=== PATIENT | female | born 1960 | race Caucasian/White ===

== ENCOUNTER 2016-08-23 08:49 | Inpatient (IN) | payer OTHER ==
[~2016-08-23 08:49] MED LIST: DEXAMETHASONE 4 MG/ML VIAL ONE; HYDROmorphONE/DILAUDID 2 MG/ML INJ ONE; LIDOCAINE 2% 100 MG/5 ML SYR IVP ONE; ONDANSETRON 4 MG/2 ML VIAL ONE; PROPOFOL 200 MG/20 ML VIAL ONE; ROCURONIUM 50 MG/5 ML VIAL ONE; SUGAMMADEX SODIUM 200 MG/2 ML VIAL IVP ONE; cefOXitin SODIUM 1 GM in D5W 50 ML IV ONE; fentaNYL 100 MCG/2 ML INJ ONE
[2016-08-23] MEDS ORDERED: LR 1,000 ML IV ONE (09:29)
[2016-08-23] MEDS ORDERED: LIDOCAINE 1% 5 ML SDV ID PRN (09:29)
[2016-08-23] MEDS ORDERED: BUPIVACAINE 0.5% 30 ML SDV ONE (09:54)
[2016-08-23] MEDS ORDERED: MIDAZOLAM 2 MG/2 ML VIAL ONE (10:07)
--- NOTE | 2016-08-23 12:14 | POSTOPPROG ---
Post Op Note Date of Operation: 08/23/16 Surgeon: Victoriano Verdin Social Services Analyst: Alexis Anesthesiologist: Alejandra Anesthesia: GET(General Endotracheal) Pre-op Diagnosis: cecal polyp Post-op Diagnosis: same Procedure: Lap assisted right colectomy Inf/Abcess present in the surg proc area at time of surgery?: No EBL: 50-100
[2016-08-23] MEDS ORDERED: fentaNYL 100 MCG/2 ML INJ ONE (12:34)
[2016-08-23] MEDS ORDERED: ONDANSETRON 4 MG/2 ML VIAL ONE (12:35)
[2016-08-23] MEDS ORDERED: HYDROmorphONE/DILAUDID 1 MG/ML SYR ONE (13:11)
[2016-08-23] MEDS: HYDROmorphONE/DILAUDID 1 MG/ML SYR IVP PRN ×2 (13:57→16:00)
[2016-08-23] MEDS: LR 1,000 ML IV SCH (14:00)
[2016-08-23] MEDS: ONDANSETRON 4 MG/2 ML VIAL IVP PRN ×2 (14:06→21:43)
[2016-08-23] MEDS ORDERED: NALOXONE HCL 0.4 MG/ML INJ IVP PRN (16:46)
[2016-08-23] MEDS ORDERED: HYDROmorphONE/DILAUDID 6 MG/30 ML PCA IV PRN (16:46)
[2016-08-23] MEDS: PROMETHAZINE HCL 25 MG/ML INJ IVP PRN (18:13)
--- NOTE | 2016-08-23 18:19 | GOP ---
DATE OF OPERATION: 08/23/2016 SURGEON: German Verdin MD SUPERVISOR FILTER ASSEMBLY: Stephanie Espinoza, whose presence was requested by me and medically necessary for the safe and timely completion of the case. ANESTHESIA: General endotracheal. ANESTHESIOLOGIST: Dr. Roberts PREOPERATIVE DIAGNOSIS: Cecal polyp. POSTOPERATIVE DIAGNOSIS: Cecal polyp. PROCEDURE PERFORMED: Laparoscopic-assisted right colectomy. FINDINGS: The patient's polyp was not present on initial cecectomy specimen. A right partial colec que was performed in a laparoscopic-assisted fashion. ESTIMATED BLOOD LOSS: 50 cc. INDICATIONS: A 56-year-old female with a history of a cecal polyp on colonoscopy. Risks and benefi ts of the procedure were discussed with the patient and her family, and their questions were answere d and they wished to proceed. DESCRIPTION OF PROCEDURE: Patient was in the supine position. After the induction of adequate gene ral endotracheal anesthesia, the patient was prepped and draped in a standard surgical fashion. 0.5 % Marcaine was injected throughout the infraumbilical area for local anesthesia. A 5 mm incision was made. The abdominal wall was elevated. A Veress needle inserted and after noti ng proper pressures, the abdomen was insufflated with carbon dioxide. A 5 mm trocar was passed and the camera followed. There was no apparent damage from trocar placement. Two more ports were place d, one 5 mm port in the suprapubic midline and one 12 mm port in the left lower quadrant. These wer e both placed under direct vision after injecting 0.5% Marcaine for local anesthesia. The abdomen was inspected. The liver and small bowel appeared normal. The right colon was grasped by the appendix and retracted medially. The white line of Toldt was then divided using sharp dissec tion and cautery. The colon was fully mobilized in this fashion, taking care to avoid the ureter. The seal of Treves were then mobilized in a similar fashion allowing inspection of the ileocecal johanna ction. After this was cleared off and the mesoappendix was divided using cautery, an Endo-SINGH stapl er with a blue load was fired across the base of the cecum, just below the insertion of the terminal ilium. This was carried across with another firing of the Endo-SINGH stapler. The specimen was then withdrawn with an EndoCatch bag and examined on the back table. On examination, the polyp was not identified. It was sent for pathologic inspection and they were u nable to identify the polyp. Therefore, a decision was made to proceed with right colectomy. The mobilization of right colon was completed by mobilizing the hepatic flexure using sharp dissecti on and cautery. Duodenum was carefully avoided as the colon was medialized. At this point, a mini laparotomy incision was made. After injecting 0.5% Marcaine, the infraumbilical incision was extend ed using a #10 blade. This was carried down to subcutaneous tissue with Bovie cautery and blunt dis section. The fascia was divided in the midline and the abdomen was entered. An Hugh wound protec tor was placed. The appendix and cecum were delivered into the incision. The area was palpated and the polyp was no pam near the ileocecal junction. Therefore, windows were opened in the mesentery using blunt dissec tion. The mesentery was serially clamped, divided, and ligated with 2-0 Vicryl ties. Sites for tra nsection were chosen. The bowel clamps were applied gently and the ilium was transected sharply. A pursestring suture of 3-0 PDS was placed. Once this was done, the anvil for an EEA 25 stapler was placed and the pursestring suture was tightened. The area was cleared off using blunt dissection an d cautery. The cecum itself was prepared. After bowel clamps were placed gently, an enterotomy was opened usin g cautery in the proximal cecum. The EEA stapler was placed through this and the spike extended. T his was mated to the anvil after ensuring there was no twisting or tension. The stapler was fired a nd the area inspected. A widely patent anastomosis was noted. The remaining colon was then transec pam with the Endo-SINGH stapler with a blue load x2. Once again, the area was inspected for patency o f the anastomosis, and twisting or tension. The bowel was then returned to its anatomical position and covered with the omentum. The area was inspected and good hemostasis was noted. The fascia at the 12 mm port site was closed using 0 Vicryl in an interrupted fashion. The fascia a t the mini laparotomy site was closed with 0 PDS in a running fashion. The wounds were thoroughly i rrigated and the skin at all sites was closed with 4-0 Monocryl in a subcuticular stitch. The wound s were sterilely dressed, the patient was extubated and taken to the PACU in stable condition. COMPLICATIONS: None. DRAINS: None. /[id number]/MODL
[2016-08-24] MEDS: ONDANSETRON 4 MG/2 ML VIAL IVP PRN ×3 (00:28→09:17)
[2016-08-24] MEDS: PROMETHAZINE HCL 25 MG/ML INJ IVP PRN (00:57)
[2016-08-24] MEDS: NALTREXONE 4.5 MG PO SCH (09:17)
--- NOTE | 2016-08-24 10:04 | SOAPPROG ---
SOAP Progress Note Assessment/Plan: Assessment: Plan: 08/24/16 10:02 Start toradol/tylenol. Clears slowly. Ambulate, IS. Subjective: Patient feels better, pain improved. Minimal nausea. Some ambulation. Objective: Vital Signs Temp Pulse Resp BP Pulse Ox 36.9 C 53 L 14 123/60 H 99 08/24/16 07:53 08/24/16 07:53 08/24/16 07:53 08/24/16 07:53 08/24/16 07:53 08/23/16 08/24/16 08/25/16 05:59 05:59 05:59 Intake Total 3492 Output Total 100 300 Balance 3392 -300 Alert, NAD RRR Abd soft, inc TTP Inc C/D/I ICD10 Worksheet Patient Problems: Problems Problem Status Onset Colon adenoma Acute
[2016-08-24] MEDS: KETOROLAC 15 MG/1 ML SDV IVP SCH ×2 (10:15→18:13)
[2016-08-24] MEDS: ACETAMINOPHEN 500 MG TAB PO PRN ×2 (16:08→21:59)
[2016-08-25] MEDS: KETOROLAC 15 MG/1 ML SDV IVP SCH ×3 (02:36→18:38)
[2016-08-25] MEDS: LR 1,000 ML IV SCH (05:17)
[2016-08-25] MEDS: ACETAMINOPHEN 500 MG TAB PO PRN ×2 (05:18→12:09)
--- NOTE | 2016-08-25 09:30 | SOAPPROG ---
SOAP Progress Note Assessment/Plan: Assessment: Plan: 08/24/16 10:02 Improving. Advance diet, cont ambulation. 08/25/16 09:29 Subjective: Patient feels markedly better, minimal pain. No N/V. Oliverio clears without difficulty. Ambulating, voiding. Objective: Vital Signs Temp Pulse Resp BP Pulse Ox 36.9 C 61 16 119/64 94 08/25/16 08:19 08/25/16 08:19 08/25/16 08:19 08/25/16 08:19 08/25/16 08:19 08/24/16 08/25/16 08/26/16 05:59 05:59 05:59 Intake Total 3492 1750 2326 Output Total 100 300 Balance 3392 1450 2326 Alert, NAD RRR Abd soft, inc TTP Inc C/D/I ICD10 Worksheet Patient Problems: Problems Problem Status Onset Colon adenoma Acute
[2016-08-25] MEDS: NALTREXONE 4.5 MG PO SCH (09:41)
[2016-08-25] MEDS ORDERED: LR 1,000 ML IV SCH (13:30)
[2016-08-25] MEDS: PROMETHAZINE HCL 25 MG/ML INJ IVP PRN (16:44)
--- NOTE | 2016-08-25 16:45 | CPEKG ---
Heart Rate: 82 RR Interval: 732 P-R Interval: 160 QRSD Interval: 76 QT Interval: 352 QTC Interval: 411 P [place]: 58 QRS [place]: 64 T Wave [place]: 34 EKG Severity - BORDERLINE ECG - EKG Impression: SINUS RHYTHM Electronically Signed By: Gallo Rouse 26-Aug-2016 14:36:04
[2016-08-25 16:58] LABS: % IMMATURE GRANULYOCYTES 0.2 % (0.0-1.1); ABSOLUTE IMMATURE GRANULOCYTES 0.01 10^3/uL (0.00-0.10); ADD DIFF? NO; ADD MORPH? NO; ADD SCAN? NO; ATYPICAL LYMPHOCYTE FLAG 0 (0-99); FRAGMENT RBC FLAG 0 (0-99); HEMOGLOBIN 11.2 g/dL (12.6-16.3); LEFT SHIFT FLG 70 (0-99); LIPEMIA HEMOLYSIS FLAG 80 (0-99); MEAN CELL HEMOGLOBIN 24.9 pg (27.9-34.1); MEAN CELL HEMOGLOBIN CONCENTR. 32.9 g/dL (32.4-36.7); MEAN CELL VOLUME 75.7 fL (81.5-99.8); MEAN PLATELET VOLUME 10.3 fL (8.7-11.7); PLATELET CLUMPS FLAG 10 (0-99); PLATELET COUNT 217 10^3/uL (150-400); RED BLOOD CELL COUNT 4.49 10^6/uL (4.18-5.33); RED CELL DISTRIBUTION WIDTH 14.6 % (11.5-15.2)
[2016-08-25 17:19] LABS: ANION GAP 9 mEq/L (8-16); CALCIUM 8.4 mg/dL (8.5-10.4); CARBON DIOXIDE 29 mEq/l (22-31); CHLORIDE 96 mEq/L (97-110); CREATININE 0.5 mg/dL (0.6-1.0); GLOMERULAR FILTRATION RATE > 60; GLUCOSE 120 mg/dL (70-100); POTASSIUM 3.4 mEq/L (3.5-5.2); SODIUM 134 mEq/L (134-144)
[2016-08-25] MEDS: NS W/ 20 KCl/L 1,000 ML IV SCH (18:37)
[2016-08-25] MEDS ORDERED: IOPAMIDOL (ISOVUE-300) 100 ML BTL IV ONE (18:42)
[2016-08-25] MEDS: PIPERACILLIN/TAZO 3.375 GM/DEX 50 ML IV SCH (23:22)
[2016-08-26] MEDS: KETOROLAC 15 MG/1 ML SDV IVP SCH ×3 (02:11→20:23)
[2016-08-26] MEDS: PIPERACILLIN/TAZO 3.375 GM/DEX 50 ML IV SCH ×4 (05:29→23:46)
[2016-08-26 05:39] LABS: % IMMATURE GRANULYOCYTES 0.2 % (0.0-1.1); ABSOLUTE IMMATURE GRANULOCYTES 0.01 10^3/uL (0.00-0.10); ADD DIFF? NO; ADD MORPH? NO; ADD SCAN? YES; ATYPICAL LYMPHOCYTE FLAG 0 (0-99); FRAGMENT RBC FLAG 0 (0-99); HEMATOCRIT 31.5 % (38.0-47.0); HEMOGLOBIN 10.2 g/dL (12.6-16.3); LIPEMIA HEMOLYSIS FLAG 80 (0-99); MEAN CELL HEMOGLOBIN 24.3 pg (27.9-34.1); MEAN CELL HEMOGLOBIN CONCENTR. 32.4 g/dL (32.4-36.7); MEAN CELL VOLUME 75.2 fL (81.5-99.8); MEAN PLATELET VOLUME 10.9 fL (8.7-11.7); PLATELET CLUMPS FLAG 10 (0-99); PLATELET COUNT 226 10^3/uL (150-400); RED BLOOD CELL COUNT 4.19 10^6/uL (4.18-5.33); RED CELL DISTRIBUTION WIDTH 14.9 % (11.5-15.2)
[2016-08-26 05:58] LABS: ALANINE AMINOTRANSFERASE 28 IU/L (9-52); ALBUMIN 2.4 g/dL (3.5-5.0); ALKALINE PHOSPHATASE 59 IU/L (38-126); ANION GAP 7 mEq/L (8-16); ASPARTATE AMINOTRANSFERASE 16 IU/L (14-46); BILIRUBIN,TOTAL 0.7 mg/dL (0.1-1.4); CALCIUM 8.2 mg/dL (8.5-10.4); CARBON DIOXIDE 29 mEq/l (22-31); CHLORIDE 99 mEq/L (97-110); CREATININE 0.6 mg/dL (0.6-1.0); GLOMERULAR FILTRATION RATE > 60; GLUCOSE 78 mg/dL (70-100); MAGNESIUM 1.8 mg/dL (1.6-2.3); POTASSIUM 3.7 mEq/L (3.5-5.2); SODIUM 135 mEq/L (134-144); TOTAL PROTEIN 4.9 g/dL (6.3-8.2)
[2016-08-26 06:09] LABS: LEFT SHIFT FLG 230 (0-99)
[2016-08-26 07:08] LABS: SCAN POSITIVE
[2016-08-26 07:13] LABS: MICROCYTES 1+; PLATELET ESTIMATE ADEQUATE (ADEQ)
[2016-08-26] MEDS: PROMETHAZINE HCL 25 MG/ML INJ IVP PRN (08:20)
--- NOTE | 2016-08-26 08:35 | SOAPPROG ---
QUIRINO Progress Note Assessment/Plan: Assessment: Plan: 08/24/16 10:02 Exam stable. Will continue conservative measures, but if no improvement plan exploration. D/w patient, questions answered. 08/25/16 09:29 08/26/16 08:33 Subjective: No changes, some discomfort when standing, none at rest. Denies N/V. No BM. Objective: Vital Signs Temp Pulse Resp BP Pulse Ox 36.9 C 68 16 92/54 L 100 08/26/16 08:00 08/26/16 08:00 08/26/16 08:00 08/26/16 08:00 08/26/16 08:00 Laboratory Results 08/26/16 04:59 08/26/16 04:59 08/25/16 08/26/16 08/27/16 05:59 05:59 05:59 Intake Total 1750 4498 Output Total 300 600 Balance 1450 3898 Alert, NAD RRR Abd inc TTP, +/- guarding. ICD10 Worksheet Patient Problems: Problems Problem Status Onset Colon adenoma Acute
[2016-08-26] MEDS ORDERED: BUPIVACAINE 0.5% 30 ML SDV ONE (13:18)
[2016-08-26] MEDS ORDERED: SCOPOLAMINE HYDROBROMIDE 1.5 MG PATCH TD ONE ×2 (16:55→17:00)
[2016-08-26] MEDS ORDERED: fentaNYL 100 MCG/2 ML INJ ONE (16:57)
[2016-08-26] MEDS ORDERED: LIDOCAINE 2% 5 ML SDV ONE (16:58)
[2016-08-26] MEDS ORDERED: DEXAMETHASONE 4 MG/ML VIAL ONE (16:58)
[2016-08-26] MEDS ORDERED: PROPOFOL/EMULSION 500 MG/50 ML BOTTLE IV ONE (16:58)
[2016-08-26] MEDS ORDERED: ROCURONIUM 50 MG/5 ML VIAL ONE ×2 (16:58→18:19)
[2016-08-26] MEDS ORDERED: DEXMEDETOMIDINE HCL 400 MCG in NS 100 ML IV SCH (17:00)
[2016-08-26] MEDS ORDERED: ONDANSETRON 4 MG/2 ML VIAL ONE (18:27)
--- NOTE | 2016-08-26 19:01 | POSTOPPROG ---
Post Op Note Date of Operation: 08/26/16 Surgeon: Victoriano Verdin Anesthesiologist: Andres Pre-op Diagnosis: peritonitis Post-op Diagnosis: bowel perforation Procedure: Diagnostic laparoscopy, repair of perforation Inf/Abcess present in the surg proc area at time of surgery?: Yes Depth: Organ Space EBL: Minimal Drains: Hosea Leija
--- NOTE | 2016-08-26 22:09 | GOP ---
DATE OF OPERATION: 08/26/2016 SURGEON: German Verdin MD PREOPERATIVE DIAGNOSIS: Peritonitis. POSTOPERATIVE DIAGNOSIS: Bowel perforation. PROCEDURE PERFORMED: 1. Diagnostic laparoscopy. 2. Enterorrhaphy. FINDINGS: The patient had a small hole in the anterior aspect of the ileocolic anastomosis. Modera te contamination was identified. No other lesions were identified. INDICATIONS: This is a 56-year-old female, status post laparoscopic-assisted right colectomy. The patient had peritoneal signs on exam. Risks and benefits of procedure were discussed with patient a nd family, their questions were answered. They wished to proceed. DESCRIPTION OF PROCEDURE: Patient was in supine position. After induction of adequate general endo tracheal anesthesia, the patient was prepped and draped in standard surgical fashion. 0.5% Marcaine was injected throughout the right lower quadrant incision. This was then opened with a #15 blade. The suture holding the fascia together was identified; this was transected with a blade. The table was rotated away and retractor was inserted into the fascial defect. The abdomen was entered easil y and the 12 mm trocar was passed. A camera followed, and there was no apparent damage from trocar placement. There was a moderate amount of seropurulent fluid concentrated in the right lower quadra nt and right upper quadrant. Two more ports were placed, both 5 mm ports, in the prior incision sit es in the suprapubic and infraumbilical midline; this was done after injecting 0.5% Marcaine for loc al anesthesia. The abdomen was then thoroughly irrigated and aspirated. The anastomosis was inspected. There was an approximately 1-2 mm hole in the anterior aspect of the anastomosis. The intestine was inspected and it was quite viable. There was no evidence of twisting or significant swelling. The remainder of the bowel was then examined and no other lesions were noted. Due to the apparent health of the bowel and lack of tension in the anastomosis, decision was made to repair this small perforation. Sutures of 3-0 Vicryl were laparoscopically placed to close the perforation. This was then reinforc ed with 3-0 Vicryl Lembert sutures in a horizontal mattress fashion; this resulted in excellent cove rage without noted compromise of the lumen. The staple lines were again inspected closely and no le sions were noted. Once again, the abdomen was thoroughly irrigated and aspirated and inspected. Du e to the contamination and likely paralysis of the bowel, an NG tube was placed by Dr. Pretty. Thi s was observed with laparoscope to adequate placement. A JENNY drain was then placed through the infer ior stab incision and placed in the right gutter behind the colon; this was secured with a 2-0 nylon in interrupted fashion. Once again, the abdomen was inspected. No other lesions were identified. The trocars were withdrawn under direct vision. The pneumoperitoneum was allowed to escape. The fa scia at both remaining port sites was closed with 0 Vicryl in interrupted fashion. Wounds were thor oughly irrigated and the skin was closed with 4-0 Monocryl in subcuticular stitch. The wounds were sterilely dressed, and the patient was extubated and taken to PACU in stable condition. /[id number]/MODL
[2016-08-26] MEDS: NS W/ 20 KCl/L 1,000 ML IV SCH (23:48)
[2016-08-27] MEDS: KETOROLAC 15 MG/1 ML SDV IVP SCH ×3 (02:29→17:55)
[2016-08-27 05:43] LABS: % IMMATURE GRANULYOCYTES 0.4 % (0.0-1.1); ABSOLUTE IMMATURE GRANULOCYTES 0.02 10^3/uL (0.00-0.10); ADD DIFF? NO; ADD MORPH? NO; ADD SCAN? YES; ATYPICAL LYMPHOCYTE FLAG 0 (0-99); FRAGMENT RBC FLAG 0 (0-99); HEMATOCRIT 30.7 % (38.0-47.0); HEMOGLOBIN 9.7 g/dL (12.6-16.3); LIPEMIA HEMOLYSIS FLAG 80 (0-99); MEAN CELL HEMOGLOBIN CONCENTR. 31.6 g/dL (32.4-36.7); MEAN PLATELET VOLUME 10.7 fL (8.7-11.7); PLATELET CLUMPS FLAG 0 (0-99); PLATELET COUNT 240 10^3/uL (150-400); RED BLOOD CELL COUNT 4.04 10^6/uL (4.18-5.33); RED CELL DISTRIBUTION WIDTH 15.2 % (11.5-15.2)
[2016-08-27 05:48] LABS: LEFT SHIFT FLG 300 (0-99)
[2016-08-27] MEDS: PIPERACILLIN/TAZO 3.375 GM/DEX 50 ML IV SCH ×4 (06:00→23:59)
[2016-08-27 06:06] LABS: ALANINE AMINOTRANSFERASE 27 IU/L (9-52); ALBUMIN 2.2 g/dL (3.5-5.0); ALKALINE PHOSPHATASE 63 IU/L (38-126); ANION GAP 13 mEq/L (8-16); ASPARTATE AMINOTRANSFERASE 18 IU/L (14-46); BILIRUBIN,TOTAL 0.7 mg/dL (0.1-1.4); CALCIUM 8.6 mg/dL (8.5-10.4); CARBON DIOXIDE 22 mEq/l (22-31); CHLORIDE 106 mEq/L (97-110); CREATININE 0.7 mg/dL (0.6-1.0); GLOMERULAR FILTRATION RATE > 60; GLUCOSE 81 mg/dL (70-100); POTASSIUM 4.2 mEq/L (3.5-5.2); SODIUM 141 mEq/L (134-144); TOTAL PROTEIN 4.6 g/dL (6.3-8.2)
[2016-08-27 07:11] LABS: SCAN POSITIVE
[2016-08-27 07:20] LABS: PLATELET ESTIMATE ADEQUATE (ADEQ); POLYCHROMASIA 1+
[2016-08-27] MEDS ORDERED: D10W 1,000 ML IV PRN (09:32)
--- NOTE | 2016-08-27 09:34 | SOAPPROG ---
SOAP Progress Note Assessment/Plan: Assessment: Plan: 08/24/16 10:02 Improved. Will start TPN, cont NGT/NPO. Cont abx, await cx results. Ambulate. 08/25/16 09:29 08/26/16 08:33 08/27/16 09:33 Subjective: Patient feels better, minimal pain, no N/V. +flatus. Objective: Vital Signs Temp Pulse Resp BP Pulse Ox 37.1 C 78 18 91/53 L 92 08/27/16 08:50 08/27/16 08:50 08/27/16 08:50 08/27/16 08:50 08/27/16 08:50 Microbiology 08/26/16 17:33 Gram Stain - Final Peritoneal Fluid - Eswab Laboratory Results 08/27/16 04:55 08/27/16 04:55 08/26/16 08/27/16 08/28/16 05:59 05:59 05:59 Intake Total 4498 3828 Output Total 600 310 Balance 3898 3518 Alert, NAD RRR Abd soft, inc TTP Inc C/D/I JENNY serosang ICD10 Worksheet Patient Problems: Problems Problem Status Onset Colon adenoma Acute
[2016-08-27] MEDS ORDERED: ALTEPLASE 2 MG VIAL IVP PRN (09:46)
[2016-08-27 10:46] LABS: ADD MORPH? NO; ATYPICAL LYMPHOCYTE FLAG 0 (0-99); FRAGMENT RBC FLAG 0 (0-99); HEMATOCRIT 30.6 % (38.0-47.0); HEMOGLOBIN 10.1 g/dL (12.6-16.3); LIPEMIA HEMOLYSIS FLAG 80 (0-99); MEAN CELL HEMOGLOBIN 24.7 pg (27.9-34.1); MEAN CELL VOLUME 74.8 fL (81.5-99.8); MEAN PLATELET VOLUME 10.6 fL (8.7-11.7); PLATELET CLUMPS FLAG 30 (0-99); PLATELET COUNT 273 10^3/uL (150-400); RED BLOOD CELL COUNT 4.09 10^6/uL (4.18-5.33); RED CELL DISTRIBUTION WIDTH 15.3 % (11.5-15.2)
[2016-08-27 10:50] LABS: ADD DIFF? YES; ADD SCAN? NO; LEFT SHIFT FLG 300 (0-99)
[2016-08-27 10:54] LABS: ALANINE AMINOTRANSFERASE 31 IU/L (9-52); ALBUMIN 2.3 g/dL (3.5-5.0); ALKALINE PHOSPHATASE 62 IU/L (38-126); ANION GAP 11 mEq/L (8-16); ASPARTATE AMINOTRANSFERASE 17 IU/L (14-46); BILIRUBIN,TOTAL 0.7 mg/dL (0.1-1.4); CALCIUM 8.6 mg/dL (8.5-10.4); CARBON DIOXIDE 21 mEq/l (22-31); CHLORIDE 109 mEq/L (97-110); CREATININE 0.7 mg/dL (0.6-1.0); GLOMERULAR FILTRATION RATE > 60; GLUCOSE 87 mg/dL (70-100); POTASSIUM 4.7 mEq/L (3.5-5.2); SODIUM 141 mEq/L (134-144); TOTAL PROTEIN 4.8 g/dL (6.3-8.2); TRIGLYCERIDE 84 mg/dL (35-135)
[2016-08-27 11:15] LABS: INR 1.46 (0.83-1.16); PROTIME(PATIENT) 17.7 SEC (12.0-15.0)
[2016-08-27 11:16] LABS: APTT 32.5 SEC (23.0-38.0)
[2016-08-27 11:38] LABS: PLATELET ESTIMATE ADEQUATE (ADEQ); POLYCHROMASIA 1+
[2016-08-27] MEDS: TPN W/ FAMOTIDINE 1 EA BAG IV SCH (22:31)
[2016-08-27] MEDS: NS W/ 20 KCl/L 1,000 ML IV SCH (22:31)
[2016-08-28] MEDS: KETOROLAC 15 MG/1 ML SDV IVP SCH ×3 (01:33→18:27)
[2016-08-28] MEDS: ONDANSETRON 4 MG/2 ML VIAL IVP PRN ×2 (01:44→10:01)
[2016-08-28] MEDS: PIPERACILLIN/TAZO 3.375 GM/DEX 50 ML IV SCH ×3 (05:29→18:27)
[2016-08-28 06:03] LABS: ADD MORPH? NO; ADD SCAN? YES; ATYPICAL LYMPHOCYTE FLAG 0 (0-99); FRAGMENT RBC FLAG 0 (0-99); HEMATOCRIT 27.7 % (38.0-47.0); HEMOGLOBIN 8.9 g/dL (12.6-16.3); LIPEMIA HEMOLYSIS FLAG 80 (0-99); MEAN CELL HEMOGLOBIN 23.9 pg (27.9-34.1); MEAN CELL HEMOGLOBIN CONCENTR. 32.1 g/dL (32.4-36.7); MEAN CELL VOLUME 74.3 fL (81.5-99.8); MEAN PLATELET VOLUME 10.3 fL (8.7-11.7); PLATELET CLUMPS FLAG 0 (0-99); PLATELET COUNT 265 10^3/uL (150-400); RED BLOOD CELL COUNT 3.73 10^6/uL (4.18-5.33); RED CELL DISTRIBUTION WIDTH 15.5 % (11.5-15.2)
[2016-08-28 06:07] LABS: INR 1.13 (0.83-1.16); PROTIME(PATIENT) 14.4 SEC (12.0-15.0)
[2016-08-28 06:08] LABS: APTT 30.4 SEC (23.0-38.0)
[2016-08-28 06:15] LABS: ALANINE AMINOTRANSFERASE 24 IU/L (9-52); ALBUMIN 2.1 g/dL (3.5-5.0); ALKALINE PHOSPHATASE 57 IU/L (38-126); ANION GAP 6 mEq/L (8-16); ASPARTATE AMINOTRANSFERASE 15 IU/L (14-46); BILIRUBIN,TOTAL 0.4 mg/dL (0.1-1.4); CALCIUM 8.5 mg/dL (8.5-10.4); CARBON DIOXIDE 26 mEq/l (22-31); CHLORIDE 109 mEq/L (97-110); CREATININE 0.7 mg/dL (0.6-1.0); GLOMERULAR FILTRATION RATE > 60; GLUCOSE 147 mg/dL (70-100); POTASSIUM 3.9 mEq/L (3.5-5.2); SODIUM 141 mEq/L (134-144); TOTAL PROTEIN 4.3 g/dL (6.3-8.2)
[2016-08-28 06:23] LABS: LEFT SHIFT FLG 140 (0-99)
[2016-08-28 07:25] LABS: ADD DIFF? YES; SCAN POSITIVE
[2016-08-28 07:34] LABS: PLATELET ESTIMATE ADEQUATE (ADEQ)
[2016-08-28 07:37] LABS: LARGE PLATELETS PRESENT
[2016-08-28] MEDS ORDERED: BENZOCAINE UNIT DOSE SPRAY HURRICAINE MM PRN (11:39)
--- NOTE | 2016-08-28 11:39 | SOAPPROG ---
SOAP Progress Note Assessment/Plan: Assessment: Plan: 08/24/16 10:02 Stable post-op. Still with minimal evidence of bowel function, plan cont NGT/ IVF/IV abx. Cont JENNY. 08/26/16 08:33 08/27/16 09:33 08/28/16 11:36 Subjective: Patient c/o ST due to NGT. No further flatus, no BM. Ambulating. Objective: Vital Signs Temp Pulse Resp BP Pulse Ox 36.7 C 59 L 12 98/60 L 98 08/28/16 09:04 08/28/16 09:04 08/28/16 09:04 08/28/16 09:04 08/28/16 09:04 Microbiology 08/26/16 17:33 Mycobacterial Smear (MICHAEL) - Final Peritoneal Fluid - Eswab 08/26/16 17:33 Gram Stain - Final Peritoneal Fluid - Eswab Laboratory Results 08/28/16 05:15 08/28/16 05:15 08/27/16 08/28/16 08/29/16 05:59 05:59 05:59 Intake Total 3828 2303 265 Output Total 310 710 Balance 3518 1593 265 PT 14.4 SEC (12.0-15.0) 08/28/16 05:15 INR 1.13 (0.83-1.16) 08/28/16 05:15 Alert, NAD RRR Abd soft, inc TTP Inc C/D/I JENNY serous/serosang ICD10 Worksheet Patient Problems: Problems Problem Status Onset Colon adenoma Acute
[2016-08-28] MEDS ORDERED: INSULIN REGULAR, HUMAN 100 UNIT/1 ML VIAL LOW SC PRN (12:37)
[2016-08-28] MEDS ORDERED: D50W 25 GM/50 ML SYR IVP PRN (12:37)
[2016-08-28] MEDS ORDERED: PARAMETERS MISC PRN (12:37)
[2016-08-28] MEDS ORDERED: D50W 25 GM/50 ML VIAL IVP PRN (12:37)
[2016-08-28] MEDS: INSULIN REGULAR, HUMAN 100 UNIT/1 ML VIAL LOW SC SCH (18:26)
[2016-08-28] MEDS: TPN W/ FAMOTIDINE 1 EA BAG IV SCH (22:24)
[2016-08-29] MEDS: PIPERACILLIN/TAZO 3.375 GM/DEX 50 ML IV SCH ×4 (01:07→17:52)
[2016-08-29] MEDS: INSULIN REGULAR, HUMAN 100 UNIT/1 ML VIAL LOW SC SCH ×4 (01:14→18:24)
[2016-08-29] MEDS: KETOROLAC 15 MG/1 ML SDV IVP SCH (04:55)
[2016-08-29 05:10] LABS: % IMMATURE GRANULYOCYTES 0.8 % (0.0-1.1); ABSOLUTE IMMATURE GRANULOCYTES 0.06 10^3/uL (0.00-0.10); ADD DIFF? NO; ADD MORPH? NO; ADD SCAN? NO; ATYPICAL LYMPHOCYTE FLAG 30 (0-99); FRAGMENT RBC FLAG 0 (0-99); HEMATOCRIT 27.9 % (38.0-47.0); LEFT SHIFT FLG 30 (0-99); LIPEMIA HEMOLYSIS FLAG 80 (0-99); MEAN CELL HEMOGLOBIN 24.4 pg (27.9-34.1); MEAN CELL HEMOGLOBIN CONCENTR. 32.3 g/dL (32.4-36.7); MEAN CELL VOLUME 75.6 fL (81.5-99.8); MEAN PLATELET VOLUME 10.8 fL (8.7-11.7); PLATELET CLUMPS FLAG 0 (0-99); PLATELET COUNT 258 10^3/uL (150-400); RED BLOOD CELL COUNT 3.69 10^6/uL (4.18-5.33); RED CELL DISTRIBUTION WIDTH 15.7 % (11.5-15.2)
[2016-08-29 05:32] LABS: INR 1.1 (0.83-1.16); PROTIME(PATIENT) 14.1 SEC (12.0-15.0)
[2016-08-29 05:35] LABS: ALANINE AMINOTRANSFERASE 24 IU/L (9-52); ALBUMIN 2.2 g/dL (3.5-5.0); ALKALINE PHOSPHATASE 65 IU/L (38-126); ANION GAP 7 mEq/L (8-16); ASPARTATE AMINOTRANSFERASE 17 IU/L (14-46); BILIRUBIN,TOTAL 0.5 mg/dL (0.1-1.4); CALCIUM 7.9 mg/dL (8.5-10.4); CARBON DIOXIDE 27 mEq/l (22-31); CHLORIDE 110 mEq/L (97-110); CREATININE 0.5 mg/dL (0.6-1.0); GLOMERULAR FILTRATION RATE > 60; GLUCOSE 131 mg/dL (70-100); MAGNESIUM 1.9 mg/dL (1.6-2.3); POTASSIUM 3.4 mEq/L (3.5-5.2); SODIUM 144 mEq/L (134-144); TOTAL PROTEIN 4.8 g/dL (6.3-8.2); TRIGLYCERIDE 117 mg/dL (35-135)
[2016-08-29 05:38] LABS: APTT 28.3 SEC (23.0-38.0)
[2016-08-29] MEDS: NS W/ 20 KCl/L 1,000 ML IV SCH (10:34)
--- NOTE | 2016-08-29 11:15 | SOAPPROG ---
SOAP Progress Note Assessment/Plan: Assessment: Plan: 08/24/16 10:02 Improving. NGT d/c'd, will cont NPO for now. Cont JENNY, abx, TPN. 08/26/16 08:33 08/27/16 09:33 08/28/16 11:36 08/29/16 11:14 Subjective: Patient feels better, minimal pain, no N/V. +BM x 3. Objective: Vital Signs Temp Pulse Resp BP Pulse Ox 36.5 C 68 18 109/58 L 94 08/29/16 09:05 08/29/16 09:05 08/29/16 09:05 08/29/16 09:05 08/29/16 09:05 Microbiology 08/26/16 17:33 Gram Stain - Final Peritoneal Fluid - Eswab Laboratory Results 08/29/16 04:46 08/29/16 04:46 08/28/16 08/29/16 08/30/16 05:59 05:59 05:59 Intake Total 2303 1800 Output Total 710 280 35 Balance 1593 1520 -35 PT 14.1 SEC (12.0-15.0) 08/29/16 04:46 INR 1.10 (0.83-1.16) 08/29/16 04:46 Alert, NAD RRR Abd soft, NTTP Inc C/D/I JENNY serous. ICD10 Worksheet Patient Problems: Problems Problem Status Onset Colon adenoma Acute
[2016-08-29] MEDS ORDERED: K PHOS 10 MMOL in D5W 250 ML IV ONE (11:30)
[2016-08-29] MEDS: ACETAMINOPHEN 500 MG TAB PO PRN ×2 (11:42→20:13)
[2016-08-29] MEDS: POTASSIUM Cl (KCl) 100 ML IV SCH ×3 (14:09→16:54)
[2016-08-29] MEDS: TPN W/ FAMOTIDINE 1 EA BAG IV SCH (20:16)
[2016-08-30] MEDS: INSULIN REGULAR, HUMAN 100 UNIT/1 ML VIAL LOW SC SCH ×2 (00:14→06:44)
[2016-08-30] MEDS: PIPERACILLIN/TAZO 3.375 GM/DEX 50 ML IV SCH ×4 (00:21→17:43)
[2016-08-30 05:24] LABS: % IMMATURE GRANULYOCYTES 2.2 % (0.0-1.1); ABSOLUTE IMMATURE GRANULOCYTES 0.16 10^3/uL (0.00-0.10); ABSOLUTE NRBC COUNT 0.02 10^3/uL (0-0.01); ADD DIFF? NO; ADD MORPH? NO; ADD SCAN? YES; ATYPICAL LYMPHOCYTE FLAG 70 (0-99); FRAGMENT RBC FLAG 20 (0-99); HEMATOCRIT 28.9 % (38.0-47.0); HEMOGLOBIN 9.3 g/dL (12.6-16.3); LIPEMIA HEMOLYSIS FLAG 80 (0-99); MEAN CELL HEMOGLOBIN 24.1 pg (27.9-34.1); MEAN CELL HEMOGLOBIN CONCENTR. 32.2 g/dL (32.4-36.7); MEAN CELL VOLUME 74.9 fL (81.5-99.8); MEAN PLATELET VOLUME 10.6 fL (8.7-11.7); NRBC-AUTO% 0.3 % (0.0-0.2); PLATELET CLUMPS FLAG 0 (0-99); PLATELET COUNT 257 10^3/uL (150-400); RED BLOOD CELL COUNT 3.86 10^6/uL (4.18-5.33); RED CELL DISTRIBUTION WIDTH 15.7 % (11.5-15.2)
[2016-08-30 05:26] LABS: LEFT SHIFT FLG 140 (0-99)
[2016-08-30 05:28] LABS: ALANINE AMINOTRANSFERASE 22 IU/L (9-52); ALKALINE PHOSPHATASE 72 IU/L (38-126); ANION GAP 7 mEq/L (8-16); ASPARTATE AMINOTRANSFERASE 18 IU/L (14-46); BILIRUBIN,TOTAL 0.6 mg/dL (0.1-1.4); CARBON DIOXIDE 27 mEq/l (22-31); CHLORIDE 105 mEq/L (97-110); CREATININE 0.4 mg/dL (0.6-1.0); GLOMERULAR FILTRATION RATE > 60; GLUCOSE 99 mg/dL (70-100); MAGNESIUM 1.6 mg/dL (1.6-2.3); POTASSIUM 3.7 mEq/L (3.5-5.2); SODIUM 139 mEq/L (134-144); TOTAL PROTEIN 4.4 g/dL (6.3-8.2)
[2016-08-30 06:57] LABS: SCAN POSITIVE
[2016-08-30 07:14] LABS: MICROCYTES 1+
[2016-08-30 07:15] LABS: PLATELET ESTIMATE ADEQUATE (ADEQ); POLYCHROMASIA 1+
[2016-08-30 07:16] LABS: TOXIC GRANULATION PRESENT
[2016-08-30] MEDS: ACETAMINOPHEN 500 MG TAB PO PRN (07:42)
--- NOTE | 2016-08-30 09:19 | SOAPPROG ---
SOAP Progress Note Assessment/Plan: Assessment: Plan: 08/24/16 10:02 Some fever and tachycardia overnight, improved now. Check U/S for DVT, cont IS/ ambulation. Start clears again and monitor JENNY. D/w patient and family at length. 08/26/16 08:33 08/27/16 09:33 08/28/16 11:36 08/29/16 11:14 08/30/16 09:17 Subjective: Patient with some SOB overnight, improved now. Minimal pain. Denies N/V. Objective: Vital Signs Temp Pulse Resp BP Pulse Ox 37.9 C 85 14 112/54 L 93 08/30/16 08:46 08/30/16 08:46 08/30/16 08:46 08/30/16 08:46 08/30/16 08:46 Microbiology 08/26/16 17:33 Gram Stain - Final Peritoneal Fluid - Eswab Laboratory Results 08/30/16 04:10 08/30/16 04:10 08/29/16 08/30/16 08/31/16 05:59 05:59 05:59 Intake Total 1800 2550 Output Total 680 835 Balance 1120 1715 PT 14.1 SEC (12.0-15.0) 08/29/16 04:46 INR 1.10 (0.83-1.16) 08/29/16 04:46 Alert, NAD RRR Abd slightly distended, min TTP Inc C/D/I JENNY serous. ICD10 Worksheet Patient Problems: Problems Problem Status Onset Colon adenoma Acute
[2016-08-30] MEDS ORDERED: KETOROLAC 15 MG/1 ML SDV IVP SCH (09:30)
[2016-08-30] MEDS: KETOROLAC 15 MG/1 ML SDV IVP SCH ×2 (09:47→17:44)
[2016-08-30 15:48] LABS: INR 1.21 (0.83-1.16); PROTIME(PATIENT) 15.3 SEC (12.0-15.0)
[2016-08-30] MEDS ORDERED: ZOLPIDEM TARTRATE 5 MG TAB PO PRN (18:43)
[2016-08-30] MEDS: TPN W/ FAMOTIDINE 1 EA BAG IV SCH (20:11)
[2016-08-31] MEDS: KETOROLAC 15 MG/1 ML SDV IVP SCH ×3 (00:48→17:16)
[2016-08-31] MEDS: PIPERACILLIN/TAZO 3.375 GM/DEX 50 ML IV SCH ×4 (00:48→21:54)
[2016-08-31 05:31] LABS: ANION GAP 8 mEq/L (8-16); CALCIUM 7.8 mg/dL (8.5-10.4); CARBON DIOXIDE 25 mEq/l (22-31); CHLORIDE 101 mEq/L (97-110); CREATININE 0.4 mg/dL (0.6-1.0); GLOMERULAR FILTRATION RATE > 60; GLUCOSE 110 mg/dL (70-100); MAGNESIUM 1.4 mg/dL (1.6-2.3); POTASSIUM 3.8 mEq/L (3.5-5.2); SODIUM 134 mEq/L (134-144)
[2016-08-31] MEDS: ENOXAPARIN 40 MG/0.4 ML SYR SC SCH (07:54)
--- NOTE | 2016-08-31 10:40 | SOAPPROG ---
SOAP Progress Note Assessment/Plan: Assessment: Plan: 08/24/16 10:02 Improved. Still with tachycardia of uncertain etiology; if it persists consider CT. Cont clears and TPN for now. 08/26/16 08:33 08/27/16 09:33 08/28/16 11:36 08/29/16 11:14 08/30/16 09:17 08/31/16 10:39 Subjective: Patient feels better, pain improved. Oliverio po, +BM/flatus. Objective: Vital Signs Temp Pulse Resp BP Pulse Ox 37.2 C 91 18 123/73 H 95 08/31/16 07:31 08/31/16 07:31 08/31/16 07:31 08/31/16 07:31 08/31/16 07:31 Microbiology 08/26/16 17:33 Gram Stain - Final Peritoneal Fluid - Eswab 08/26/16 17:33 Mycobacterial Smear (MICHAEL) - Final Peritoneal Fluid - Eswab Laboratory Results 08/30/16 04:10 08/31/16 05:00 08/30/16 08/31/16 09/01/16 05:59 05:59 05:59 Intake Total 2550 2665 Output Total 835 685 Balance 1715 1980 PT 15.3 SEC (12.0-15.0) H 08/30/16 04:30 INR 1.21 (0.83-1.16) H 08/30/16 04:30 Alert, NAD RRR Abd sl distended, NTTP Inc C/D/I JENNY serous. ICD10 Worksheet Patient Problems: Problems Problem Status Onset Colon adenoma Acute
[2016-08-31] MEDS: ONDANSETRON 4 MG/2 ML VIAL IVP PRN (13:24)
[2016-08-31] MEDS ORDERED: MAGNESIUM SULF 2 GM/WATER 50 ML IV ONE (13:30)
[2016-08-31] MEDS ORDERED: IOPAMIDOL (ISOVUE-300) 100 ML BTL IV ONE (13:42)
[2016-08-31] MEDS ORDERED: BUPIVACAINE 0.5% 30 ML SDV ONE (15:30)
[2016-08-31] MEDS ORDERED: PROPOFOL/EMULSION 500 MG/50 ML BOTTLE IV ONE (16:35)
[2016-08-31] MEDS ORDERED: MIDAZOLAM 2 MG/2 ML VIAL ONE (16:40)
[2016-08-31] MEDS ORDERED: fentaNYL 250 MCG/5 ML INJ ONE (16:47)
[2016-08-31] MEDS ORDERED: ROCURONIUM 50 MG/5 ML VIAL ONE (16:47)
[2016-08-31] MEDS ORDERED: ALBUMIN 5% 250 ML BOTTLE IV ONE (16:51)
[2016-08-31] MEDS ORDERED: CALCIUM CHLORIDE 1 GM/10 ML INJ ONE (17:01)
[2016-08-31] MEDS ORDERED: LIDOCAINE 2% 5 ML SDV ONE (17:01)
[2016-08-31] MEDS ORDERED: SUGAMMADEX SODIUM 200 MG/2 ML VIAL IVP ONE (18:22)
[2016-08-31] MEDS ORDERED: ONDANSETRON 4 MG/2 ML VIAL ONE (18:22)
[2016-08-31] MEDS ORDERED: DEXAMETHASONE 4 MG/ML VIAL ONE (18:22)
[2016-08-31] MEDS ORDERED: METOCLOPRAMIDE 10 MG/2 ML VIAL ONE (18:22)
[2016-08-31] MEDS ORDERED: morphINE PCA 30 MG/30 ML PCA IV PRN (19:50)
[2016-08-31] MEDS ORDERED: NALOXONE HCL 0.4 MG/ML INJ IVP PRN (19:50)
--- NOTE | 2016-08-31 19:52 | POSTOPPROG ---
Post Op Note Date of Operation: 08/31/16 Surgeon: Victoriano Verdin Glass Technician/Installer: Dr. Vernon Anesthesiologist: Dr. Carrasco Anesthesia: GET(General Endotracheal) Pre-op Diagnosis: Intestinal perforation Post-op Diagnosis: same Procedure: Exploratory laparotomy, right colectomy Inf/Abcess present in the surg proc area at time of surgery?: Yes Depth: Organ Space EBL: 50-100
[2016-08-31] MEDS: TPN W/ FAMOTIDINE 1 EA BAG IV SCH (21:54)
[2016-09-01] MEDS: KETOROLAC 15 MG/1 ML SDV IVP SCH ×3 (00:43→17:45)
[2016-09-01] MEDS: PIPERACILLIN/TAZO 3.375 GM/DEX 50 ML IV SCH ×4 (00:43→17:45)
[2016-09-01] MEDS: NS W/ 20 KCl/L 1,000 ML IV SCH ×2 (00:47→21:02)
--- NOTE | 2016-09-01 01:26 | GOP ---
[f rep st] OPERATIVE REPORT DATE OF OPERATION: 08/31/2016 SURGEON: German Verdin MD CABLEWAY OPERATOR: Dr. Montenegro, whose presence was requested by me and medically necessary for the safe and t imely completion of this case. ANESTHESIA: General endotracheal anesthesia. ANESTHESIOLOGIST: Dr. Carrasco. PREOPERATIVE DIAGNOSIS: Intestinal perforation. POSTOPERATIVE DIAGNOSIS: Intestinal perforation. PROCEDURE PERFORMED: 1. Exploratory laparotomy. 2. Right colectomy. FINDINGS: The patient had significant feculent contamination. No loculated abscess is identified. ESTIMATED BLOOD LOSS: 50 cc. INDICATIONS: A 56-year-old female, status post right colectomy, and then subsequent laparoscopic re pair of perforation. The patient developed tachycardia, and CT scan demonstrated extravasation of c ontrast. Risks and benefits of the procedure were discussed with the patient and her family, their questions were answered, and they wished to proceed. DESCRIPTION OF PROCEDURE: The patient was placed in supine position. After induction of adequate g eneral endotracheal anesthesia, the patient was examined, and the JENNY drain was removed. Upon remova l of the JENNY drain, the contamination extravasated from the 5 mm port site. Decision was made at [facility] point to convert to laparotomy. The patient was sterilely prepped and draped. The midline area was injected with 0.5% Marcaine for local anesthesia. A midline incision was made with a #15 blade. The inferior aspect of this was op ened after cutting the suture with scissors. The fascia was then further divided in the midline wit h Bovie cautery. Significant contamination was identified, and this was thoroughly irrigated and as pirated. After several liters of saline irrigation, the anastomosis was delivered into the midline wound. It appeared to have perforations in both the anterior and posterior aspects. The bowel itse lf appeared swollen but viable. No hemorrhagic or gangrenous areas were identified. There was no t wisting or tension noted. Windows were opened in the mesentery proximal and distal to the anastomosis. A SINGH staple load was passed across each of these and fired. The remaining mesentery was taken using Harmonic scalpel. G ood blood supply was still noted. The specimen was sent for permanent section. The colon was then mobilized using blunt dissection and Harmonic scalpel. Care was taken to avoid the duodenum. Once the colon was significantly mobilized in the midline, the entire small bowel was run. Loculations w ere broken down bluntly and fibrinous exudate was peeled off gently. The small bowel was examined a nd found to be without lesion. The abdomen was then thoroughly irrigated again with several liters of warm saline. The small bowel was then returned to its anatomical position, and the large bowel w as similarly examined. The omentum was again peeled of its fibrinous exudate and replaced. Decision was made to perform a hand-sewn anastomosis. The staple lines were trimmed after applying gentle bowel clamps. A posterior row of 3-0 Vicryl interrupted sutures was placed prior to trimming the staple lines. Next, running 3-0 Vicryl sutures were used to create the anastomosis itself. On ce this was completed, an anterior row of Lembert sutures was placed using 3-0 Vicryl in interrupted fashion. Widely patent anastomosis was identified with excellent bowel viability. Mesentery was c losed using 3-0 Vicryl in a running fashion. The anastomosis was then replaced in its anatomical po sition, and the omentum was placed to cover it. The abdomen was once again irrigated with warm saline. No further contamination was identified. Al l quadrants of the abdomen were carefully irrigated and examined. Decision was made not to place a drain due to lack of specific area of contamination. The fascia was closed using 0 PDS in a running fashion. The wound was thoroughly irrigated. The skin at all sites was closed with neftali. The wound was sterilely dressed, and the patient was extubated and taken to the PACU in stable condition . DRAINS: None. /[id number]/MODL
[2016-09-01] MEDS: ENOXAPARIN 40 MG/0.4 ML SYR SC SCH (07:59)
--- NOTE | 2016-09-01 10:25 | SOAPPROG ---
SOAP Progress Note Assessment/Plan: Assessment: Plan: 08/24/16 10:02 Improved. TPN/ice chips/abx. Ambulate, IS. 08/26/16 08:33 08/27/16 09:33 08/28/16 11:36 08/29/16 11:14 08/30/16 09:17 08/31/16 10:39 09/01/16 10:24 Subjective: Patient feels better, minimal pain, no N/V. Ambulating. Objective: Vital Signs Temp Pulse Resp BP Pulse Ox 36.9 C 85 16 111/63 96 09/01/16 07:39 09/01/16 10:04 09/01/16 10:04 09/01/16 07:39 09/01/16 10:04 Microbiology 08/26/16 17:33 Gram Stain - Final Peritoneal Fluid - Eswab Laboratory Results 08/30/16 04:10 08/31/16 05:00 08/31/16 09/01/16 09/02/16 05:59 05:59 05:59 Intake Total 2665 3160 Output Total 685 520 Balance 1980 2640 PT 15.3 SEC (12.0-15.0) H 08/30/16 04:30 INR 1.21 (0.83-1.16) H 08/30/16 04:30 Alert, NAD RRR Abd soft, inc TTP Upper drsg C/D/I Lower with some serous drainage. ICD10 Worksheet Patient Problems: Problems Problem Status Onset Colon adenoma Acute
[2016-09-01] MEDS: TPN W/ FAMOTIDINE 1 EA BAG IV SCH (21:02)
[2016-09-02] MEDS: PIPERACILLIN/TAZO 3.375 GM/DEX 50 ML IV SCH ×2 (00:25→05:30)
[2016-09-02] MEDS: KETOROLAC 15 MG/1 ML SDV IVP SCH ×3 (00:25→17:14)
[2016-09-02 03:58] LABS: ANION GAP 8 mEq/L (8-16); CARBON DIOXIDE 27 mEq/l (22-31); CHLORIDE 104 mEq/L (97-110); CREATININE 0.5 mg/dL (0.6-1.0); GLOMERULAR FILTRATION RATE > 60; GLUCOSE 126 mg/dL (70-100); MAGNESIUM 2.4 mg/dL (1.6-2.3); POTASSIUM 4.3 mEq/L (3.5-5.2); SODIUM 139 mEq/L (134-144)
[2016-09-02] MEDS: ENOXAPARIN 40 MG/0.4 ML SYR SC SCH (10:04)
--- NOTE | 2016-09-02 10:32 | SOAPPROG ---
SOAP Progress Note Assessment/Plan: Assessment: Plan: 08/24/16 10:02 Improved. Wean TPN, consider advancing diet. 08/26/16 08:33 08/27/16 09:33 08/28/16 11:36 08/29/16 11:14 08/30/16 09:17 08/31/16 10:39 09/01/16 10:24 09/02/16 10:31 Subjective: Patient feels better, pain controlled, tolerating clears. + flatus. Objective: Vital Signs Temp Pulse Resp BP Pulse Ox 37.1 C 76 18 121/69 H 97 09/02/16 08:00 09/02/16 08:00 09/02/16 08:00 09/02/16 08:00 09/02/16 08:00 Microbiology 08/26/16 17:33 Gram Stain - Final Peritoneal Fluid - Eswab Laboratory Results 08/30/16 04:10 09/02/16 03:35 09/01/16 09/02/16 09/03/16 05:59 05:59 05:59 Intake Total 3160 4560 Output Total 520 Balance 2640 4560 PT 15.3 SEC (12.0-15.0) H 08/30/16 04:30 INR 1.21 (0.83-1.16) H 08/30/16 04:30 Alert, NAD RRR Abd soft, inc TTP Inc C/D/I ICD10 Worksheet Patient Problems: Problems Problem Status Onset Colon adenoma Acute
[2016-09-02] MEDS: PIPERACILLIN SODIUM/TAZOBACTAM 3.375 GM in D5W 50 ML IV SCH ×2 (11:55→17:14)
[2016-09-02] MEDS: NS W/ 20 KCl/L 1,000 ML IV SCH (17:21)
[2016-09-02] MEDS: TPN W/ FAMOTIDINE 1 EA BAG IV SCH (19:55)
[2016-09-03] MEDS: PIPERACILLIN SODIUM/TAZOBACTAM 3.375 GM in D5W 50 ML IV SCH ×2 (00:22→05:00)
[2016-09-03] MEDS: KETOROLAC 15 MG/1 ML SDV IVP SCH (00:22)
[2016-09-03] MEDS ORDERED: HYDROCODONE/APAP 5/325 TAB PO PRN (09:03)
--- NOTE | 2016-09-03 09:05 | SOAPPROG ---
SOAP Progress Note Assessment/Plan: Assessment: Plan: 08/24/16 10:02 Wound infection. Lower aspect opened, irrigated, packed. Transition to po abx and pain meds. Wound care. 08/26/16 08:33 08/27/16 09:33 08/28/16 11:36 08/29/16 11:14 08/30/16 09:17 08/31/16 10:39 09/01/16 10:24 09/02/16 10:31 09/03/16 09:04 Subjective: Patient with 2 BM's today. Oliverio po without difficulty. Ambulating. Objective: Vital Signs Temp Pulse Resp BP Pulse Ox 37.7 C 83 18 115/65 95 09/03/16 08:00 09/03/16 08:00 09/03/16 08:00 09/03/16 08:00 09/03/16 08:00 Microbiology 08/26/16 17:33 Gram Stain - Final Peritoneal Fluid - Eswab Anaerobic Culture - Final Laboratory Results 08/30/16 04:10 09/02/16 03:35 09/02/16 09/03/16 09/04/16 05:59 05:59 06:59 Intake Total 4560 2124 Output Total 1300 Balance 4560 824 PT 15.3 SEC (12.0-15.0) H 08/30/16 04:30 INR 1.21 (0.83-1.16) H 08/30/16 04:30 Alert, NAD RRR Abd sl distended. Some serous drainage from lower aspect of incision with mild erythema. ICD10 Worksheet Patient Problems: Problems Problem Status Onset Colon adenoma Acute
[2016-09-03] MEDS: ENOXAPARIN 40 MG/0.4 ML SYR SC SCH (09:13)
[2016-09-03] MEDS: AMOXICILLIN/CLAVULANATE POT 875/125 MG TAB PO SCH ×2 (09:13→21:13)
[2016-09-03] MEDS: IBUPROFEN 200 MG TAB PO PRN ×2 (16:01→21:54)
[2016-09-03] MEDS: ACETAMINOPHEN 500 MG TAB PO PRN (17:55)
[2016-09-04] MEDS: ACETAMINOPHEN 500 MG TAB PO PRN (00:29)
--- NOTE | 2016-09-04 08:42 | SOAPPROG ---
SOAP Progress Note Assessment/Plan: Assessment: Plan: 08/24/16 10:02 Markedly improved. Discussed dressing changes. Patient otherwise doing well, plan for d/c home. Signs/symptoms of concern discussed, questions answered. 08/26/16 08:33 08/27/16 09:33 08/28/16 11:36 08/29/16 11:14 08/30/16 09:17 08/31/16 10:39 09/01/16 10:24 09/02/16 10:31 09/03/16 09:04 09/04/16 08:41 Subjective: Patient feels better, bowels functioning well. Oliverio po. Objective: Vital Signs Temp Pulse Resp BP Pulse Ox 36.9 C 76 16 124/80 H 94 09/04/16 04:00 09/04/16 04:00 09/04/16 04:00 09/04/16 04:00 09/04/16 04:00 Laboratory Results 08/30/16 04:10 09/02/16 03:35 09/03/16 09/04/16 09/05/16 04:59 05:59 05:59 Intake Total Output Total Balance PT 15.3 SEC (12.0-15.0) H 08/30/16 04:30 INR 1.21 (0.83-1.16) H 08/30/16 04:30 Alert, NAD RRR Abd soft, NTTP Inc without erythema. Lower inc with small amount of exudate, some granulation. ICD10 Worksheet Patient Problems: Problems Problem Status Onset Colon adenoma Acute
--- NOTE | 2016-09-04 08:48 | PDIAF ---
- Diagnosis Diagnosis: Wound infection Code Status: Full Code - Medication Management Discharge Medications: Refer to the Discharge Home Medication list for PRN reason. - Orders Services needed: Home [facility] Care Face to Face: I certify that this patient was under my care and that I had the required [id number] encounter meeting the encounter requirements on the discharge day. My findings support the fact that the patient is homebound as defined in CMS Chapter 7 Medicare Benefits Manual 30.1.1, The condition of the patient is such that there exists a normal inability to leave home and consequently, leaving home would require a considerable and taxing effort. Diet Recommendation: no restrictions on diet Wound Care Instructions: Wet to dry dressing changes BID - Follow Up Care Current Providers and Referrals: Maryuri Fung MD [Primary Care Provider] -
[2016-09-04] MEDS: AMOXICILLIN/CLAVULANATE POT 875/125 MG TAB PO SCH (09:00)
[2016-09-04] MEDS: IBUPROFEN 200 MG TAB PO PRN (09:01)
[2016-09-04] MEDS: ENOXAPARIN 40 MG/0.4 ML SYR SC SCH (09:03)
[2016-09-04 10:35] VITALS: BP 104/50; PULSE 75; RESP 22; TEMP 98.5; O2SAT 97
== END 2016-09-04 12:48 | disposition home or self-care (01) | DRG 329 ==
LOC: FSGY 08:49 → F3E 12:12
PROVIDERS: ADMIT Surgery; ATTEND Surgery
PROC: 0DB Gastrointestinal System, Excision (ICD-10-PCS; principal; 2016-08-23 10:14)
PROC: 0DQF4ZZ Repair Right Large Intestine, Percutaneous Endoscopic Approach (ICD-10-PCS; 2016-08-26)
PROC: 02HV33Z Insertion of Infusion Device into Superior Vena Cava, Percutaneous Approach (ICD-10-PCS; 2016-08-27)
PROC: 0DQF0ZZ Repair Right Large Intestine, Open Approach (ICD-10-PCS; 2016-08-31)
DX: D12.0 Benign neoplasm of cecum (principal); K63.1 Perforation of intestine (nontraumatic); K65.8 Other peritonitis; J84.9 Interstitial pulmonary disease, unspecified; M06.9 Rheumatoid arthritis, unspecified
CPT/HCPCS: 97161-GP; 97165-GO; C1751; J0697; J1100; J1170; J1650; J1815; J1885; J2001; J2250; J2270; J2405; J2543; J2550; J2704; J2765; J3010; P9041; Q9967

== ENCOUNTER 2016-09-08 13:23 | Inpatient (IN) | payer OTHER ==
--- NOTE | 2016-09-08 14:20 | EDPHY ---
H & P Stated Complaint: SURGERY LAST MON, HAS DRAIN IN PLACE, BUT "LEAKING CUPS" - Personal History LMP (Females 10-55): Post Menopausal Current Tetanus/Diphtheria Vaccine: Unsure Current Tetanus Diphtheria and Acellular Pertussis (TDAP): Unsure - Medical/Surgical History Hx Asthma: No Hx Chronic Respiratory Disease: Yes Hx Diabetes: No Hx Cardiac Disease: No Hx Renal Disease: No Hx Cirrhosis: No Hx Alcoholism: No Hx HIV/AIDS: No Hx Splenectomy or Spleen Trauma: No Other PMH: RA, joint surgeries, interstitial lung disease, pericarditis, PERFORATED BOWEL, PARTIAL COLECTOMEY - Social History Smoking Status: Never smoked Time Seen by Provider: 09/08/16 14:02 HPI/ROS: CHIEF COMPLAINT: Drainage from surgical site. HISTORY OF PRESENT ILLNESS: The patient is a 56 year old female s/p polyp removal of cecum and bowel resection who presents with drainage from surgical site. The patient had a bowel resection 08/23, complicated by a bowel perforation. Perforation was repaired laparoscopically on 08/26/16. However, patient required open abdominal surgery several days later due to concerns regarding continued bowel leakage. Patient was discharged home 4 days ago. She was seen by her surgeon, Dr. Verdin, 2 days ago. Since being discharged the patient has continued to have fevers. Her midline incision had a local wound infection and the patient is currently taking Augmentin. Patient's lower incision/prior drain incision in the lower abdomen is continue to lose serous fluid. Since last night, patient and her family report increase in the drainage , significant drainage when standing up, or with movement, and a change in the drainage color to brown with a purulent smell. She has intermittently had fevers since being discharged 4 days ago. Fever yesterday of 101.4, today 100.9. She feels short of breath with general malaise. She saw Dr. Verdin, 2 day ago, midline incision was healing and the infection was improving. No chest pain, palpitations, vomiting, diarrhea, urinary complaints, headache, lightheadedness. REVIEW OF SYSTEMS: Aside from elements discussed in the HPI, a comprehensive 10-point review of systems was reviewed and is negative. PAST MEDICAL HISTORY: Interstitial lung disease. Perforated bowel. Bowel resection. SOCIAL HISTORY: . VITAL SIGNS: Reviewed by me GENERAL: Ill appearing, thin female. HEENT: Atraumatic. Eyes: No icterus, no injection. Mouth: dry lips, slightly moist mucous membranes. No erythema or lesions. Neck: supple with no adenopathy. LUNGS: Clear to auscultation bilaterally, crackles bilaterally. CARDIAC: Tachycardic, flow systolic murmur. ABDOMEN: Slightly distended. Midline scar with packing. No surrounding erythema. Lower abdominal scar with foul smelling drainage. Significant amount of drainage when sitting up. Abdomen soft. Mild diffuse tenderenss. BACK: No CVA tenderness. EXTREMITIES: No trauma. No edema. Range of motion is normal throughout. NEURO: Alert and oriented, grossly nonfocal. SKIN: Warm and dry, no rash. PSYCHIATRIC: Normal mentation, no agitation. Portions of this note were transcribed by a medical insurance coding specialist. I personally performed a history, physical exam, medical decision making, and confirmed accuracy of information the transcribed note. (Gris Hadley) Constitutional: Initial Vital Signs Temperature (C) 36.4 C 09/08/16 13:26 Heart Rate 107 H 09/08/16 13:26 Respiratory Rate 14 09/08/16 13:26 Blood Pressure 88/56 L 09/08/16 13:26 O2 Sat (%) 100 09/08/16 13:26 O2 Delivery Mode Room Air Allergies/Adverse Reactions: No Known Allergies Allergy (Verified 09/08/16 17:25) Home Medications: Medication Instructions Recorded Amoxicillin/Clavulanate Pot 875 mg PO BID 09/08/16 [Augmentin 875 MG TAB (*)] Ibuprofen [Motrin (*)] 400 mg PO Q6H 09/08/16 Medical Decision Making - Diagnostics Imaging: Study: CT of the abdomen Indication: Postsurgical abdominal pain Results: CT scan of the abdomen was obtained. The results of the study are: 1. High-grade small bowel obstruction. This patient would benefit from an NG tube. 2. Small residual left subphrenic abscess 3. Recurring right paracolic abscess and possibly pelvic abscess. 4. Improved lung bases. 5. Persistent pericardial effusion. The study was read by the radiologist, Dr. Parviz Kong. I viewed the images myself on the PACS system. (Yi Avila) ED Course/Re-evaluation: 2:35 p.m.: I consulted Dr. Verdin who requests CT with oral contrast. Patient is receiving IV fluids. Patient's care was assumed by Dr. Avila at 3:00 p.m.. We are awaiting the patient's CT. Of note the patient has platelets of 1019[place] [address], H&H of 9 and 27. Zosyn 4.5g administered for intraabdominal abscess coverage. Lactic acid 1.1. Remainder of electrolytes largely unremarkable. Anticipate admission to Dr. Verdin service. (Gris Hadley) 1500: Patient care was transferred to sc by Dr. Hadley at change of shift to check the CT scan results. The plan is for her to be admitted to Dr. Verdin after the CT scan. CT scan results discussed with the patient and her . I discussed CT scan with Dr. Verdin. He requests abscess drainage by interventional radiology. The patient was admitted to Dr. Verdin. (Yi Avila) Differential Diagnosis: Differential diagnoses for the patient's symptom complex was considered including but not limited to intra-abdominal abscess, wound dehiscence, perforated bowel, fever, sepsis. (Gris Hadley) - Data Points Laboratory Results: Laboratory Results 09/08/16 13:55 09/08/16 13:55 09/08/16 09/08/16 09/08/16 14:57 13:55 13:55 WBC 19.82 10^3/uL H 10^3/uL (3.80-9.50) RBC 3.90 10^6/uL L 10^6/uL (4.18-5.33) Hgb 9.2 g/dL L g/dL (12.6-16.3) Hct 28.0 % L % (38.0-47.0) MCV 71.8 fL L fL (81.5-99.8) MCH 23.6 pg L pg (27.9-34.1) MCHC 32.9 g/dL g/dL (32.4-36.7) RDW 15.3 % H % (11.5-15.2) Plt Count 1019 10^3/uL H* 10^3/uL (150-400) MPV 10.3 fL fL (8.7-11.7) Neut % (Auto) 89.2 % H % (39.3-74.2) Lymph % (Auto) 5.4 % L % (15.0-45.0) Tripp % (Auto) 4.2 % L % (4.5-13.0) Eos % (Auto) 0.0 % L % (0.6-7.6) Baso % (Auto) 0.2 % L % (0.3-1.7) Nucleat RBC Rel Count 0.0 % % (0.0-0.2) Absolute Neuts (auto) 17.68 10^3/uL H 10^3/uL (1.70-6.50) Absolute Lymphs (auto) 1.08 10^3/uL 10^3/uL (1.00-3.00) Absolute Monos (auto) 0.83 10^3/uL H 10^3/uL (0.30-0.80) Absolute Eos (auto) 0.00 10^3/uL L 10^3/uL (0.03-0.40) Absolute Basos (auto) 0.03 10^3/uL 10^3/uL (0.02-0.10) Absolute Nucleated RBC 0.00 10^3/uL 10^3/uL (0-0.01) Immature Gran % 1.0 % % (0.0-1.1) Immature Gran # 0.20 10^3/uL H 10^3/uL (0.00-0.10) Platelet Estimate INCREASED H (ADEQ) Smear Review By hCris SINGH MD [facility] Lactic Acid 1.1 mmol/L mmol/L (0.7-2.1) Sodium 135 mEq/L mEq/L (134-144) Potassium 4.7 mEq/L mEq/L (3.5-5.2) Chloride 99 mEq/L mEq/L (97-110) Carbon Dioxide 23 mEq/l mEq/l (22-31) Anion Gap 13 mEq/L mEq/L (8-16) BUN 15 mg/dL mg/dL (7-23) Creatinine 0.5 mg/dL L mg/dL (0.6-1.0) Estimated GFR > 60 Glucose 95 mg/dL mg/dL (70-100) Calcium 8.2 mg/dL L mg/dL (8.5-10.4) Total Bilirubin 0.9 mg/dL mg/dL (0.1-1.4) Medications Given: Discontinued Medications Diatrizoate Meglum/Diatrizoate Sod (Gastroview 66-10 Soln) 30 ml PO EDNOW ONE Stop: 09/08/16 14:50 Last Admin: 09/08/16 15:40 Dose: 30 ml Sodium Chloride (Ns) 1,000 mls @ 0 mls/hr IV ONCE ONE PRN Reason: Wide Open Stop: 09/08/16 14:34 Last Admin: 09/08/16 15:30 Dose: 1,000 mls Piperacillin/Tazobactam/Dextrose (Zosyn (Premix)) 100 mls @ 200 mls/hr IV ONCE ONE PRN Reason: Protocol Stop: 09/08/16 15:45 Last Admin: 09/08/16 16:27 Dose: 100 mls Departure - Departure Disposition: [facility] Acute Condition: Serious Report Scribed for: Gris Hadley Report Scribed by: Leonarda Garcia Date of Report: 09/08/16 Time of Report: 14:40
[2016-09-08] MEDS ORDERED: NS 1,000 ML IV ONE ×2 (14:33→18:29)
[2016-09-08 14:43] LABS: ADD DIFF? NO; ADD MORPH? NO; ADD SCAN? NO; ATYPICAL LYMPHOCYTE FLAG 10 (0-99); FRAGMENT RBC FLAG 30 (0-99); HEMOGLOBIN 9.2 g/dL (12.6-16.3); LEFT SHIFT FLG 60 (0-99); LIPEMIA HEMOLYSIS FLAG 80 (0-99); MEAN CELL HEMOGLOBIN 23.6 pg (27.9-34.1); MEAN CELL HEMOGLOBIN CONCENTR. 32.9 g/dL (32.4-36.7); MEAN CELL VOLUME 71.8 fL (81.5-99.8); MEAN PLATELET VOLUME 10.3 fL (8.7-11.7); PLATELET CLUMPS FLAG 0 (0-99); RED CELL DISTRIBUTION WIDTH 15.3 % (11.5-15.2)
[2016-09-08 14:46] LABS: ANION GAP 13 mEq/L (8-16); BILIRUBIN,TOTAL 0.9 mg/dL (0.1-1.4); CALCIUM 8.2 mg/dL (8.5-10.4); CARBON DIOXIDE 23 mEq/l (22-31); CHLORIDE 99 mEq/L (97-110); CREATININE 0.5 mg/dL (0.6-1.0); GLOMERULAR FILTRATION RATE > 60; GLUCOSE 95 mg/dL (70-100); POTASSIUM 4.7 mEq/L (3.5-5.2); SODIUM 135 mEq/L (134-144)
[2016-09-08 14:49] LABS: PLATELET COUNT 1019 10^3/uL (150-400)
[2016-09-08] MEDS ORDERED: GASTROVIEW 30 ML UNIT PO ONE (14:49)
[2016-09-08] MEDS ORDERED: PIPERACILLIN/TAZO 4.5 GM/DEX 100 ML IV ONE (15:16)
[2016-09-08 15:24] LABS: PLATELET ESTIMATE INCREASED (ADEQ)
[2016-09-08] MEDS ORDERED: IOPAMIDOL (ISOVUE-300) 100 ML BTL IV ONE (16:38)
[2016-09-08] MEDS ORDERED: fentaNYL 100 MCG/2 ML INJ ONE (18:38)
[2016-09-08] MEDS ORDERED: MIDAZOLAM 2 MG/2 ML VIAL ONE (18:46)
[2016-09-08] MEDS ORDERED: HYDROmorphONE/DILAUDID 1 MG/ML SYR IVP PRN (19:25)
[2016-09-08] MEDS ORDERED: HYDROCODONE/APAP 5/325 TAB PO PRN (19:25)
[2016-09-08] MEDS ORDERED: ONDANSETRON 4 MG/2 ML VIAL IVP PRN (19:25)
[2016-09-08] MEDS ORDERED: LIDOCAINE 2% JELLY 20 ML (UROJECT) ONE (19:31)
--- NOTE | 2016-09-08 19:49 | POSTOPPROG ---
Post Op Note Date of Operation: 09/08/16 Surgeon: Marcus Deng Anesthesia: IV Sedation Pre-op Diagnosis: Abdominal abscess Post-op Diagnosis: same Indication: New abdominopelvic fluid collection Procedure: CT guided percutaneous abscess drainage Findings: 85 ml malodorous thin brown fluid evacuated. Inf/Abcess present in the surg proc area at time of surgery?: Yes Depth: Organ Space EBL: Minimal Complications: 0 Drains: Other (12F pigtail drainage tube.) Specimen(s): 10 ml sample sent to lab for aerobic, anaerobic, and fungal cultures.
[2016-09-08] MEDS ORDERED: ZOLPIDEM TARTRATE 5 MG TAB PO PRN (20:27)
[2016-09-08] MEDS: LR 1,000 ML IV SCH (20:30)
--- NOTE | 2016-09-08 21:05 | GHP ---
[f rep st] HISTORY AND PHYSICAL DATE OF ADMISSION: 09/08/2016 HISTORY OF PRESENT ILLNESS: This is a 56-year-old female with a history of fever and tachycardia. On 08/23/2016 patient underwent laparoscopic right colectomy for adenoma. The patient had a complicated hospital course with perforation, laparoscopic repair , and a 2nd exploratory surgery with revision right colectomy. This last was performed on 08/31/2016. The patient improved after this, although she had developed a wound infection. The patient had been discharged home and initially did well; however, she developed increasing tachycardia and fever. Patient also had an episode of nausea, with no vomiting the night prior to admission, noting a significant amount of drainage from her lower incision. The patient presented to the emergency department. There she underwent a CT scan which demonstrated a large fluid collection in the right gutter as well as in the pelvis. The patient has just returned from Interventional Radiology drainage of that collection. The patient states she feels slightly improved. She denies nausea currently. The patient did have a bowel movement yesterday. She has been eating up until last night. PAST MEDICAL HISTORY: Significant for rheumatoid arthritis, interstitial lung disease. PAST SURGICAL HISTORY: Significant for the above as well as orthopedic procedures. MEDICATIONS: Include: 1. Augmentin. ALLERGIES: No known drug allergies. SOCIAL HISTORY: Patient is a nonsmoker. PHYSICAL EXAMINATION: VITAL SIGNS: Temperature is 37.2, pulse 95, respirations 16, blood pressure is 108/69. GENERAL: She is an alert female in no acute distress. HEENT: Her sclerae are anicteric. There is no evidence of jugular venous distention. HEART: Tachycardic but regular. LUNGS: Slightly decreased breath sounds at bases. ABDOMEN: Slightly distended. It is mildly to moderately tender to palpation over the right midabdomen and over the drain insertion site. There is minimal guarding and no rebound identified. JENNY drain is draining seropurulent fluid. Of note, an NG tube is in place. DIAGNOSTIC DATA: The patient has a CBC with a white count of 19.8, hemoglobin 9.2, hematocrit of 28 and platelets of 1019. Chemistries demonstrate sodium 135 , potassium 4.7, chloride 99, CO2 23, BUN 15, creatinine 0.5 and glucose of 95. Diagnostic imaging as above. Lactic acid is 1.1. ASSESSMENT/PLAN: A 56-year-old female with intraabdominal abscess status post revision right colectomy. The patient also has a wound infection and a partial small-bowel obstruction noted on CT scan. Options have been discussed at length with the patient and her family. It is uncertain whether this represents a true abscess or further compromise of the new anastomosis. We will continue JENNY drainage, NG tube suction, n.p.o. status and IV fluids and antibiotics at this time. If her drainage decreases as expected, we will plan to transition to oral antibiotics. If it persists, we will assess for persistent leak. Signs and symptoms of concern were discussed. Their questions were answered. /[id number]/MODL MTDD
[2016-09-09] MEDS: PIPERACILLIN/TAZO 3.375 GM/DEX 50 ML IV SCH ×4 (00:59→18:38)
[2016-09-09 05:12] LABS: HEMATOCRIT 20.5 % (38.0-47.0); LIPEMIA HEMOLYSIS FLAG 80 (0-99); MEAN CELL HEMOGLOBIN 24.2 pg (27.9-34.1); MEAN CELL HEMOGLOBIN CONCENTR. 33.2 g/dL (32.4-36.7); RED BLOOD CELL COUNT 2.81 10^6/uL (4.18-5.33); RED CELL DISTRIBUTION WIDTH 15.1 % (11.5-15.2)
[2016-09-09 05:19] LABS: HEMOGLOBIN 6.8 g/dL (12.6-16.3); PLATELET COUNT 839 10^3/uL (150-400)
[2016-09-09 05:25] LABS: ALANINE AMINOTRANSFERASE 39 IU/L (9-52); ALKALINE PHOSPHATASE 114 IU/L (38-126); ANION GAP 11 mEq/L (8-16); ASPARTATE AMINOTRANSFERASE 20 IU/L (14-46); BILIRUBIN,TOTAL 0.6 mg/dL (0.1-1.4); CALCIUM 7.6 mg/dL (8.5-10.4); CARBON DIOXIDE 20 mEq/l (22-31); CHLORIDE 106 mEq/L (97-110); CREATININE 0.6 mg/dL (0.6-1.0); GLOMERULAR FILTRATION RATE > 60; GLUCOSE 68 mg/dL (70-100); POTASSIUM 4.1 mEq/L (3.5-5.2); SODIUM 137 mEq/L (134-144); TOTAL PROTEIN 4.5 g/dL (6.3-8.2)
[2016-09-09 06:01] LABS: PLATELET ESTIMATE INCREASED (ADEQ)
--- NOTE | 2016-09-09 09:44 | SOAPPROG ---
SOAP Progress Note Assessment/Plan: Assessment: Persistent drainage, tachycardia. Will check KUB to assess contrast. Discussed NGT; as it has not drained at all it is reasonable to remove it. Anemia--options including transfusion and epo discussed, patient does not wish transfusion at this time. Also discussed second opinion and even consultation with colorectal, she will consider this. Possibility of recurrent leak discussed along with treatment strategies including TPN/abx vs surgery with ileostomy. Questions answered. Plan: 09/09/16 09:41 Subjective: Patient feels better but still with low-grade temps. Denies abd pain, N/V. Ambulating. Objective: Vital Signs Temp Pulse Resp BP Pulse Ox 38.2 C 103 H 20 108/57 L 93 09/09/16 07:30 09/09/16 07:30 09/09/16 07:30 09/09/16 07:30 09/09/16 07:30 Microbiology 09/08/16 19:35 Gram Stain - Final Abdomen - Aspirate Laboratory Results 09/09/16 03:50 09/09/16 03:50 09/08/16 09/09/16 09/10/16 05:59 05:59 05:59 Intake Total 2075 Output Total 410 60 Balance 1665 -60 Alert, NAD Tachycardic but regular Abd soft, NTTP Inc without erythema JENNY seropurulent, no definite gastrograffin noted. ICD10 Worksheet Patient Problems: Problems Problem Status Onset Colon adenoma Acute
[2016-09-09] MEDS: LR 1,000 ML IV SCH (10:07)
[2016-09-09] MEDS: EPOETIN ALFA 2,000 UNIT/ML VIAL IVP SCH (15:06)
[2016-09-09 20:48] LABS: COLOR YELLOW; LEUKOCYTE ESTERASE,URINE TRACE (NEGATIVE); NITRITE,URINE NEGATIVE (NEGATIVE)
[2016-09-09 21:01] LABS: MUCUS TRACE /lpf (NONE-1+)
[2016-09-10] MEDS: PIPERACILLIN/TAZO 3.375 GM/DEX 50 ML IV SCH ×4 (00:05→18:50)
[2016-09-10] MEDS ORDERED: LORazepam 0.5 MG TAB PO PRN (09:37)
--- NOTE | 2016-09-10 09:41 | SOAPPROG ---
SOAP Progress Note Assessment/Plan: Assessment: Patient with persistent drainage. Options discussed again; patient wishes to defer CT or SBFT at this time. Plan U/S to assess for further collections, though patient understands sensitivity not as high. Follow cultures and cont abx. Plan: 09/09/16 09:41 09/10/16 09:38 Subjective: Patient c/o some anxiety, denies abd pain. No N/V. Oliverio some clears. + BM, normal. Ambulating. Objective: Vital Signs Temp Pulse Resp BP Pulse Ox 38.8 C H 99 16 126/69 H 93 09/10/16 07:23 09/10/16 07:23 09/10/16 07:23 09/10/16 07:23 09/10/16 07:23 Microbiology 09/08/16 19:35 Gram Stain - Final Abdomen - Aspirate Laboratory Results 09/09/16 03:50 09/09/16 03:50 09/09/16 09/10/16 09/11/16 05:59 05:59 05:59 Intake Total 2075 1425 Output Total 410 1503 Balance 1665 -78 Alert, NAD Sl tachy but reg Abd soft, NTTP Inc without erythema, good granulation JENNY thinning seropurulent fluid. ICD10 Worksheet Patient Problems: Problems Problem Status Onset Colon adenoma Acute
[2016-09-10] MEDS: LR 1,000 ML IV SCH (11:05)
[2016-09-10] MEDS: EPOETIN ALFA 2,000 UNIT/ML VIAL IVP SCH (14:39)
[2016-09-11] MEDS: PIPERACILLIN/TAZO 3.375 GM/DEX 50 ML IV SCH ×2 (07:34)
[2016-09-11] MEDS ORDERED: ERTAPENEM 1 GM in NS 100 ML IV SCH (09:30)
--- NOTE | 2016-09-11 09:31 | SOAPPROG ---
SOAP Progress Note Assessment/Plan: Assessment: Improving. Change abx for cx results. Check H&H, possibility of transfusion reviewed. Full liquid diet. Ambulate, IS, start lovenox. D/w patient and family at length, questions answered. Plan: 09/09/16 09:41 09/10/16 09:38 09/11/16 09:28 Subjective: Patient feels better, denies abd pain. No SOB, CP. Ambulating, no drainage from lower incision site. +BM, joi po. Objective: Vital Signs Temp Pulse Resp BP Pulse Ox 37.6 C 94 17 119/74 97 09/11/16 08:00 09/11/16 09:18 09/11/16 08:00 09/11/16 08:00 09/11/16 09:18 Microbiology 09/08/16 19:35 Gram Stain - Final Abdomen - Aspirate Laboratory Results 09/09/16 03:50 09/09/16 03:50 09/10/16 09/11/16 09/12/16 05:59 05:59 05:59 Intake Total 1425 2793 1318 Output Total 1503 2970 Balance -78 -177 1318 Alert, NAD Tachy but reg Abd soft, NTTP Inc without erythema JENNY with serous/serosang fluid. ICD10 Worksheet Patient Problems: Problems Problem Status Onset Colon adenoma Acute
[2016-09-11] MEDS: ENOXAPARIN 40 MG/0.4 ML SYR SC SCH (10:17)
[2016-09-11 10:21] LABS: HEMATOCRIT 22.4 % (38.0-47.0); HEMOGLOBIN 7.5 g/dL (12.6-16.3)
[2016-09-11] MEDS ORDERED: PIPERACILLIN SODIUM/TAZOBACTAM 3.375 GM in D5W 50 ML IV SCH (12:00)
[2016-09-11] MEDS: LR 1,000 ML IV SCH (13:00)
[2016-09-11] MEDS: EPOETIN ALFA 2,000 UNIT/ML VIAL IVP SCH (13:45)
[2016-09-11] MEDS: CEFEPIME HCL 1 GM in D5W 50 ML IV SCH ×2 (13:45→22:56)
[2016-09-12] MEDS: CEFEPIME HCL 1 GM in D5W 50 ML IV SCH ×3 (06:04→21:56)
[2016-09-12] MEDS: LR 1,000 ML IV SCH (06:04)
--- NOTE | 2016-09-12 08:29 | SOAPPROG ---
SOAP Progress Note Assessment/Plan: Assessment: Improving. Advance diet, ambulate, IS. Cont JENNY and abx. Plan for home care on d/c. Plan: 09/09/16 09:41 09/10/16 09:38 09/11/16 09:28 09/12/16 08:28 Subjective: Patient feels better, joi po, denies SOB/CP. + BM. Objective: Vital Signs Temp Pulse Resp BP Pulse Ox 37.0 C 86 16 112/70 96 09/12/16 08:00 09/12/16 08:00 09/12/16 08:00 09/12/16 08:00 09/12/16 08:00 Microbiology 09/08/16 19:35 Gram Stain - Final Abdomen - Aspirate Laboratory Results 09/11/16 09:52 09/09/16 03:50 09/11/16 09/12/16 09/13/16 05:59 05:59 05:59 Intake Total 2793 4474 Output Total 2970 2350 Balance -177 2124 Alert, NAD RRR Abd soft, NTTP Inc without erythema JENNY serous/seropurulent. ICD10 Worksheet Patient Problems: Problems Problem Status Onset Colon adenoma Acute
[2016-09-12] MEDS: ENOXAPARIN 40 MG/0.4 ML SYR SC SCH (11:30)
[2016-09-12] MEDS: EPOETIN ALFA 2,000 UNIT/ML VIAL IVP SCH (14:50)
[2016-09-12] MEDS ORDERED: IBUPROFEN 600 MG TAB PO ONE (23:45)
[2016-09-13] MEDS: CEFEPIME HCL 1 GM in D5W 50 ML IV SCH (05:50)
--- NOTE | 2016-09-13 10:51 | SOAPPROG ---
SOAP Progress Note Assessment/Plan: Assessment: Improving. po abx. Check echo for chest tightness. Also check U/S for abd fluid. Discussed possibility of CT, they wish to defer at this time. Repeat H& H and continue epo. Plan: 09/09/16 09:41 09/10/16 09:38 09/11/16 09:28 09/12/16 08:28 09/13/16 10:46 Subjective: Patient with persistent chest tightness, similar to prior episodes of pericarditis. Abd feels better, tolerating po without difficulty. +BM. Has noted some increased clear/yellow drainage from lower inc. Objective: Vital Signs Temp Pulse Resp BP Pulse Ox 36.7 C 83 17 116/76 93 09/13/16 08:55 09/13/16 08:55 09/13/16 08:55 09/13/16 08:55 09/13/16 08:55 Microbiology 09/08/16 19:35 Gram Stain - Final Abdomen - Aspirate Laboratory Results 09/11/16 09:52 09/09/16 03:50 09/12/16 09/13/16 09/14/16 05:59 05:59 05:59 Intake Total 4474 2970 300 Output Total 2350 1035 10 Balance 2124 1935 290 Alert, NAD RRR Abd soft, NTTP Inc without erythema. JENNY with serous fluid. Lower inc site appears serous as well. ICD10 Worksheet Patient Problems: Problems Problem Status Onset Colon adenoma Acute
[2016-09-13] MEDS: ENOXAPARIN 40 MG/0.4 ML SYR SC SCH (12:50)
[2016-09-13 12:54] LABS: HEMATOCRIT 23.9 % (38.0-47.0); HEMOGLOBIN 7.5 g/dL (12.6-16.3)
--- NOTE | 2016-09-13 14:31 | CPEKG ---
Heart Rate: 94 RR Interval: 638 P-R Interval: 148 QRSD Interval: 68 QT Interval: 344 QTC Interval: 431 P [place]: 78 QRS [place]: 78 T Wave [place]: 67 EKG Severity - ABNORMAL ECG - EKG Impression: SINUS RHYTHM EKG Impression: LEFT ATRIAL ABNORMALITY EKG Impression: BORDERLINE T ABNORMALITIES, ANT-LAT LEADS Electronically Signed By: Jose Blanc 14-Sep-2016 14:16:08
[2016-09-13] MEDS: EPOETIN ALFA 2,000 UNIT/ML VIAL IVP SCH (15:26)
[2016-09-13] MEDS: metroNIDAZOLE 500 MG TAB PO SCH ×2 (15:26→21:43)
--- NOTE | 2016-09-13 17:18 | SOAPPROG ---
SOAP Progress Note Assessment/Plan: Assessment: Cardiology ([facility]) 1. Recurrent acute pericarditis. Symptoms of chest discomfort radiating to back similar to 2012 episode that was relieved by naproxen (caused gastritis) and then ibuprofen 800 mg bid. I did discuss additional use of colchicine with Dr. Castelan who would like to withhold if possible. 2. S/p right colectomy with complicated post-operative course. 3. Rheumatoid arthritis. Plan: 1. Start ibuprofen 600 mg tid with plans to taper as outpatient. 2. Start pantoprazole 40 mg once daily for PUD prophylaxis in the postop setting. 09/13/16 17:24 Subjective: Chest discomfort 2-3/10 with sharp component radiating to back. It was a 4 yesterday. Mild pleuritic and positional component as well. Objective: Vital Signs Temp Pulse Resp BP Pulse Ox 36.7 C 97 17 112/65 94 09/13/16 16:00 09/13/16 16:00 09/13/16 16:00 09/13/16 16:00 09/13/16 16:00 Microbiology 09/08/16 19:35 Gram Stain - Final Abdomen - Aspirate Laboratory Results 09/13/16 12:47 09/09/16 03:50 09/12/16 09/13/16 09/14/16 05:59 05:59 05:59 Intake Total 4474 2970 300 Output Total 2350 1035 120 Balance 2124 1935 180 Physical Exam - Physical Exam General Appearance: WD/WN, alert, thin Respiratory: chest non-tender, lungs clear, normal breath sounds Cardiac/Chest: normal peripheral pulses, regular rate, rhythm, tachycardia, friction rub (very slight) ICD10 Worksheet Patient Problems: Problems Problem Status Onset Colon adenoma Acute
--- NOTE | 2016-09-13 18:25 | ECHO ---
[id number] + + [phone] : : [place] [address] : : [phone] + + Adult Echocardiographic Report + ----+ :Name: DENISE FUNES LStudy Date: 09/13/2016 11:03 AM BP: 116/72 mmHg : : Hospital Admission Number: [id number] Location: 210: :: 1960 Gender: Female Height: 66 in : :Age: 56 yrs Race: WH Weight: 106 lb : :Reason For Study: r/o pericarditis : : BSA: 1.5 meters2 : :History: chest tighness; h/o pericarditis : + ----+ MMode/2D Measurements \T\ Calculations IVSd: 0.83 cm RVDd: 3.2 cm FS: 38.7 % Ao root diam: LVPWd: 0.90 cm LVIDd: 3.9 cm EDV(Teich): 2.4 cm LVIDs: 2.4 cm 66.2 ml LA dimension: ESV(Teich): 2.6 cm 20.0 ml EF(Teich): 69.8 % LVLd ap4: 8.1 cm SV(MOD-sp4): EDV(MOD-sp4): 67.0 ml 89.0 ml LVLs ap4: 6.5 cm ESV(MOD-sp4): 22.0 ml EF(MOD-sp4): 75.3 % Normal Measurement Values: + + :LVIDd (3.5-5.7cm) IVSd (0.6-1.1cm) LVPWd (0.6-1.1cm) Aortic Root (2.0-3.7cm)Left Atrium (1.5-4.0cm): :LV Vol(d) (76-115ml) LV Vol(s) (29-48ml) Ejec Fraction (50-65%)PV Patrick (0.6- 1.2m/s) TV Patrick (0.4-1.0m/s) : :MV E Patrick (0.8-1.0m/s)MV A Patrick (0.3-1.0m/s)LVOT Patrick (0.7-1.2m/s) Asc Ao Patrick ( 0.9-1.8m/s) : + + Doppler Measurements \T\ Calculations MV E max patrick: Ao V2 max: LV V1 max: PA V2 max: 93.2 cm/sec 153.4 cm/sec 133.9 cm/sec 107.2 cm/sec MV A max patrick: Ao max PG: LV V1 max PG: PA max P.4 cm/sec 9.4 mmHg 7.2 mmHg 4.6 mmHg MV E/A: 0.98 MV dec time: 0.23 sec TR max patrick: 176.5 cm/sec TR max P.5 mmHg RAP systole: 5.0 mmHg RVSP(TR): 17.5 mmHg Left Ventricle The left ventricle is normal in size and function. There is normal left ventricular wall thickness. Ejection Fraction = 70%. No regional wall motion abnormalities noted. Right Ventricle The right ventricle is normal in size and function. Atria The left atrial size is normal. Right atrial size is normal. Mitral Valve The mitral valve is normal in structure and function. There is no mitral valve stenosis. There is trace to mild mitral regurgitation. Tricuspid Valve The tricuspid valve is normal in structure and function. There is no tricuspid stenosis. There is trace to mild tricuspid regurgitation. Right ventricular systolic pressure is 18mmHg. Aortic Valve The aortic valve is trileaflet. There is no aortic stenosis. There is no aortic insufficiency. Pulmonic Valve The pulmonic valve is normal in structure and function. Trace pulmonic valvular regurgitation. Great Vessels The aortic root is normal size. Pericardium/Pleural There is a pericardial effusion. It is small in size around the RV free wall and small to moderate in size around the left ventricule. There is no echo evidence of tamponade. There is a small pleural effusion. Conclusion A two-dimensional transthoracic echocardiogram with M-mode and Doppler was performed. The left ventricle is normal in size and function. Ejection Fraction = 70%. There is trace to mild mitral regurgitation. There is trace to mild tricuspid regurgitation. Right ventricular systolic pressure is 18mmHg. Trace pulmonic valvular regurgitation. There is a pericardial effusion. It is small in size around the RV free wall and small to moderate in size around the left ventricule. There is no echo evidence of tamponade. There is a small pleural effusion. Final Reading Physician: Renetta Steven signed on 09/13/2016 06:24 PM Ordering Physician: DARCIE KHAN Performed By: Carmencita Whitehead
[2016-09-13] MEDS: IBUPROFEN 600 MG TAB PO SCH (21:42)
[2016-09-14] MEDS: metroNIDAZOLE 500 MG TAB PO SCH (05:55)
--- NOTE | 2016-09-14 08:56 | SOAPPROG ---
SOAP Progress Note Assessment/Plan: Assessment: Recurrent leak from right colectomy anastamosis. Options d/w patient and family at length. Rec CT initially, may require further surgery pending results. Addendum 11:30: CT shows large collection ant abdomen, prior drain in position. Another smaller collection is again seen near the spleen. D/w IR, plan for cath exchange to 16 F. D/w patient and family, if unsuccessful may require re- exploration. Again reviewed options of surgery including ileostomy. Second opinion offered again, questions answered. Plan: 09/09/16 09:41 09/10/16 09:38 09/11/16 09:28 09/12/16 08:28 09/13/16 10:46 09/14/16 08:51 09/14/16 11:25 Subjective: Patient with a large amount of drainage from the lower incision overnight, food particles noted. Patient denies increased abdominal pain, N/V. + BM. Objective: Vital Signs Temp Pulse Resp BP Pulse Ox 36.3 C 86 16 117/76 92 09/14/16 05:50 09/14/16 05:50 09/14/16 05:50 09/14/16 05:50 09/14/16 05:50 Microbiology 09/08/16 19:35 Gram Stain - Final Abdomen - Aspirate Laboratory Results 09/13/16 12:47 09/09/16 03:50 09/13/16 09/14/16 09/15/16 05:59 05:59 05:59 Intake Total 2970 1300 Output Total 1035 170 Balance 1935 1130 Alert, NAD RRR Abd soft, mild TTP lower abd. No rebound/guarding. JENNY with thicker yellow fluid Lower incision with thick yellow d/c, currently no particles noted. ICD10 Worksheet Patient Problems: Problems Problem Status Onset Colon adenoma Acute
[2016-09-14] MEDS ORDERED: LR 1,000 ML IV SCH (09:00)
[2016-09-14] MEDS ORDERED: IOPAMIDOL (ISOVUE-300) 100 ML BTL IV ONE ×2 (09:03→18:13)
[2016-09-14] MEDS: IBUPROFEN 600 MG TAB PO SCH ×2 (11:01→15:51)
[2016-09-14] MEDS: LR 1,000 ML IV SCH (11:01)
[2016-09-14] MEDS: PANTOPRAZOLE SODIUM 40 MG TAB PO SCH (11:02)
[2016-09-14] MEDS: ENOXAPARIN 40 MG/0.4 ML SYR SC SCH (11:06)
[2016-09-14] MEDS: CEFEPIME HCL 1 GM in D5W 50 ML IV SCH ×2 (13:58→23:02)
[2016-09-14] MEDS: EPOETIN ALFA 2,000 UNIT/ML VIAL IVP SCH (14:12)
[2016-09-14 14:43] LABS: INR 1.47 (0.83-1.16); PROTIME(PATIENT) 17.8 SEC (12.0-15.0)
[2016-09-14] MEDS ORDERED: fentaNYL 100 MCG/2 ML INJ ONE (17:06)
[2016-09-14] MEDS ORDERED: FLUMAZENIL 0.5 MG/5 ML MDV IVP ONE (17:06)
[2016-09-14] MEDS ORDERED: MIDAZOLAM 2 MG/2 ML VIAL ONE (17:06)
[2016-09-14] MEDS ORDERED: NALOXONE HCL 0.4 MG/ML INJ ONE (17:07)
--- NOTE | 2016-09-14 18:05 | POSTOPPROG ---
Post Op Note Date of Operation: 09/14/16 Surgeon: Tamia Miles Anesthesia: IV Sedation (fentanyl and versed) Pre-op Diagnosis: abd abscess Post-op Diagnosis: same Indication: current drain not draining Procedure: upsize drain and evacuation of abscess Findings: 360 cc of thick yellow material drained with large chuncks Inf/Abcess present in the surg proc area at time of surgery?: Yes Depth: Superfical (Skin SQ) EBL: Minimal Complications: None Drains: Other (16Fr ThalQuik)
[2016-09-14] MEDS: KETOROLAC 15 MG/1 ML SDV IVP SCH (21:52)
[2016-09-15] MEDS: CEFEPIME HCL 1 GM in D5W 50 ML IV SCH ×3 (05:40→22:00)
[2016-09-15] MEDS: KETOROLAC 15 MG/1 ML SDV IVP SCH ×3 (05:40→22:00)
[2016-09-15] MEDS: PANTOPRAZOLE SODIUM 40 MG TAB PO SCH (08:50)
[2016-09-15] MEDS: ENOXAPARIN 40 MG/0.4 ML SYR SC SCH (08:51)
--- NOTE | 2016-09-15 09:50 | SOAPPROG ---
SOAP Progress Note Assessment/Plan: Assessment: Stable. Options reviewed with patient and family. They wish to discuss it further, but she is inclined to undergo ileostomy placement with Dr. Ruiz as primary surgeon. Plan: 09/09/16 09:41 09/10/16 09:38 09/11/16 09:28 09/12/16 08:28 09/13/16 10:46 09/14/16 08:51 09/14/16 11:25 09/15/16 09:48 Subjective: Patient feels better, denies abd pain. No CP/SOB. Ambulating. Objective: Vital Signs Temp Pulse Resp BP Pulse Ox 36.9 C 83 16 123/66 H 94 09/15/16 08:41 09/15/16 08:41 09/15/16 08:41 09/15/16 08:41 09/15/16 08:41 Microbiology 09/08/16 19:35 Gram Stain - Final Abdomen - Aspirate Laboratory Results 09/13/16 12:47 09/09/16 03:50 09/14/16 09/15/16 09/16/16 05:59 05:59 05:59 Intake Total 1300 1200 Output Total 170 70 Balance 1130 1130 PT 17.8 SEC (12.0-15.0) H 09/14/16 14:20 INR 1.47 (0.83-1.16) H 09/14/16 14:20 Alert, NAD RRR Abd soft, NTTP Inc without erythema JENNY seropurulent. ICD10 Worksheet Patient Problems: Problems Problem Status Onset Colon adenoma Acute
[2016-09-15] MEDS: D5W 1/2 NS W/ 20 KCl/L 1,000 ML IV SCH (12:41)
[2016-09-15] MEDS: EPOETIN ALFA 2,000 UNIT/ML VIAL IVP SCH (14:20)
[2016-09-16] MEDS: KETOROLAC 15 MG/1 ML SDV IVP SCH ×3 (05:39→21:28)
[2016-09-16] MEDS: CEFEPIME HCL 1 GM in D5W 50 ML IV SCH ×3 (05:39→21:29)
[2016-09-16] MEDS: D5W 1/2 NS W/ 20 KCl/L 1,000 ML IV SCH ×2 (05:42→21:34)
--- NOTE | 2016-09-16 07:36 | PDCONSULT ---
Editor Managing Newspaper Note: I reviewed Adri's imaging and clinical course during her recent hospitlization : She has two fluid collections in the abdominal cavity. The largest is in the R abd and is drained with a perc cath. There is a second collection in the left subphrenic area suspicious for an abscess that is not drained. She is not currently septic and is resting comfortably this morning. Her abd is soft and non-tender other than around her drain. I recommended surgical drainage of both collections and removal of the percutaneous drain. I believe it is possible to capture the leak in the right abdomen and convert this to a fistula, which would be safer than resection with ileostomy/mucous fistula. I would attempt to place a drain in the left subphrenic space unless IR can safely drain this collection. I will request an ID consult. Tin Ruiz MD, FACS
[2016-09-16] MEDS: ENOXAPARIN 40 MG/0.4 ML SYR SC SCH (07:51)
[2016-09-16] MEDS: PANTOPRAZOLE SODIUM 40 MG TAB PO SCH (08:56)
--- NOTE | 2016-09-16 09:20 | SOAPPROG ---
SOAP Progress Note Assessment/Plan: Assessment: Stable, planning on exploration today with drainage of fluid collections and possible ileostomy. Questions answered. Plan: 09/09/16 09:41 09/10/16 09:38 09/11/16 09:28 09/12/16 08:28 09/13/16 10:46 09/14/16 08:51 09/14/16 11:25 09/15/16 09:48 09/16/16 09:18 Subjective: Patient without complaints, minimal abdominal pain. Ambulating, voiding. Objective: Vital Signs Temp Pulse Resp BP Pulse Ox 36.4 C 87 18 125/80 H 93 09/16/16 07:40 09/16/16 07:40 09/16/16 07:40 09/16/16 07:40 09/16/16 07:40 Microbiology 09/08/16 19:35 Gram Stain - Final Abdomen - Aspirate Anaerobic Culture - Final Escherichia Coli Pseudomonas Aeruginosa 09/15/16 09/16/16 09/17/16 05:59 05:59 05:59 Intake Total 1200 1945 Output Total 70 155 Balance 1130 1790 PT 17.8 SEC (12.0-15.0) H 09/14/16 14:20 INR 1.47 (0.83-1.16) H 09/14/16 14:20 Alert, NAD RRR JENNY seropurulent ICD10 Worksheet Patient Problems: Problems Problem Status Onset Colon adenoma Acute
[2016-09-16 09:24] LABS: % IMMATURE GRANULYOCYTES 1.3 % (0.0-1.1); ABSOLUTE IMMATURE GRANULOCYTES 0.06 10^3/uL (0.00-0.10); ABSOLUTE NRBC COUNT 0.02 10^3/uL (0-0.01); ADD DIFF? NO; ADD MORPH? NO; ADD SCAN? YES; FRAGMENT RBC FLAG 40 (0-99); HEMATOCRIT 27.7 % (38.0-47.0); LEFT SHIFT FLG 20 (0-99); LIPEMIA HEMOLYSIS FLAG 80 (0-99); MEAN CELL HEMOGLOBIN 23.2 pg (27.9-34.1); MEAN CELL HEMOGLOBIN CONCENTR. 32.5 g/dL (32.4-36.7); MEAN CELL VOLUME 71.4 fL (81.5-99.8); MEAN PLATELET VOLUME 9.3 fL (8.7-11.7); NRBC-AUTO% 0.4 % (0.0-0.2); PLATELET CLUMPS FLAG 0 (0-99); PLATELET COUNT 545 10^3/uL (150-400); RED BLOOD CELL COUNT 3.88 10^6/uL (4.18-5.33); RED CELL DISTRIBUTION WIDTH 15.9 % (11.5-15.2)
[2016-09-16 09:33] LABS: ATYPICAL LYMPHOCYTE FLAG 120 (0-99)
[2016-09-16 09:39] LABS: ALANINE AMINOTRANSFERASE 26 IU/L (9-52); ALBUMIN 2.4 g/dL (3.5-5.0); ALKALINE PHOSPHATASE 74 IU/L (38-126); ANION GAP 11 mEq/L (8-16); ASPARTATE AMINOTRANSFERASE 17 IU/L (14-46); BILIRUBIN,TOTAL 0.5 mg/dL (0.1-1.4); CALCIUM 7.9 mg/dL (8.5-10.4); CARBON DIOXIDE 26 mEq/l (22-31); CHLORIDE 97 mEq/L (97-110); CREATININE 0.4 mg/dL (0.6-1.0); GLOMERULAR FILTRATION RATE > 60; GLUCOSE 99 mg/dL (70-100); POTASSIUM 3.6 mEq/L (3.5-5.2); SODIUM 134 mEq/L (134-144); TOTAL PROTEIN 5.5 g/dL (6.3-8.2)
[2016-09-16 10:04] LABS: SCAN NEGATIVE
[2016-09-16] MEDS ORDERED: BUPIVACAINE 0.5% 30 ML SDV ONE (10:27)
--- NOTE | 2016-09-16 13:43 | GCON ---
[f rep st] CONSULTATION INFECTIOUS DISEASE CONSULTATION. DATE OF CONSULTATION: 09/16/2016 REFERRING PHYSICIAN: Vipul Ruiz MD REASON FOR CONSULTATION: Intraabdominal infection. HPI: A 56-year-old woman with a past medical history of rheumatoid arthritis and interstitial lung disease, but not on biologics, who recently underwent a laparoscopic right colectomy for adenoma on 08/23/2016. Her course was complicated by perforation and initially underwent laparoscopic repair, but ended up needing open revision on 08/31/2016 with a revision right colectomy. Following this procedure, course was also complicated by wound infection. The patient received IV antibiotics throughout the course of her illness, including Zosyn from August 26 to and September 08 through . She received 1 dose of ertapenem on September 11, 1 dose of levofloxacin on September 13, perioperative cefoxitin on August 23, Augmentin 875 twice daily from September 03 to September 04 , and most recently was started on cefepime 1 g IV q. 8 on September 11, and Flagyl on September 13. Patient reports since Interventional Radiology placed a drain on 09/14/2016, and to some extent, on 09/08/2016, she has felt increased energy and less abdominal pain. Prior to the placement of these drains, she described burning abdominal pain. Currently, her abdominal pain is minimal. She does feel improved without subjective fevers, chills currently. In addition, upon readmission on September 08 , patient had a mild leukocytosis at 12.5. Today, repeat demonstrates improvement at 4.8. Most recent CT imaging was performed on September 14 that shows a persistent fairly large abscess centered around the mid pelvis, with catheter in that fluid collection as well as separate abscess in left subpulmonic region. There was also thickening of the distal small bowel proximal to the anastomosis. CT was personally reviewed by me Today's plan is to undergo intraoperative management by Dr. Vik Ruiz to perform surgical drainage of both collection, and potentially drain the right side of the abdomen and capture the fistula, as opposed to undergoing ileostomy. PAST MEDICAL HISTORY: 1. Rheumatoid arthritis. 2. Interstitial lung disease. PAST SURGICAL HISTORY: Multiple orthopedic procedures, in addition to surgery above. They did change the dates of Augmentin to include September 03 to September 08. ALLERGIES: NKDA. CURRENT MEDICATIONS: Include [place], cefepime 1 g IV q.8, September 14 start date, Lovenox, Procrit, Toradol, Ativan, metronidazole 500 mg IV q.8, morphine, Zofran , Protonix, and Ambien. SOCIAL HISTORY: The patient is a nonsmoker. She is a mortgage loan specialist. She has 2 children, ages 18 and 20. She has lived in [place] for 18 years, in the [place] area [place]. FAMILY HISTORY: She is somewhat estranged from her biologic father, but he may have some GI-based malignancy. Mom is 88 with dementia. REVIEW OF SYSTEMS: A complete 10-point review of systems was performed and is negative, except as mentioned in the HPI. PHYSICAL EXAM: VITAL SIGNS: Blood pressure 125/80, heart rate 87, respiratory rate 18, saturation 92% on room air, temperature 36.4. Last fever was on September 11. GENERAL: This is a very thin woman, nontoxic appearing, in no acute distress. HEENT: Pupils reactive bilaterally. Oropharynx, good dentition. Moist mucous membranes. NECK: Supple. No lymphadenopathy. CARDIOVASCULAR: Regular rate and rhythm with a 2/6 systolic murmur. CHEST: Clear to auscultation bilaterally. ABDOMEN: Slightly distended. Bowel sounds are present with a drain in the midline that showed bile-tinged fluid with chunks of material. EXTREMITIES: No clubbing, cyanosis, or edema. No joint swelling. SKIN: No rashes. NEUROLOGIC: She was alert and oriented x4, moving all 4 extremities equally. IMAGING: The patient underwent echocardiogram 09/13/2016 that showed an ejection fraction of 70%, mild MR, mild TR,. Trace pulmonic regurgitation. No pericardial effusion. LABORATORY DATA: Today, white count 4.8, hematocrit 27, platelets of 545, creatinine 0.4, AST 17, ALT 26, alk phos 74, albumin 2.4. Microbiology: Fungal culture from September 08 is NGTD. Standard aerobic, anaerobic culture from September 08 had 3+ GNR, 2+ GPR, and 2+ GPCs in pairs on Gram stain with predominant culture showing 3+ E. coli, and 3+ Pseudomonas aeruginosa. E coli had a more resistant susceptibility pattern, including resistance to tobramycin, Bactrim, Zosyn, cefoxitin, cefazolin, and Unasyn. Pseudomonas was gonzalez susceptible. Blood cultures from 09/08/2016 are negative. The patient also had a peritoneal culture from 08/26/2016 that showed mixed intestinal loc. ASSESSMENT AND PLAN: This is a very pleasant 56-year-old woman with a protracted postop course complicated by perforation, now fistula, with intraabdominal abscesses. Most recent cultures show E coli and Pseudomonas, but the Gram stain suggests a mixed organism. Agree with more aggressive source control, which will occur today with further surgical management. Cultures will be taken intraoperatively and will direct antibiotic therapy based off these cultures. With good source control, hopeful for short course antibiotics following this procedure. Currently, patient is on cefepime and Flagyl, which is reasonable coverage. Both E coli and Pseudomonas are susceptible to this agent. Flagyl covers anaerobes. Notable gaps include Babita and enterococcus. 1. Will continue cefepime. Typical dose of cefepime for Pseudomonas coverage is 2 g IV q.8. Patient is only 47 kg, therefore, this slightly lower dose is probably okay. Further primary modality of therapy will be surgical debridement today. 2. Continue metronidazole for now. 3. Length of therapy to be based on surgical impression of source control. 4. Time 65 minutes, which was greater than 50% of the time spent with education and counseling of the patient regarding selection of antibiotics, length of therapy, as well as modality. Also, coordination of care with Dr. Ruiz. Thank you for this consultation. Will continue to follow along with you. /[id number]/MODL MTDD
[2016-09-16] MEDS: EPOETIN ALFA 2,000 UNIT/ML VIAL IVP SCH (13:44)
[2016-09-16] MEDS ORDERED: PROPOFOL 200 MG/20 ML VIAL ONE (15:10)
[2016-09-16] MEDS ORDERED: fentaNYL 100 MCG/2 ML INJ ONE (15:10)
[2016-09-16] MEDS ORDERED: PHENYLEPHRINE HCL 100 MCG/ML SYR ONE (15:12)
[2016-09-16] MEDS ORDERED: ROCURONIUM 50 MG/5 ML VIAL ONE (15:12)
[2016-09-16] MEDS ORDERED: ONDANSETRON 4 MG/2 ML VIAL ONE (15:12)
[2016-09-16] MEDS ORDERED: METOCLOPRAMIDE 10 MG/2 ML VIAL ONE (15:12)
[2016-09-16] MEDS ORDERED: MIDAZOLAM 2 MG/2 ML VIAL ONE (15:15)
[2016-09-16] MEDS ORDERED: SUGAMMADEX SODIUM 200 MG/2 ML VIAL IVP ONE (16:57)
--- NOTE | 2016-09-16 17:53 | POSTOPPROG ---
Post Op Note Date of Operation: 09/16/16 Surgeon: Vipul Ruiz (, FACS) Associate Professor Of Art History: Albert Verdin MD, FACS Anesthesiologist: Ray Peña MD Anesthesia: GET(General Endotracheal) Pre-op Diagnosis: left subphrenic abscess/right abdominal abscess Procedure: drainage L subphrenic abscess/right abdominal wall abscess Inf/Abcess present in the surg proc area at time of surgery?: Yes Depth: Organ Space Drains: Hosea Leija, Other (sump drains)
--- NOTE | 2016-09-16 19:04 | GOP ---
[f rep st] OPERATIVE REPORT DATE OF OPERATION: 09/08/2016 SURGEON: Vipul Ruiz MD, FACS CARE NURSE RN SURGEON: German Verdin MD ANESTHESIA: General endotracheal, Ray Peña MD. PREOPERATIVE DIAGNOSIS: 1. Left subphrenic abscess. 2. Right abdominal abscess/anastomotic fistula. POSTOPERATIVE DIAGNOSIS: same PROCEDURE PERFORMED: 1. Laparoscopic single site drainage, left subphrenic abscess. 2. Open drainage, right abdominal abscess. ESTIMATED BLOOD LOSS: 25 mL. INDICATIONS: Patient is a 56-year-old female, who is status post 3 operations for what was initially a partial colectomy with primary anastomosis for an adenoma of the ascending colon. This was performed laparoscopically with an extracorporeal anastomosis. The anastomosis broke down and was revised a second time and leaked again. Subsequent attempts at closure of the fistula were unsuccessful. The patient has accumulated a large right-sided abdominal abscess that has been drained percutaneously but with incomplete collapse. She was also found, on CT imaging, to have an enlarging left subphrenic collection with air fluid levels consistent with an isolated left subphrenic abscess. After considering the options and discussing these with the patient, I recommended open drainage of the abscess on the right side to capture an anastomotic fistula, rather than complete excision and diversion by ileostomy and mucous fistula. I also recommended laparoscopic-assisted drainage of left subphrenic abscess, and the patient agreed. DESCRIPTION OF PROCEDURE: After informed consent was obtained, the patient was brought to the operating room and placed under general anesthesia. The abdomen was prepped and draped in the usual fashion. Patient had a 12-Maltese catheter just to the left of midline, directed to the right side. This was in the abscess cavity that was draining the anastomotic fistula and had some enteric contents coming out of it. We first addressed the left subphrenic abscess as follows: Before proceeding, a time-out and identification of the patient was performed. Marcaine 0.25% was used to infiltrate the planned incision site in the left upper quadrant, approximately 3-4 cm below the costal margin and just to the edge of the rectus muscle. The skin was incised transversley and dissection was carried through the skin and subcutaneous tissues and anterior and posterior rectus sheaths. The peritoneum was incised, and dense adhesions were encountered. A 12 trocar was introduced and a pneumoperitoneum was established. The inferior gastric wall was visualized as well as the left lateral segment of the liver. There were extensive inflammatory adhesions. The port was removed, and blunt dissection was used to free up the left lateral segment of the liver from the anterior abdominal wall. The scope was reintroduced and purulent fluid was seen to drain from the left upper quadrant cephalad to the tip of the liver. Ultimately, we found it was easier in this extremely slender patient to hold the abdominal wall up with an [facility] retractor and advanced the camera through the incision without a port. This allowed introduction of secondary instruments through the single site, including a Kittner, which was used to retract the liver posteriorly while the abscess cavity was irrigated and aspirated with the suction speeder worker. A 10 mm flat Hosea-Leija drain was cut to an appropriate length and passed into the abscess cavity over the top of the left lateral segment of the liver. The fascia was closed with interrupted 0 Vicryl sutures. The skin was closed with 3 -0 nylon sutures, and this was used to secure the drain to the skin and was attached to a suction bulb. A specimen had been submitted for aerobes, anaerobes, and fungi. Turning our attention to the right-sided abscess, a transverse right lower quadrant incision made just above the anterior superior iliac crest, and dissection was carried out through the skin, subcutaneous tissues, and oblique fascia. An inadvertent colotomy occurred as I was attempting entrance into the abscess cavity. It was immediately recognized and repaired with 2 layers of Vicryl suture running and interrupted by Lembert fashion. The length of this colotomy was approximately 10 mm, and the bowel was healthy with good blood supply. Just lateral to this, the abscess cavity was entered, opened widely, and irrigated. A small amount of enteric-appearing contents were irrigated from the cavity. The old percutaneous drain was removed. After irrigation of the cavity, the 5/30 scope was introduced, and the upper aspect of the cavity noted to have a small fistula tract measuring approximately 2-3 mm, which was likely the source of the leak. The inferior aspect of the cavity extended down into the pelvis, but with a single, non loculated collection. Two sump drains were fashioned out of 1 inch of 0.5 inch Loyda drains, and a 16-Maltese red rubber Reese catheter. These were placed cephalad and caudad within the abscess cavity, brought out through the incision, and secured to the skin with interrupted 3-0 nylon sutures. Incision was left open for drainage. A colostomy flange was placed over the 2 drains, followed by a colostomy bag. The midline incision was dressed with a saline-moistened cotton gauze and ABD pads. The patient was extubated and brought to the recovery room in satisfactory condition. Needle, sponge, and instrument counts correct. COMPLICATIONS: incidental colotomy-repaired EBL: 10 ml /[id number]/MODL MTDD
[2016-09-17] MEDS: CEFEPIME HCL 1 GM in D5W 50 ML IV SCH ×3 (06:26→21:22)
[2016-09-17] MEDS: KETOROLAC 15 MG/1 ML SDV IVP SCH (06:27)
[2016-09-17] MEDS: ENOXAPARIN 40 MG/0.4 ML SYR SC SCH (07:33)
[2016-09-17] MEDS: PANTOPRAZOLE SODIUM 40 MG TAB PO SCH (07:33)
--- NOTE | 2016-09-17 09:30 | PCMIDPN ---
Assessment/Plan: 56-year-old woman with a protracted postop course complicated by perforation, now fistula, with intraabdominal abscesses s/p surgical drainage 09/17/16. Most recent cultures show E coli and Pseudomonas from IR drainage 09/08/16. Now with Sump drains in mid abdominal abscess associated with fistula will be left in place until fistula is "captured." Will plan on antibiotic therapy based source control of L subphrenic abscess. No new labs today --will follow cultures --continue cefepime/flagyl based on current culture data. Current gaps in coverage include enterococcus, yeast Microbiology 09/16/16 17:00 Abdomen - mid abdomen: gram stain neg for org 09/16/16 16:20 Abdomen -LUQ : gram stain neg for org 09/08/16 19:35 Abdomen - Aspirate Anaerobic Culture - Final Escherichia Coli Pseudomonas Aeruginosa 09/08/16 15:27 Blood Cx (2) neg meds cefepime 1gm IV q8, #4 flagyl 500mg IV q8h, #3 Subjective: feeling okay today post op +flatus Objective: Vital Signs Temp Pulse Resp BP Pulse Ox 37.8 C 97 16 98/58 L 91 L 09/17/16 07:32 09/17/16 07:32 09/17/16 07:32 09/17/16 07:32 09/17/16 07:32 Microbiology 09/16/16 17:00 Gram Stain - Final Abdomen - Eswab 09/16/16 16:20 Gram Stain - Final Abdomen - Eswab Laboratory Results 09/16/16 09:06 09/16/16 09:06 09/16/16 09/17/16 09/18/16 05:59 05:59 05:59 Intake Total 1945 2930 Output Total 155 165 Balance 1790 2765 Gen: thin woman NAD o/p MMM CV: RRR Chest: shallow inspiration, clear Abd: 2 sump drain to R of midline, bag with brown/bilious fluid, LUQ JENNY drain with mixture of purulent and serosang fluid. Silver dollar size area of wound dehiscence mid abdomen with good granulation Ext No edema RUE PICC ICD10 Worksheet Patient Problems: Problems Problem Status Onset Colon adenoma Acute
--- NOTE | 2016-09-17 09:45 | SOAPPROG ---
SOAP Progress Note Assessment/Plan: Assessment: s/p drainage abd abscess x 2/colocutaneous fistula doing well discussed w/ Dr. Meyer Plan: continue present antibiotic coverage advance diet leave sump drains in until fistula fully captured JENNY until cavity collapsed and output serous 09/17/16 09:42 Subjective: awake and alert/tolerating liquids passing some flatus Objective: Vital Signs Temp Pulse Resp BP Pulse Ox 37.8 C 97 16 98/58 L 91 L 09/17/16 07:32 09/17/16 07:32 09/17/16 07:32 09/17/16 07:32 09/17/16 07:32 Microbiology 09/16/16 17:00 Gram Stain - Final Abdomen - Eswab 09/16/16 16:20 Gram Stain - Final Abdomen - Eswab Laboratory Results 09/16/16 09:06 09/16/16 09:06 09/16/16 09/17/16 09/18/16 05:59 05:59 05:59 Intake Total 1945 2930 Output Total 155 165 Balance 1790 2765 PT 17.8 SEC (12.0-15.0) H 09/14/16 14:20 INR 1.47 (0.83-1.16) H 09/14/16 14:20 - Pending Discharge Pending Discharge Within 24 Hours: No Pending Discharge Within 48 Hours: No Physical Exam - Physical Exam General Appearance: no apparent distress, mild distress Abdomen: non-tender, soft, other (dressing changed) Neuro/Psych: normal mood/affect, oriented x 3 ICD10 Worksheet Patient Problems: Problems Problem Status Onset Colon adenoma Acute
[2016-09-17] MEDS ORDERED: ACETAMINOPHEN 650 MG/20.3 ML UDCUP PO PRN (09:49)
[2016-09-17] MEDS: IBUPROFEN 600 MG TAB PO PRN ×3 (10:16→21:27)
[2016-09-17] MEDS: MULTIVITAMINS 1 EACH TAB PO SCH (10:16)
[2016-09-17] MEDS: EPOETIN ALFA 2,000 UNIT/ML VIAL IVP SCH (16:32)
[2016-09-18] MEDS: IBUPROFEN 600 MG TAB PO PRN ×3 (06:02→21:29)
[2016-09-18] MEDS: CEFEPIME HCL 1 GM in D5W 50 ML IV SCH ×3 (06:03→21:29)
[2016-09-18 06:42] LABS: HEMATOCRIT 29.7 % (38.0-47.0); HEMOGLOBIN 9.3 g/dL (12.6-16.3); MEAN CELL HEMOGLOBIN 22.6 pg (27.9-34.1); MEAN CELL HEMOGLOBIN CONCENTR. 31.3 g/dL (32.4-36.7); MEAN CELL VOLUME 72.3 fL (81.5-99.8); RED BLOOD CELL COUNT 4.11 10^6/uL (4.18-5.33); RED CELL DISTRIBUTION WIDTH 16.8 % (11.5-15.2)
--- NOTE | 2016-09-18 09:54 | SOAPPROG ---
SOAP Progress Note Assessment/Plan: Assessment: s/p drainage abd abscess x 2/colocutaneous fistula doing well/cultures pending Plan: continue present antibiotic coverage advance diet leave sump drains in until fistula fully captured JENNY until cavity collapsed and output serous 09/17/16 09:42 09/18/16 09:52 Subjective: c/o pain at JENNY sited LUQ tolerated diet advance Objective: Vital Signs Temp Pulse Resp BP Pulse Ox 36.7 C 82 18 97/60 L 96 09/18/16 08:00 09/18/16 08:00 09/18/16 08:00 09/18/16 08:00 09/18/16 08:00 Microbiology 09/16/16 17:00 Gram Stain - Final Abdomen - Eswab 09/16/16 16:20 Gram Stain - Final Abdomen - Eswab Laboratory Results 09/18/16 06:25 09/16/16 09:06 09/17/16 09/18/16 09/19/16 05:59 05:59 05:59 Intake Total 2930 340 650 Output Total 165 330 25 Balance 2765 10 625 PT 17.8 SEC (12.0-15.0) H 09/14/16 14:20 INR 1.47 (0.83-1.16) H 09/14/16 14:20 - Pending Discharge Pending Discharge Within 24 Hours: No Pending Discharge Within 48 Hours: No Physical Exam - Physical Exam General Appearance: no apparent distress Abdomen: non-tender, soft, other (drainage RLQ sump drains enteric/LUQ drain seropurulent) ICD10 Worksheet Patient Problems: Problems Problem Status Onset Colon adenoma Acute
--- NOTE | 2016-09-18 10:35 | PCMIDPN ---
Assessment/Plan: 56-year-old woman with a protracted postop course complicated by perforation, now fistula, with intraabdominal abscesses s/p surgical drainage 09/17/16. Most recent cultures show E coli and Pseudomonas from IR drainage 09/08/16. Now with Sump drains in mid abdominal abscess associated with fistula - will be left in place until fistula is "captured." WBC normal today, platelets trending down corroborating improved control of infection. --awaiting additional cx data --continue cefepime/flagyl based on current culture data. Current gaps in coverage include enterococcus, yeast --have not placed PICC as there is a chance for oral antibiotic therapy if no new organisms isolated obligating us to IV (levo/flagyl) --Will plan on antibiotic therapy based source control of L subphrenic abscess, i.e removal of drain. antibiotics for 7 days after drain removal. Microbiology 09/16/16 17:00 Abdomen - mid abdomen: gram stain neg for org 09/16/16 16:20 Abdomen -LUQ : gram stain neg for org 09/08/16 19:35 Abdomen - Aspirate Anaerobic Culture - Final Escherichia Coli Pseudomonas Aeruginosa 09/08/16 15:27 Blood Cx (2) neg meds cefepime 1gm IV q8, #5 flagyl 500mg IV q8h, #4 Subjective: had shower today tolerating advanced diet Objective: Vital Signs Temp Pulse Resp BP Pulse Ox 36.7 C 82 18 97/60 L 96 09/18/16 08:00 09/18/16 08:00 09/18/16 08:00 09/18/16 08:00 09/18/16 08:00 Microbiology 09/16/16 17:00 Gram Stain - Final Abdomen - Eswab 09/16/16 16:20 Gram Stain - Final Abdomen - Eswab Laboratory Results 09/18/16 06:25 09/16/16 09:06 09/17/16 09/18/16 09/19/16 05:59 05:59 05:59 Intake Total 2930 340 650 Output Total 165 330 25 Balance 2765 10 625 Gen: thin woman NAD o/p MMM CV: RRR Chest: shallow inspiration, clear Abd: 2 sump drain to R of midline, bag obvious fecal material, LUQ JENNY drain with mixture of purulent and serosang fluid 40cc/24hrs. Marcell lewisar size area of wound dehiscence mid abdomen with good granulation no erythema Ext No edema ICD10 Worksheet Patient Problems: Problems Problem Status Onset Colon adenoma Acute
[2016-09-18] MEDS: PANTOPRAZOLE SODIUM 40 MG TAB PO SCH (11:08)
[2016-09-18] MEDS: MULTIVITAMINS 1 EACH TAB PO SCH (11:08)
[2016-09-18] MEDS: ENOXAPARIN 40 MG/0.4 ML SYR SC SCH (11:11)
[2016-09-18] MEDS: EPOETIN ALFA 2,000 UNIT/ML VIAL IVP SCH (14:09)
[2016-09-18] MEDS ORDERED: BISACODYL 10 MG SUPP PR ONE (16:30)
--- NOTE | 2016-09-18 17:51 | WOCRNPDOC ---
VICKI Advanced Assessment Note - Skin Integrity Problem, Advanced Assess Medial Abdomen Surgical Wound/Incision Dressing Type: Gauze Dressing Description: Clean/Dry Exudate Amount: Scant Exudate Color: Reddish/Yellow Exudate Characteristic(s): Serosanguinous Integumentary Issue Intervention: Dressing Changed, Dressing Initialed & Dated, Dressing Removed Tanya Wound Tissue: Intact Wound Bed Constitution: Granulation Tissue Wound Edges: Epithelizing, Attached, Well Defined Site Odor: None Site Measurement - Head-to-Toe Length X Width X Depth (cm): 3 x 2 x 0.3 Skin Integrity Problem Comment: Clean, pink-red, granulating, healing at margin. Cleaned w/NS and gauze, skin prep to periwound, filled w/honey hydrocolloid, covered w/Allevyn. CANDIS Londono assisting. Lower Medial Abdomen Surgical Wound/Incision Dressing Type: Open to Air Exudate Characteristic(s): None Integumentary Issue Intervention: Dressing Applied, Dressing Initialed & Dated Tanya Wound Tissue: Erythema, Indurated (w/tenderness to slight palpation) Tanya Wound Swelling: Mild Wound Bed Color: Red Wound Edges: Well Defined Site Odor: None Site Measurement - Head-to-Toe Length X Width X Depth (cm): 0.3 mary x 0.5 d Skin Integrity Problem Comment: Old drain site is slightly erythemic and tender. Due to tenderness, was unable to ascertain whether tunneling is present. Flushed opening w/sterile NS. Wicked dry using sterile gauze; skin prepped periwound, applied Silvasorb gel and small Allevyn dressing. Right Abdomen Fistula Drain Site Dressing Type: Other Other Dressing Type: 2-3/5" two-piece colostomy pouch Dressing Description: Not Intact (skin exposed around fistula drains) Exudate Amount: Moderate Exudate Color: Brown Exudate Characteristic(s): Fecal, Liquid Integumentary Issue Intervention: Dressing Changed, Dressing Removed Tanya Wound Tissue: Intact (pink) Tanya Wound Swelling: None Site Odor: None Site Measurement - Head-to-Toe Length X Width X Depth (cm): 2.5 x 3 x drains Skin Integrity Problem Comment: Three fistula drains clustered in one opening, sutured in place with ostomy appliance capturing effluent. Surrounding skin pink and intact. Provided patient with detailed printed, verbal, and demo education about care and appliance change. Post-op Day 2 ileostomy education packet given, and enrolling patient in [place] samples and support program, with her consent. CANDIS Londono present and assisting.
[2016-09-19] MEDS: CEFEPIME HCL 1 GM in D5W 50 ML IV SCH ×3 (05:41→21:10)
[2016-09-19] MEDS: IBUPROFEN 600 MG TAB PO PRN ×3 (07:27→21:10)
[2016-09-19] MEDS: PANTOPRAZOLE SODIUM 40 MG TAB PO SCH (07:28)
[2016-09-19] MEDS: ENOXAPARIN 40 MG/0.4 ML SYR SC SCH (11:15)
[2016-09-19] MEDS: MULTIVITAMINS 1 EACH TAB PO SCH (11:15)
--- NOTE | 2016-09-19 13:06 | SOAPPROG ---
SOAP Progress Note Assessment/Plan: Assessment: s/p drainage abd abscess x 2/colocutaneous fistula Plan: continue present antibiotic coverage advance diet/continue low residue leave sump drains in until fistula fully captured JENNY until cavity collapsed and output serous 09/17/16 09:42 09/18/16 09:52 09/19/16 13:05 Subjective: LUQ drain site painful small BM after dulcolax Objective: Vital Signs Temp Pulse Resp BP Pulse Ox 36.6 C 84 16 101/66 92 09/19/16 07:58 09/19/16 07:58 09/19/16 07:58 09/19/16 07:58 09/19/16 07:58 Microbiology 09/16/16 16:20 Gram Stain - Final Abdomen - Eswab 09/16/16 17:00 Gram Stain - Final Abdomen - Eswab Laboratory Results 09/18/16 06:25 09/16/16 09:06 09/18/16 09/19/16 09/20/16 05:59 05:59 05:59 Intake Total 340 1140 250 Output Total 330 85 75 Balance 10 1055 175 PT 17.8 SEC (12.0-15.0) H 09/14/16 14:20 INR 1.47 (0.83-1.16) H 09/14/16 14:20 - Pending Discharge Pending Discharge Within 24 Hours: No Pending Discharge Within 48 Hours: No Physical Exam - Physical Exam General Appearance: no apparent distress Abdomen: normal bowel sounds, soft, other (LUQ JENNY serous drainage/RLQ drain site feculent) ICD10 Worksheet Patient Problems: Problems Problem Status Onset Colon adenoma Acute
[2016-09-19] MEDS: POLYETHYLENE GLYCOL 3350 17 GM PKT PO SCH (13:32)
[2016-09-19] MEDS: SENNOSIDES/DOCUSATE SODIUM TAB PO SCH ×3 (13:32→21:48)
[2016-09-19] MEDS: EPOETIN ALFA 2,000 UNIT/ML VIAL IVP SCH (13:43)
[2016-09-19] MEDS ORDERED: ALTEPLASE 2 MG VIAL IVP PRN (15:58)
--- NOTE | 2016-09-19 17:49 | PCMIDPN ---
Assessment/Plan: Assessment: Colonic fistula and abdominal abscess status post incision and drainage with fistula capture. Patient continues to make slow clinical progress. Suspect that the significant left upper quadrant pain that the patient continues to have is secondary to the drain sitting against the inflamed peritoneal lining. Overall she is slowly improving. Currently being managed on cefepime and Flagyl. This regimen cover the moderately resistant E coli and Pseudomonas found in the initial IR drainage fluid. Cultures taken during the most recent operative procedure reveal Enterococcus. This is not nominally covered by the cefepime or Flagyl. Unfortunately the E coli from the initial aspirate is not penicillin derivative sensitive. Given the polymicrobial aspect of the culture on 09/16 and the low amount of Enterococcus we may not need to expand coverage for it at this point. If the patient continues to improve with drainage alone may continue with prior plan to switch to oral antibiotics upon discharge. Plan: 1. Continue both IV cefepime and Flagyl. 2. Follow course of clinical improvement. If she stays on an improving trajectory then do not plan any changes in antibiotic coverage regimen. Subjective: Patient is resting in her hospital bed. She denies any specific new complaint. States that it hurts under her left ribcage when she takes a deep breath. Objective: Cefepime # 6 Flagyl # 5 Vital Signs Temp Pulse Resp BP Pulse Ox 36.4 C 90 17 95/57 L 94 09/19/16 16:00 09/19/16 16:00 09/19/16 16:00 09/19/16 16:00 09/19/16 16:00 Microbiology 09/16/16 16:20 Gram Stain - Final Abdomen - Eswab 09/16/16 17:00 Gram Stain - Final Abdomen - Eswab Laboratory Results 09/18/16 06:25 09/16/16 09:06 09/18/16 09/19/16 09/20/16 05:59 05:59 05:59 Intake Total 340 1140 450 Output Total 330 85 75 Balance 10 1055 375 - Physical Exam General Appearance: WD/WN, alert, no apparent distress, thin, non-toxic Respiratory: lungs clear, normal breath sounds, No respiratory distress Cardiac/Chest: regular rate, rhythm, No tachycardia Abdomen: soft, No non-tender (Left upper quadrant tenderness) Skin: normal color, warm/dry, No rash Neuro/Psych: alert, normal mood/affect, oriented x 3 ICD10 Worksheet Patient Problems: Problems Problem Status Onset Colon adenoma Acute
[2016-09-20] MEDS: CEFEPIME HCL 1 GM in D5W 50 ML IV SCH ×3 (05:50→23:14)
--- NOTE | 2016-09-20 07:59 | SOAPPROG ---
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 Plan: continue present antibiotic coverage advance diet/continue low residue leave sump drains in until fistula fully captured JENNY until cavity collapsed and output serous 09/17/16 09:42 09/18/16 09:52 09/19/16 13:05 09/20/16 07:58 Subjective: LUQ pain from JENNY site stinging from ryan site no BM Objective: Vital Signs Temp Pulse Resp BP Pulse Ox 36.9 C 95 17 108/59 L 93 09/19/16 23:52 09/19/16 23:52 09/19/16 23:52 09/19/16 23:52 09/19/16 23:52 Microbiology 09/16/16 17:00 Gram Stain - Final Abdomen - Eswab 09/16/16 16:20 Gram Stain - Final Abdomen - Eswab Laboratory Results 09/18/16 06:25 09/16/16 09:06 09/19/16 09/20/16 09/21/16 05:59 05:59 05:59 Intake Total 1140 990 Output Total 85 455 Balance 1055 535 PT 17.8 SEC (12.0-15.0) H 09/14/16 14:20 INR 1.47 (0.83-1.16) H 09/14/16 14:20 Physical Exam - Physical Exam General Appearance: no apparent distress Abdomen: non-tender, soft, distended (mild/ryan minimal feculent drainage, JENNY clear serous) ICD10 Worksheet Patient Problems: Problems Problem Status Onset Colon adenoma Acute
[2016-09-20] MEDS: MULTIVITAMINS 1 EACH TAB PO SCH (09:46)
[2016-09-20] MEDS: IBUPROFEN 600 MG TAB PO PRN ×2 (09:46→21:33)
[2016-09-20] MEDS: PANTOPRAZOLE SODIUM 40 MG TAB PO SCH (09:46)
[2016-09-20] MEDS: POLYETHYLENE GLYCOL 3350 17 GM PKT PO SCH (09:46)
[2016-09-20] MEDS: SENNOSIDES/DOCUSATE SODIUM TAB PO SCH ×2 (09:47→21:26)
[2016-09-20] MEDS: ENOXAPARIN 40 MG/0.4 ML SYR SC SCH (09:47)
--- NOTE | 2016-09-20 11:24 | WOCRNPDOC ---
WOCRN Advanced Assessment Note - Skin Integrity Problem, Advanced Assess Medial Abdomen Surgical Wound/Incision Dressing Type: Allevyn Life, Honey Sheet (hydrocolloid) Dressing Description: Clean/Dry Exudate Amount: Minimal Exudate Color: Yellow (mostly dissolving honey dressing) Exudate Characteristic(s): Thick Integumentary Issue Intervention: Dressing Changed Tarsha Wound Tissue: Painful/Tender Tarsha Wound Swelling: None Wound Bed Color: Red Wound Bed Constitution: Granulation Tissue Wound Edges: Epithelizing Site Measurement - Head-to-Toe Length X Width X Depth (cm): 3cmx1.9cmx0.2cm Skin Integrity Problem Comment: Midline abdominal wound w/ 100% granulation tissue noted and no apparent necrosis. Tarsha-wound skin is intact w/ no erythema observed. Previous dressing of honey hydrocolloid imparting too much moisture to wound; changed to Hydrofera Blue ready foam, followed by Allevyn Life. Patient remains very tender throughout her abdomen, necessitating very gentle dressing changes and use of adhesive remover. Lower Medial Abdomen Surgical Wound/Incision Dressing Type: Band Aid Dressing Description: Clean/Dry Exudate Amount: Moderate Exudate Color: Yellow Exudate Characteristic(s): Thick Integumentary Issue Intervention: Dressing Changed Tarsha Wound Tissue: Erythema Tarsha Wound Swelling: None Wound Bed Color: Red Site Odor: None Skin Integrity Problem Comment: This is a previous drain site covered by a Band- aid. Upon removal, the site began to immediately drain copious amounts of thick , yellow exudate. No odor noted. After a minute, the exudate stopped; I suspect the Band-aid had been keeping the drainage trapped. Changed dressing to gauze and silicone tape to allow exudate to flow out. There is some mild tarsha-wound erythema, w/ no swelling observed. Applied skin prep to protect surrounding skin. Right Abdomen Drain Site Dressing Type: Other Other Dressing Type: 2 piece 2 3/4 ostomy barrier and pouch Dressing Description: Clean/Dry Integumentary Issue Intervention: Dressing Changed Site Measurement - Head-to-Toe Length X Width X Depth (cm): opening for drains [id number] Skin Integrity Problem Comment: 3 patent drains noted in RLQ, sutured in place and draining thin, brown fecal matter into ostomy pouching system. Patient c/o itching and burning on tarsha-drain skin. There is some mild erythema, consistent w/ irritation from stool, on the skin surrounding the drains. I applied Advanced Skin Protection barrier film to surrounding skin for protection, then re-pouched site w/ 2-piece 2 3/4 inch puching system.
[2016-09-20] MEDS: LACTULOSE 20 GM/30 ML UDCUP PO SCH ×2 (11:32→21:27)
--- NOTE | 2016-09-20 14:24 | PCMIDPN ---
Assessment/Plan: Assessment/Plan: 1. Colonic fistula/abdominal abscess: - Currently on Cefepime + Flagyl -Recent abd cultures now with new data: 09/16/16: E. coli and Clostridium ; : Enterococcus fecalis. spoke to andrew the e. fecalis is sensitive to levofloxacin with HOOD <1,dapto hood=2 .I spoke to Maryuri. She will update profile. -Was planning to change cefepime to levaquin but patient has history of tendon rupture and is concerned about taking levaquin. -Not clear on what contribution enterococcus is having but was isolated and has ongoing fistula so would recommend treating. -will add vanco and continue cefepime, flagyl. -Duration with be dependent on clinical course, duration of drains etc. -check labs in am. Meds cefepime 1g q8- 09/14/16 flagyl 500mg q8- 09/14/16 09/20/16 15:36 Subjective: AFebrile. Feels ok. Abd pain present. has discomfort associated with the JENNY drain that is more deep and discomfort related to sump drain that is more superficial. Denies sob. denies rash. Objective: Vital Signs Temp Pulse Resp BP Pulse Ox 36.4 C 92 16 113/76 96 09/20/16 08:00 09/20/16 08:00 09/20/16 08:00 09/20/16 08:00 09/20/16 08:00 Microbiology 09/16/16 16:20 Gram Stain - Final Abdomen - Eswab 09/16/16 17:00 Gram Stain - Final Abdomen - Eswab Laboratory Results 09/18/16 06:25 09/16/16 09:06 09/19/16 09/20/16 09/21/16 05:59 05:59 05:59 Intake Total 1140 990 Output Total 85 455 Balance 1055 535 - Physical Exam General Appearance: alert, no apparent distress Respiratory: lungs clear Cardiac/Chest: regular rate, rhythm Extremities: other (picc line RUE: no swelling), No swelling Abdomen: distended, other (JENNY drain left abd (bloody, mildly thick appearance), sump drain right abd. ) Skin: No erythema - Time Spent With Patient Time Spent with Patient: greater than 35 minutes Time Spent with Patient: Greater than 35 minutes spent on this patients care, greater than 50% of time spent counseling, educating, and coordinating care regarding the above mentioned plan. ICD10 Worksheet Patient Problems: Problems Problem Status Onset Colon adenoma Acute
[2016-09-20] MEDS ORDERED: VANCOMYCIN 750 MG in D5W 150 ML IV SCH (16:00)
[2016-09-20] MEDS: VANCOMYCIN 750 MG in D5W 150 ML IV SCH (16:56)
[2016-09-21] MEDS: VANCOMYCIN 750 MG in D5W 150 ML IV SCH (03:36)
[2016-09-21 03:52] LABS: % IMMATURE GRANULYOCYTES 0.6 % (0.0-1.1); ABSOLUTE IMMATURE GRANULOCYTES 0.04 10^3/uL (0.00-0.10); ADD DIFF? NO; ADD MORPH? NO; ADD SCAN? NO; ATYPICAL LYMPHOCYTE FLAG 40 (0-99); FRAGMENT RBC FLAG 40 (0-99); HEMOGLOBIN 7.8 g/dL (12.6-16.3); LEFT SHIFT FLG 40 (0-99); LIPEMIA HEMOLYSIS FLAG 80 (0-99); MEAN CELL HEMOGLOBIN CONCENTR. 32.5 g/dL (32.4-36.7); MEAN CELL VOLUME 70.8 fL (81.5-99.8); MEAN PLATELET VOLUME 9.3 fL (8.7-11.7); PLATELET CLUMPS FLAG 0 (0-99); PLATELET COUNT 509 10^3/uL (150-400); RED BLOOD CELL COUNT 3.39 10^6/uL (4.18-5.33); RED CELL DISTRIBUTION WIDTH 16.9 % (11.5-15.2)
[2016-09-21 04:27] LABS: ALANINE AMINOTRANSFERASE 21 IU/L (9-52); ALBUMIN 2.1 g/dL (3.5-5.0); ALKALINE PHOSPHATASE 66 IU/L (38-126); ANION GAP 7 mEq/L (8-16); ASPARTATE AMINOTRANSFERASE 16 IU/L (14-46); BILIRUBIN,TOTAL 0.5 mg/dL (0.1-1.4); CALCIUM 7.9 mg/dL (8.5-10.4); CARBON DIOXIDE 26 mEq/l (22-31); CHLORIDE 105 mEq/L (97-110); CREATININE 0.4 mg/dL (0.6-1.0); GLOMERULAR FILTRATION RATE > 60; GLUCOSE 96 mg/dL (70-100); POTASSIUM 3.7 mEq/L (3.5-5.2); SODIUM 138 mEq/L (134-144); TOTAL PROTEIN 4.9 g/dL (6.3-8.2)
[2016-09-21] MEDS: CEFEPIME HCL 1 GM in D5W 50 ML IV SCH ×3 (05:07→23:00)
[2016-09-21] MEDS: SENNOSIDES/DOCUSATE SODIUM TAB PO SCH ×4 (08:31→21:11)
[2016-09-21] MEDS: PANTOPRAZOLE SODIUM 40 MG TAB PO SCH (08:31)
[2016-09-21] MEDS: MULTIVITAMINS 1 EACH TAB PO SCH (08:32)
[2016-09-21] MEDS: LACTULOSE 20 GM/30 ML UDCUP PO SCH ×2 (09:41→21:09)
[2016-09-21] MEDS: POLYETHYLENE GLYCOL 3350 17 GM PKT PO SCH (09:41)
[2016-09-21] MEDS: ENOXAPARIN 40 MG/0.4 ML SYR SC SCH (09:42)
[2016-09-21] MEDS: IBUPROFEN 600 MG TAB PO PRN ×2 (10:10→21:11)
--- NOTE | 2016-09-21 13:43 | SOAPPROG ---
Downtime Inpatient MD Late Entry SOAP Note: Adri feels better today, she had some further drainage spontaneously from her suprapubic drain site yesterday. Today she had 2 episodes of large loose stools. He abdomen is soft and mildly distended. Her left JENNY is serous cultures are growing E coli + Clostridium from the subphrenic collection (sensi pending) Imp: clinically improving Rec: continue Abx per ID discussed diet and activity Tin Ruiz MD, FACS
--- NOTE | 2016-09-21 15:07 | PCMIDPN ---
Assessment/Plan: 56-year-old woman with a protracted postop course complicated by perforation, now fistula, with intraabdominal abscesses s/p surgical drainage 09/17/16. Sump drains in mid abdominal abscess associated with fistula - will be left in place until fistula is "captured." Cx from this site grew enterococcus and E coli/ clostridium grew from subpleural abscess. WBC normal today, and slight elevation platelets not unexpected in light of resolving infection --do not think coverage of enterococcus is necessary because came from fistula site, DC vancomycin --awaiting sensi for e coli, requested lab to run today. 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7 C 83 12 118/72 92 09/21/16 07:20 09/21/16 07:20 09/21/16 07:20 09/21/16 07:20 09/21/16 07:20 Microbiology 09/16/16 16:20 Gram Stain - Final Abdomen - Eswab 09/16/16 17:00 Gram Stain - Final Abdomen - Eswab Laboratory Results 09/21/16 03:30 09/21/16 03:30 09/20/16 09/21/16 09/22/16 05:59 05:59 05:59 Intake Total 990 1860 Output Total 455 125 255 Balance 535 1735 -255 - Physical Exam General Appearance: alert, no apparent distress EENT: No scleral icterus Respiratory: lungs clear Neck: supple Cardiac/Chest: regular rate, rhythm, systolic murmur Extremities: No pedal edema Abdomen: non-tender, soft, other (LUQ drain, minimal output, serous) Skin: No rash Neuro/Psych: alert, normal mood/affect, oriented x 3 - Line/s RUE PICC Lines: No drainage, No erythema - Time Spent With Patient Time Spent with Patient: greater than 35 minutes (reviewed need for IV antibiotics via picc at home for short period after dc) Time Spent with Patient: Greater than 35 minutes spent on this patients care, greater than 50% of time spent counseling, educating, and coordinating care regarding the above mentioned plan. ICD10 Worksheet Patient Problems: Problems Problem Status Onset Colon adenoma Acute
[2016-09-22] MEDS: CEFEPIME HCL 1 GM in D5W 50 ML IV SCH ×3 (06:03→20:03)
[2016-09-22] MEDS: ENOXAPARIN 40 MG/0.4 ML SYR SC SCH (08:49)
[2016-09-22] MEDS: POLYETHYLENE GLYCOL 3350 17 GM PKT PO SCH (08:50)
[2016-09-22] MEDS: LACTULOSE 20 GM/30 ML UDCUP PO SCH ×2 (08:50→20:07)
[2016-09-22] MEDS: SENNOSIDES/DOCUSATE SODIUM TAB PO SCH ×2 (08:51→20:04)
[2016-09-22] MEDS: MULTIVITAMINS 1 EACH TAB PO SCH (08:51)
[2016-09-22] MEDS: PANTOPRAZOLE SODIUM 40 MG TAB PO SCH (08:52)
[2016-09-22] MEDS: IBUPROFEN 600 MG TAB PO PRN ×2 (11:38→20:48)
--- NOTE | 2016-09-22 13:51 | PDIAF ---
- Diagnosis Diagnosis: Psa, E coli, clostridium Abdominal Abscess Code Status: Full Code - Medication Management Discharge Medications: Medications to Continue on Transfer Amoxicillin/Clavulanate Pot [Augmentin 875 MG TAB (*)] 875 mg PO BID 09/08/16 [ Last Taken 09/08/16 09:00] Ibuprofen [Motrin (*)] 400 mg PO Q6H 09/08/16 [Last Taken 09/07/16] [facility] Antibiotics: cefepime 2g IV [id number], flagyl 500mg PO TID [facility] Antibiotic Stop Date: 10/06/16 Discharge Medications: Refer to the Discharge Home Medication list for PRN reason. PICC Care - Routine: Yes - Orders Services needed: Home Care, Registered Nurse Home Care Face to Face: I certify that this patient was under my care and that I had the required [id number] encounter meeting the encounter requirements on the discharge day. My findings support the fact that the patient is homebound as defined in CMS Chapter 7 Medicare Benefits Manual 30.1.1, The condition of the patient is such that there exists a normal inability to leave home and consequently, leaving home would require a considerable and taxing effort. - Labs/Radiology CBC Date: 09/26/16 (weekly Monday) CMP Date: 09/26/16 (weekly Monday) Call or Fax Lab and Imaging Results to: jaron [id number] - Follow Up Care Current Providers and Referrals: Maryuri Fung MD [Primary Care Provider] - As per Instructions Elissa Meyer MD [Medical Doctor] - (as needed)
--- NOTE | 2016-09-22 13:53 | PCMIDPN ---
Assessment/Plan: 56-year-old woman with a protracted postop course complicated by perforation, now fistula, with intraabdominal abscesses s/p surgical drainage 09/17/16. Sump drains in mid abdominal abscess associated with fistula - will be left in place until fistula is "captured." Cx from this site grew enterococcus and E coli/ clostridium grew from subpleural abscess. No new labs today --do not think coverage of enterococcus is necessary because came from fistula site --awaiting sensi for e coli, requested yesterday. 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 DC on PO flagyl. Wrote interagency, although unclear stop date because drain still in place Microbiology 09/16/16 17:00 Abdomen - mid abdomen: enterococcus 09/16/16 16:20 Abdomen -LUQ : gram stain neg for org; e coli, clostridium 09/08/16 19:35 Abdomen - Aspirate Anaerobic Culture - Final Escherichia Coli Pseudomonas Aeruginosa 09/08/16 15:27 Blood Cx (2) neg meds cefepime 1gm IV q8, #9 flagyl 500mg IV q8h, #8 Subjective: feel a little more tired today Objective: Vital Signs Temp Pulse Resp BP Pulse Ox 37.1 C 86 16 110/66 95 09/22/16 08:44 09/22/16 08:44 09/22/16 08:44 09/22/16 08:44 09/22/16 08:44 Microbiology 09/16/16 16:20 Gram Stain - Final Abdomen - Eswab 09/16/16 17:00 Gram Stain - Final Abdomen - Eswab Laboratory Results 09/21/16 03:30 09/21/16 03:30 09/21/16 09/22/16 09/23/16 05:59 05:59 05:59 Intake Total 1860 2175 640 Output Total 125 430 Balance 1735 1745 640 Gen: nontoxic thin woman NAD MMM CV: RRR Chest: clear B Abd: R sided sump drains w associated fecal matter, LUQ drain small amount cloudy fluid, 10cc/24hours RUE PICC c/d/i no rashes ICD10 Worksheet Patient Problems: Problems Problem Status Onset Colon adenoma Acute
--- NOTE | 2016-09-22 16:14 | PDIAF ---
- Diagnosis Diagnosis: Psa, E coli, clostridium Abdominal Abscess Code Status: Full Code - Medication Management Discharge Medications: Medications to Continue on Transfer Amoxicillin/Clavulanate Pot [Augmentin 875 MG TAB (*)] 875 mg PO BID 09/08/16 [ Last Taken 09/08/16 09:00] Ibuprofen [Motrin (*)] 400 mg PO Q6H 09/08/16 [Last Taken 09/07/16] [facility] Antibiotics: cefepime 2g IV [id number], flagyl 500mg PO TID [facility] Antibiotic Stop Date: 09/30/16 Discharge Medications: Refer to the Discharge Home Medication list for PRN reason. PICC Care - Routine: Yes - Orders Services needed: Home Care, Registered Nurse Home Care Face to Face: I certify that this patient was under my care and that I had the required [id number] encounter meeting the encounter requirements on the discharge day. My findings support the fact that the patient is homebound as defined in CMS Chapter 7 Medicare Benefits Manual 30.1.1, The condition of the patient is such that there exists a normal inability to leave home and consequently, leaving home would require a considerable and taxing effort. - Labs/Radiology CBC Date: 09/26/16 (weekly Monday) CMP Date: 09/26/16 (weekly Monday) Call or Fax Lab and Imaging Results to: jaron [id number] - Follow Up Care Current Providers and Referrals: Maryuri Fung MD [Primary Care Provider] - As per Instructions Elissa Meyer MD [Medical Doctor] - (as needed)
--- NOTE | 2016-09-22 16:15 | SOAPPROG ---
Downtime Inpatient MD Late Entry SOAP Note: Adri is feeling better/JENNY drainage LUQ has slowed down-drain was removed. Her right sided colocutaneous fistula output remains moderate. She is interested in returning home to continue her recovery as an outpatient and could do so in the next day or so if homecare services are available. Tin Ruiz MD, FACS
[2016-09-23] MEDS: CEFEPIME HCL 1 GM in D5W 50 ML IV SCH ×3 (05:48→22:21)
--- NOTE | 2016-09-23 07:44 | SOAPPROG ---
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 Plan: continue present antibiotic coverage advance diet/continue low residue leave sump drains in until fistula fully captured I will manage this as an oupatient in the office She will need [facility] to help her manage her wound drainage collection bag and open granulating wound and she will need outpatient antibiotic infusion for the next week (Cefepime 2gm IVPB q12h) and will continue Flagyl 500mg po TID 09/17/16 09:42 09/18/16 09:52 09/19/16 13:05 09/20/16 07:58 09/23/16 07:41 Subjective: Adri is a little worried about the logistics of returning home/she is feeling well and has had a couple of formed stools Objective: Vital Signs Temp Pulse Resp BP Pulse Ox 36.8 C 106 H 16 116/68 93 09/22/16 23:50 09/22/16 23:50 09/22/16 23:50 09/22/16 23:50 09/22/16 23:50 Microbiology 09/16/16 16:20 Gram Stain - Final Abdomen - Eswab 09/16/16 17:00 Gram Stain - Final Abdomen - Eswab Laboratory Results 09/21/16 03:30 09/21/16 03:30 09/22/16 09/23/16 09/24/16 05:59 05:59 05:59 Intake Total 2525 1650 Output Total 430 150 Balance 2095 1500 PT 17.8 SEC (12.0-15.0) H 09/14/16 14:20 INR 1.47 (0.83-1.16) H 09/14/16 14:20 Physical Exam - Physical Exam General Appearance: alert, no apparent distress Respiratory: lungs clear Cardiac/Chest: regular rate, rhythm Abdomen: non-tender, soft, other (LUQ drain site uncomplicated/moderate drainage colocutaneous fistula site) ICD10 Worksheet Patient Problems: Problems Problem Status Onset Colon adenoma Acute
[2016-09-23] MEDS: LACTULOSE 20 GM/30 ML UDCUP PO SCH ×2 (08:15→22:26)
[2016-09-23] MEDS: POLYETHYLENE GLYCOL 3350 17 GM PKT PO SCH (08:15)
[2016-09-23] MEDS: ENOXAPARIN 40 MG/0.4 ML SYR SC SCH (08:18)
[2016-09-23] MEDS: MULTIVITAMINS 1 EACH TAB PO SCH (08:18)
[2016-09-23] MEDS: SENNOSIDES/DOCUSATE SODIUM TAB PO SCH ×2 (08:18→22:21)
[2016-09-23] MEDS: PANTOPRAZOLE SODIUM 40 MG TAB PO SCH (08:18)
--- NOTE | 2016-09-23 10:58 | WOCRNPDOC ---
WOCRN Advanced Assessment Note - Skin Integrity Problem, Advanced Assess Medial Abdomen Surgical Wound/Incision Dressing Type: Allevyn Life, Hydrofera Blue Ready Dressing Description: Clean/Dry, Intact Exudate Amount: Scant Exudate Color: Reddish/Yellow Exudate Characteristic(s): Serosanguinous Integumentary Issue Intervention: Dressing Changed Tarsha Wound Tissue: Intact Wound Bed Color: Red Wound Bed Constitution: Granulation Tissue Wound Edges: Epithelizing, Attached Site Odor: None Site Measurement - Head-to-Toe Length X Width X Depth (cm): 2.9cmx1.9cmx0.2cm Skin Integrity Problem Comment: Wound granulating nicely, epthelializing along margins. No erythema or swelling noted. Continue w/ Hydrofera Blue Ready dressing in the outpatient setting with home care. Right Abdomen Drain Site Dressing Type: Other Other Dressing Type: 2-piece [place] ostomy system, 2 3/4 inch barrier Dressing Description: Intact Closure Description: Sutures (securing drains) Integumentary Issue Intervention: Dressing Changed Tarsha Wound Tissue: Erythema, Intact Skin Integrity Problem Comment: Three, patent drains noted in RLQ, and ostomy pouch has thin, bown effluent present. There is some mild erythema noted at 9 o' clock on tarsha-drain skin where it has come into contact w/ stool. I applied 3M Advanced Skin protection barrier film again to help protect. In addition, DC orders include instructions about how to protect surrounding skin, as this will more than likely be an ongoing issue until site is closed. Suprapubic surgical incision/dc'd JENNY site Dressing Type: Gauze Dressing Description: Intact Exudate Amount: Scant Exudate Color: Yellow Exudate Characteristic(s): Dried Integumentary Issue Intervention: Visualized Under Dressing Tarsha Wound Tissue: Intact Tarsha Wound Swelling: None Wound Bed Color: [place] Wound Edges: Epithelizing Skin Integrity Problem Comment: Previous JENNY site is beginning to epithelialize. No exudate noted emanating from site today, and gauze had only scant, dried drainage. Continue w/ gauze until site closes.
[2016-09-23] MEDS: metroNIDAZOLE 500 MG TAB PO SCH ×2 (14:14→22:21)
[2016-09-23] MEDS: IBUPROFEN 600 MG TAB PO PRN (15:10)
[2016-09-24] MEDS: metroNIDAZOLE 500 MG TAB PO SCH ×3 (06:20→21:06)
[2016-09-24] MEDS: CEFEPIME HCL 1 GM in D5W 50 ML IV SCH ×3 (06:20→21:05)
[2016-09-24] MEDS: POLYETHYLENE GLYCOL 3350 17 GM PKT PO SCH (08:37)
[2016-09-24] MEDS: LACTULOSE 20 GM/30 ML UDCUP PO SCH ×2 (08:37→16:43)
[2016-09-24] MEDS: MULTIVITAMINS 1 EACH TAB PO SCH (08:52)
[2016-09-24] MEDS: PANTOPRAZOLE SODIUM 40 MG TAB PO SCH (08:52)
[2016-09-24] MEDS: ENOXAPARIN 40 MG/0.4 ML SYR SC SCH (08:52)
[2016-09-24] MEDS: SENNOSIDES/DOCUSATE SODIUM TAB PO SCH ×2 (08:52→21:06)
[2016-09-24] MEDS: IBUPROFEN 600 MG TAB PO PRN (08:52)
--- NOTE | 2016-09-24 09:20 | SOAPPROG ---
[facility] Progress Note Assessment/Plan: Assessment: s/p drainage abd abscess x 2/colocutaneous fistula currently on Cefipime and Flagyl Plan: continue present antibiotic coverage advance diet/continue low residue leave sump drains in until fistula fully captured I will manage this as an oupatient in the office She will need [facility] to help her manage her wound drainage collection bag and open granulating wound and she will need outpatient antibiotic infusion for the next week (Cefepime 2gm IVPB q12h) and will continue Flagyl 500mg po TID I spent 45 minutes yesterday and 20 minutes today trying to explain the very slow process of draining the chronic abscess cavity...I expect it will take up to six months. 09/17/16 09:42 09/18/16 09:52 09/19/16 13:05 09/20/16 07:58 09/23/16 07:41 09/24/16 09:17 Subjective: feels pressure suprapubic Objective: Vital Signs Temp Pulse Resp BP Pulse Ox 37.4 C 86 16 114/71 96 09/24/16 05:07 09/24/16 05:07 09/24/16 05:07 09/24/16 05:07 09/24/16 05:07 Microbiology 09/16/16 16:20 Gram Stain - Final Abdomen - Eswab 09/16/16 17:00 Gram Stain - Final Abdomen - Eswab Anaerobic Culture - Final Enterococcus Faecalis Laboratory Results 09/21/16 03:30 09/21/16 03:30 09/23/16 09/24/16 09/25/16 05:59 05:59 05:59 Intake Total 1650 970 Output Total 150 130 Balance 1500 970 -130 PT 17.8 SEC (12.0-15.0) H 09/14/16 14:20 INR 1.47 (0.83-1.16) H 09/14/16 14:20 Physical Exam - Physical Exam General Appearance: no apparent distress Abdomen: non-tender, soft, other (feculant drainage RLQ sump drains) ICD10 Worksheet Patient Problems: Problems Problem Status Onset Colon adenoma Acute
[2016-09-25] MEDS: metroNIDAZOLE 500 MG TAB PO SCH ×3 (06:10→21:22)
[2016-09-25] MEDS: CEFEPIME HCL 1 GM in D5W 50 ML IV SCH (06:10)
[2016-09-25] MEDS: ENOXAPARIN 40 MG/0.4 ML SYR SC SCH (09:30)
[2016-09-25] MEDS: SENNOSIDES/DOCUSATE SODIUM TAB PO SCH ×2 (09:31→21:22)
[2016-09-25] MEDS: POLYETHYLENE GLYCOL 3350 17 GM PKT PO SCH (09:31)
[2016-09-25] MEDS: LACTULOSE 20 GM/30 ML UDCUP PO SCH ×2 (09:31→22:03)
[2016-09-25] MEDS: PANTOPRAZOLE SODIUM 40 MG TAB PO SCH (09:31)
[2016-09-25] MEDS: MULTIVITAMINS 1 EACH TAB PO SCH (09:31)
--- NOTE | 2016-09-25 10:18 | PDDCSUM ---
Discharge Summary Discharge Summary: #[id number] MARIS Ruiz MD, FACS
--- NOTE | 2016-09-25 11:28 | GDS ---
[f rep st] DISCHARGE SUMMARY DISCHARGE DIAGNOSES: 1. Left subphrenic and right abdominal abscess. 2. 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 Reoperation for anastomotic leak on 08/26/2016, and extended right colectomy with primary anastomosis on 08/31/2016, surgeon German Verdin MD 3. Rheumatoid arthritis. 4. Blood loss anemia. 5. Moderate malnutrition with albumin of 2.1 at time of discharge. PROCEDURES DURING THIS HOSPITALIZATION: Percutaneous drainage right abdominal abscess on 09/08/2016, by Dr. Deng. Exchange of catheter and placement of large bore tube 09/14/2016, by Dr. Slade Miles. 09/16/2016, laparoscopic drainage of left subphrenic abscess and open drainage right abdominal abscess for colocutaneous fistula, surgeon Vipul Ruiz MD, FACS. CONSULTATIONS DURING THIS HOSPITALIZATION: Infectious Disease, Dr. Elissa Meyer. HOSPITAL COURSE: For details of admission history and physical, please see dictated summary. 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 Verdin. Unfortunately, the patient developed an anastomotic leak within the first few days after surgery and was returned to the operating room for attempted repair. This failed and subsequently a formal right colectomy was performed through a midline incision. The patient was subsequently discharged home and returned on 09/08/2016, with evidence of intra- abdominal abscess. This was initially drained, the larger collection being in the right abdomen by Dr. Deng at time of admission, and she was started on broad-spectrum antibiotics. The tube became plugged and was replaced by Dr. Miles , and the patient had spontaneous drainage of feculent material from an old port site. A second opinion consultation was requested by the patient and her family, and I saw her on the at which time she was prepared for a reoperation after a CT scan showed a persistent large right-sided abdominal abscess as well as an enlarging left subphrenic abscess. The left subphrenic collection was drained through a single laparoscopic port site in the left upper quadrant with a Hosea Leija drain. The right abdominal abscess was drained via an open incision with 2 sump drains for passive evacuation and long- term capturing of a colocolonic fistula. The fistula was observed in the upper aspect of the abscess cavity and was noted to be only a few millimeters in diameter but drained into a walled off unilocular collection that extended from the subhepatic space to the pelvis. The left subphrenic abscess grew E coli as well as Clostridium species. The E coli was resistant to ampicillin, cefoxitin , gentamicin, tobramycin, and Bactrim with intermediate sensitivity to cefazolin and levofloxacin. As the patient had been on cefepime, to which this organism was susceptible, she was continued on cefepime and Flagyl and defervesced following surgery. She was advanced in her diet, and was noted to have a fairly low output fistula drainage from the right abdominal drain which was captured into a colostomy bag. The sump drains were secured to the skin with suture and my plan was to advance these as an outpatient slowly over the next few months to try and capture this fistula in the right lower quadrant as a colocutaneous fistula. The left subphrenic drain was removed 2 days prior to discharge and her midline wound, which had previously dehisced, was granulating nicely with topical wound care and will very likely result in a hernia in the long run. She was discharged home to continue a one-week course of cefepime and Flagyl to be arranged as an outpatient and will follow up in my office in the coming week to remove sutures and to check her abdominal drain site. CONDITION AT TIME OF DISCHARGE: Improved. FOLLOWUP: Arranged in my office within the upcoming week. With Dr. Elissa Meyer within the next 2 weeks. DISCHARGE MEDICATIONS: Include ibuprofen 600 mg q.6 hours p.r.n. pain, metronidazole 500 mg p.o. q.8 hours, Senokot S 1 p.o. b.i.d., cefepime 2 g q.12 hours x7 days, and ferrous gluconate 20 mg p.o. b.i.d. After the patient was discharge I was contacted by her nurse, Kristen, to let me know that her intravenous Cefipime will not be available for home infusion until tomorrw. Her discharge was cancelled and she will be discharged home with [facility] tomorrow if her condition remains stable. Tin Ruiz MD, FACS 09/25/16 1250 /[id number]/MODL MTDD
[2016-09-25 20:28] VITALS: RESP 16
[2016-09-25] MEDS: CEFEPIME HCL 2 GM in D5W 100 ML IV SCH (21:20)
[2016-09-26 04:21] VITALS: TEMP 98.4
--- NOTE | 2016-09-26 06:12 | SOAPPROG ---
Downtime Inpatient Late Entry SOAP Note: Adri has had no fever overnight and feels well. Her LUQ sutures are removed this morning/her abd is less distended and non- tender/fistula ouput is fine texture mustard color Plan: DC home today after Cefipime to start home IV Abx infusion this PM FU my office next week for wound/fistula check. Tin Ruiz MD, FACS
[2016-09-26] MEDS: metroNIDAZOLE 500 MG TAB PO SCH ×2 (06:13→12:48)
[2016-09-26] MEDS: CEFEPIME HCL 2 GM in D5W 100 ML IV SCH (08:59)
[2016-09-26] MEDS: SENNOSIDES/DOCUSATE SODIUM TAB PO SCH (09:00)
[2016-09-26] MEDS: MULTIVITAMINS 1 EACH TAB PO SCH (09:00)
[2016-09-26] MEDS: PANTOPRAZOLE SODIUM 40 MG TAB PO SCH (09:00)
[2016-09-26 09:14] VITALS: BP 122/71; PULSE 96; O2SAT 96
--- NOTE | 2016-09-26 10:44 | PDIAF ---
- Diagnosis Diagnosis: Psa, E coli, clostridium Abdominal Abscess Code Status: Full Code - Medication Management Discharge Medications: Medications to Continue on Transfer Cefepime HCl [Maxipime] 2 gm IV Q12HRS #14 vial 09/25/16 [Last Taken Unknown] Ibuprofen [Motrin (*)] 600 mg PO Q6HRS PRN #30 tab 09/25/16 [Last Taken Unknown] Multivitamins [Multivitamin (*)] 1 each PO DAILY #0 tab 09/25/16 [Last Taken Unknown] Sennosides/Docusate Sodium [Senokot-S] 1 tab PO BID #30 tab 09/25/16 [Last Taken Unknown] metroNIDAZOLE [Flagyl 500 mg (*)] 500 mg PO Q8HRS #20 tab 09/25/16 [Last Taken Unknown] Foreign Agent Antibiotics: cefepime 2g IV [id number], flagyl 500mg PO TID Correction Antibiotic Stop Date: 09/30/16 Discharge Medications: Refer to the Discharge Home Medication list for PRN reason. PICC Care - Routine: Yes - Orders Services needed: Home Care, Registered Nurse Home Care Face to Face: I certify that this patient was under my care and that I had the required [id number] encounter meeting the encounter requirements on the discharge day. My findings support the fact that the patient is homebound as defined in CMS Chapter 7 Medicare Benefits Manual 30.1.1, The condition of the patient is such that there exists a normal inability to leave home and consequently, leaving home would require a considerable and taxing effort. Diet Recommendation: low fiber - Labs/Radiology CBC Date: 09/26/16 (weekly Monday) CMP Date: 09/26/16 (weekly Monday) Call or Fax Lab and Imaging Results to: jaron [id number] - Follow Up Care Current Providers and Referrals: Vipul Ruiz MD [Medical Doctor] - Maryuri Fung MD [Primary Care Provider] - As per Instructions Elissa Meyer MD [Medical Doctor] - (as needed)
[2016-09-26] MEDS: IBUPROFEN 600 MG TAB PO PRN (12:37)
== END 2016-09-26 13:04 | disposition home health service (06) | DRG 330 ==
LOC: F2W 20:16
PROVIDERS: ADMIT Surgery; ATTEND Surgery
PROC: 0DQE0ZZ Repair Large Intestine, Open Approach (ICD-10-PCS; principal; 2016-09-08)
PROC: 0W9F00Z Drainage of Abdominal Wall with Drainage Device, Open Approach (ICD-10-PCS; principal; 2016-09-08)
PROC: 0W9G4ZZ Drainage of Peritoneal Cavity, Percutaneous Endoscopic Approach (ICD-10-PCS; principal; 2016-09-08)
PROC: 0W9F30Z Drainage of Abdominal Wall with Drainage Device, Percutaneous Approach (ICD-10-PCS; 2016-09-08)
PROC: 0W9F30Z Drainage of Abdominal Wall with Drainage Device, Percutaneous Approach (ICD-10-PCS; 2016-09-14)
PROC: BW40ZZZ Ultrasonography of Abdomen (ICD-10-PCS; 2016-09-14)
PROC: 0WPFX0Z Removal of Drainage Device from Abdominal Wall, External Approach (ICD-10-PCS; 2016-09-14)
PROC: 02HV33Z Insertion of Infusion Device into Superior Vena Cava, Percutaneous Approach (ICD-10-PCS; 2016-09-19)
DX: K65.1 Peritoneal abscess (principal); K56.69 Other intestinal obstruction; T81.4XXA Infection following a procedure, initial encounter; T81.83XA Persistent postprocedural fistula, initial encounter; T81.31XA Disruption of external operation (surgical) wound, not elsewhere classified, initial encounter; K91.71 Accidental puncture and laceration of a digestive system organ or structure during a digestive system procedure; I30.9 Acute pericarditis, unspecified; D64.9 Anemia, unspecified; E46 Unspecified protein-calorie malnutrition; B96.20 Unspecified Escherichia coli [E. coli] as the cause of diseases classified elsewhere; B96.5 Pseudomonas (aeruginosa) (mallei) (pseudomallei) as the cause of diseases classified elsewhere; J84.9 Interstitial pulmonary disease, unspecified; M06.9 Rheumatoid arthritis, unspecified; Z86.010 Personal history of colon polyps; Z90.49 Acquired absence of other specified parts of digestive tract
CPT/HCPCS: 97161-GP; C1729; C1751; C1769; J0692; J0885; J1335; J1642; J1650; J1885; J2250; J2310; J2370; J2405; J2543; J2704; J2765; J2997; J3010; J3370; Q9967

== ENCOUNTER 2016-10-28 16:16 | Inpatient (IN) | payer OTHER ==
[2016-10-28] MEDS ORDERED: HYDROmorphONE/DILAUDID 1 MG/ML SYR ONE (16:43)
[2016-10-28] MEDS ORDERED: ONDANSETRON 4 MG/2 ML VIAL ONE (16:44)
[2016-10-28] MEDS ORDERED: ONDANSETRON 4 MG/2 ML VIAL IVP ONE ×2 (16:56→18:20)
[2016-10-28] MEDS ORDERED: HYDROmorphONE/DILAUDID 1 MG/ML SYR IVP ONE (16:56)
[2016-10-28] MEDS ORDERED: NS 1,000 ML IV ONE (16:59)
[2016-10-28] MEDS ORDERED: IOPAMIDOL (ISOVUE-300) 100 ML BTL IV ONE (17:00)
--- NOTE | 2016-10-28 17:02 | EDPHY ---
HPI/HX/ROS/PE/MDM Narrative: CHIEF COMPLAINT: Abdominal gonzalez. HISTORY OF PRESENT ILLNESS: The patient is a 56-year-old female with history of 4 abdominal surgeries since 08/23/16 ) complications including bowel perforation , and abscess) who presents with severe abdominal pain. The patient was last discharged on 09/26, since then she has been doing well. Over the past week she has felt intermittent abdominal pain. This morning the pain became severe. She was scheduled to have a CT at 5 p.m. today, but came to the ED because the pain was too severe. She reports a cramping and burning sensation to the lower abdomen. She has an ileostomy bag with 2 passive drains (treatment for right lower quadrant abscess). She denies any changes in drainage. No vomiting or diarrhea. REVIEW OF SYSTEMS: Aside from elements discussed in the HPI, a comprehensive 10-point review of systems was reviewed and is negative. PAST MEDICAL HISTORY: RA, joint surgery, interstitial lung disease, pericarditis , perforated bowel, partial colectomy. SOCIAL HISTORY: . VITAL SIGNS: Reviewed by me GENERAL: Cachectic appearing, very thin and smith. HEENT: Atraumatic. Eyes: No icterus, no injection. Mouth: moist mucous membranes. No erythema or lesions. Neck: supple with no adenopathy. LUNGS: Clear to auscultation bilaterally, crackles at the right base. CARDIAC: Regular rate and rhythm, no rubs, murmurs or gallops. ABDOMEN: Distended lower abdomen, left mid and left lower tenderness. Right lower quadrant has ileostomy bag with a small amount of smith liquid material. BACK: No CVA tenderness. EXTREMITIES: No trauma. No edema. Range of motion is normal throughout. NEURO: Alert and oriented, grossly nonfocal. SKIN: Warm and dry, no rash. PSYCHIATRIC: Normal mentation, no agitation. Portions of this note were transcribed by a medical records coder. I personally performed a history, physical exam, medical decision making, and confirmed accuracy of information the transcribed note. ED Course: The patient has a significant history of 4 abdominal surgeries in the past 2 months due to complications from an original polyp removal from the appendix. She comes to the ED today because of 1 week of intermittent abdominal pain that became severe today. The patient was scheduled to have a CT done at 5pm. Due to severity of the pain she came to the ED instead. On exam, the patient has distended lower abdomen, left mid and left lower quadrant tenderness. Right lower quadrant has ileostomy bag with a small amount of smith liquid material. Plan to proceed with CT abdomen/pelvis with contrast. BMP, Lipase, LFT, and UA ordered. IV was established, the patient received 1L normal saline, 6mg Morphine , and 4mg Zofran. CT abdomen/pelvis was obtained. I discussed findings with the radiologist, Dr. Santiago. Results: 1. Moderate partial small bowel obstruction left mid to upper abdomen involving distal jejunum to proximal ileum. 2. Packing material in the right lower quadrant in the location of previous abscess without recurrence. 3. Underlying interstitial pulmonary Patient has a normal white count. No history of fever. Chemistries are essentially unremarkable. CT scans results were discussed with Dr. Verdin. Patient will be admitted to the hospital for ongoing care. MDM: After obtaining the patient's history and performing an examination, differential diagnosis considered included but was not limited to colitis, abscess, volvulus, diverticulitis, ileus, bowel obstruction, urinary tract infection. - Data Points Imaging Results: Impression: 1. Moderate partial small bowel obstruction left mid to upper abdomen involving distal jejunum to proximal ileum. 2. Packing material in the right lower quadrant in the location of previous abscess without recurrence. 3. Underlying interstitial pulmonary fibrosis. 4. Large bowel constipation. Findings discussed with Gris Hadley M.D. at 17:44 hour, 10/28/2016. These findings were also discussed by telephone with Dr. Albert Verdin. Imaging: Discussed imaging studies w/ house calls nurse Radiologist Laboratory Results: Laboratory Results 10/28/16 16:58 10/28/16 16:58 10/28/16 10/28/16 10/28/16 16:58 16:58 16:58 WBC 6.11 10^3/uL 10^3/uL (3.80-9.50) RBC 5.34 10^6/uL H 10^6/uL (4.18-5.33) Hgb 12.3 g/dL L g/dL (12.6-16.3) Hct 39.0 % % (38.0-47.0) MCV 73.0 fL L fL (81.5-99.8) MCH 23.0 pg L pg (27.9-34.1) MCHC 31.5 g/dL L g/dL (32.4-36.7) RDW 18.6 % H % (11.5-15.2) Plt Count 372 10^3/uL 10^3/uL (150-400) MPV 9.9 fL fL (8.7-11.7) Neut % (Auto) 70.7 % % (39.3-74.2) Lymph % (Auto) 21.9 % % (15.0-45.0) Gem % (Auto) 6.5 % % (4.5-13.0) Eos % (Auto) 0.3 % L % (0.6-7.6) Baso % (Auto) 0.3 % % (0.3-1.7) Nucleat RBC Rel Count 0.0 % % (0.0-0.2) Absolute Neuts (auto) 4.31 10^3/uL 10^3/uL (1.70-6.50) Absolute Lymphs (auto) 1.34 10^3/uL 10^3/uL (1.00-3.00) Absolute Monos (auto) 0.40 10^3/uL 10^3/uL (0.30-0.80) Absolute Eos (auto) 0.02 10^3/uL L 10^3/uL (0.03-0.40) Absolute Basos (auto) 0.02 10^3/uL 10^3/uL (0.02-0.10) Absolute Nucleated RBC 0.00 10^3/uL 10^3/uL (0-0.01) Immature Gran % 0.3 % % (0.0-1.1) Immature Gran # 0.02 10^3/uL 10^3/uL (0.00-0.10) VBG Lactic Acid 1.3 mmol/L mmol/L (0.7-2.1) Sodium 136 mEq/L mEq/L (134-144) Potassium 4.2 mEq/L mEq/L (3.5-5.2) Chloride 97 mEq/L mEq/L (97-110) Carbon Dioxide 28 mEq/l mEq/l (22-31) Anion Gap 11 mEq/L mEq/L (8-16) BUN 16 mg/dL mg/dL (7-23) Creatinine 0.5 mg/dL L mg/dL (0.6-1.0) Estimated GFR > 60 Glucose 109 mg/dL H mg/dL (70-100) Calcium 9.6 mg/dL mg/dL (8.5-10.4) Total Bilirubin 0.5 mg/dL mg/dL (0.1-1.4) Conjugated Bilirubin 0.3 mg/dL mg/dL (0.0-0.5) Unconjugated Bilirubin 0.2 mg/dL mg/dL (0.0-1.1) AST 20 IU/L IU/L (14-46) ALT 28 IU/L IU/L (9-52) Alkaline Phosphatase 80 IU/L IU/L (38-126) Total Protein 7.4 g/dL g/dL (6.3-8.2) Albumin 3.9 g/dL g/dL (3.5-5.0) Lipase 157.0 IU/L IU/L (23-300) Medications Given: Discontinued Medications Hydromorphone HCl (Dilaudid) 1 mg IVP EDNOW ONE Stop: 10/28/16 16:57 Last Admin: 10/28/16 17:02 Dose: Not Given Sodium Chloride (Ns) 1,000 mls @ 0 mls/hr IV ONCE ONE PRN Reason: Wide Open Stop: 10/28/16 17:00 Last Admin: 10/28/16 17:08 Dose: 1,000 mls Morphine Sulfate (Morphine) 6 mg IVP EDNOW ONE Stop: 10/28/16 17:03 Last Admin: 10/28/16 17:02 Dose: 6 mg Ondansetron HCl (Zofran) 4 mg IVP EDNOW ONE Stop: 10/28/16 16:57 Last Admin: 10/28/16 17:02 Dose: 4 mg General Time Seen by Provider: 10/28/16 16:41 Initial Vital Signs: Initial Vital Signs Heart Rate 66 10/28/16 16:25 Respiratory Rate 15 10/28/16 16:25 Blood Pressure 118/73 10/28/16 16:25 O2 Sat (%) 99 10/28/16 16:25 O2 Delivery Mode Room Air O2 (L/minute) 2 Allergies/Adverse Reactions: No Known Allergies Allergy (Verified 10/28/16 16:24) Home Medications: Medication Instructions Recorded Cholecalciferol Vit D3 [Vitamin D3 5,000 units PO DAILY 10/28/16 (*)] Cyanocobalamin [Vitamin B12 (*)] 1,000 mcg PO DAILY 10/28/16 Ferrous Sulfate [Ferrous Sulf 325 325 mg PO DAILY 10/28/16 MG (*)] Herbals/Supplements -Info Only 1 ea PO DAILY 10/28/16 Ibuprofen [Motrin (*)] 200 - 400 mg PO DAILY PRN 10/28/16 Multivitamins [Multivitamin (*)] 1 each PO DAILY 10/28/16 Departure - Departure Disposition: [facility] Inpatient Acute Clinical Impression: Partial small bowel obstruction Abdominal pain Qualifiers: Abdominal location: left lower quadrant Qualified Code(s): R10.32 - Left lower quadrant pain Condition: Fair Report Scribed for: Gris Hadley Report Scribed by: Leonarda Garcia Date of Report: 10/28/16 Time of Report: 17:16
[2016-10-28 17:08] LABS: % IMMATURE GRANULYOCYTES 0.3 % (0.0-1.1); ABSOLUTE IMMATURE GRANULOCYTES 0.02 10^3/uL (0.00-0.10); ADD DIFF? NO; ADD MORPH? NO; ADD SCAN? NO; ATYPICAL LYMPHOCYTE FLAG 20 (0-99); FRAGMENT RBC FLAG 40 (0-99); HEMOGLOBIN 12.3 g/dL (12.6-16.3); LEFT SHIFT FLG 0 (0-99); LIPEMIA HEMOLYSIS FLAG 80 (0-99); MEAN CELL HEMOGLOBIN CONCENTR. 31.5 g/dL (32.4-36.7); MEAN PLATELET VOLUME 9.9 fL (8.7-11.7); PLATELET CLUMPS FLAG 10 (0-99); PLATELET COUNT 372 10^3/uL (150-400); RED BLOOD CELL COUNT 5.34 10^6/uL (4.18-5.33); RED CELL DISTRIBUTION WIDTH 18.6 % (11.5-15.2)
[2016-10-28 17:22] LABS: ALANINE AMINOTRANSFERASE 28 IU/L (9-52); ALBUMIN 3.9 g/dL (3.5-5.0); ALKALINE PHOSPHATASE 80 IU/L (38-126); ANION GAP 11 mEq/L (8-16); ASPARTATE AMINOTRANSFERASE 20 IU/L (14-46); BILIRUBIN,TOTAL 0.5 mg/dL (0.1-1.4); BILIRUBIN-CONJUGATED 0.3 mg/dL (0.0-0.5); BILIRUBIN-UNCONJUGATED 0.2 mg/dL (0.0-1.1); CALCIUM 9.6 mg/dL (8.5-10.4); CARBON DIOXIDE 28 mEq/l (22-31); CHLORIDE 97 mEq/L (97-110); CREATININE 0.5 mg/dL (0.6-1.0); GLOMERULAR FILTRATION RATE > 60; GLUCOSE 109 mg/dL (70-100); POTASSIUM 4.2 mEq/L (3.5-5.2); SODIUM 136 mEq/L (134-144); TOTAL PROTEIN 7.4 g/dL (6.3-8.2)
[2016-10-28] MEDS ORDERED: ONDANSETRON 4 MG/2 ML VIAL IVP PRN (18:20)
--- NOTE | 2016-10-28 18:55 | GHP ---
[f rep st] HISTORY AND PHYSICAL DATE OF ADMISSION: 10/28/2016 REFERRING PHYSICIAN: Vipul Ruiz MD HISTORY OF PRESENT ILLNESS: This is a 56-year-old female with a complicated history who presents wi th abdominal pain. Per the patient, she has had an approximately 1-week history of intermittent abd ominal pain. Over the last 2-3 days, this has increased markedly. The pain worsened today, and the patient had a CT scan ordered. However, the pain grew too intense and she presented to the emergen cy department. At this point, after morphine for her pain, her pain has improved markedly. She has not had any nausea or vomiting throughout this time. She has been tolerating p.o. normally and her bowels have been working normally. She has had distention but this has been present since her prio r surgery. The patient underwent laparoscopic right colectomy in July of 2016. Since then, she has had multiple procedures, including resection anastomosis of the leak and multiple drainages of abscesses. The most recent of these was performed approximately 1 month ago. The patient has an ab dominal drain that has been slowly advanced as an outpatient. The patient has not had any fever or chills. PAST MEDICAL HISTORY: Significant for rheumatoid arthritis, interstitial lung disease, as well as t he above. PAST SURGICAL HISTORY: Significant for the above and orthopedic surgery. MEDICATIONS: On admission include metronidazole and cefepime. ALLERGIES: No known drug allergies. SOCIAL HISTORY: The patient is a nonsmoker. PHYSICAL EXAMINATION: VITAL SIGNS: Temperature is 36.3 pulse 66, respirations 15, blood pressure i s 118/73. GENERAL: She is an alert female in no apparent distress. Her sclerae are anicteric. Th ere is no evidence of jugular venous distention. HEART: Regular rate and rhythm. LUNGS: Clear to auscultation bilaterally. ABDOMEN: Distended. It is essentially nontender to palpation at this t celine. No distinct masses are noted. There is a drain in the right abdomen which is putting out scan t serous/purulent material. EXTREMITIES: Without cyanosis, clubbing, or edema. DIAGNOSTIC DATA: The patient has a CBC with a white count of 6.1, hemoglobin 12.3, hematocrit 39, a nd platelets of 372. Chemistry demonstrates a sodium of 136, potassium 4.2, chloride 97, CO2 28, BU N 16, creatinine 0.5, and glucose of 109. LFTs are essentially normal with a lipase of 157. Lactic acid is 1.3. DIAGNOSTIC IMAGING: The patient had a CT scan of the abdomen and pelvis. This demonstrates a parti al small bowel obstruction. There is also significant stool and gas in the large bowel. No fluid c ollections are identified. The drainage tube is in place. ASSESSMENT: A 56-year-old female who is status post multiple surgeries with partial small-bowel obs truction. At this point, the patient's vitals are stable. She appears to be improving. PLAN: For conservative management including n.p.o. status and IV fluids. As she is not actively vo miting, I feel an NG tube will not be beneficial at this time. Other options including exploratory laparotomy were described in detail. The risks and benefits of each route were discussed. Signs an d symptoms of concern were explained. Their questions were answered. /[id number]/MODL
[2016-10-28] MEDS: LR 1,000 ML IV SCH (19:00)
[2016-10-29] MEDS: LR 1,000 ML IV SCH (04:45)
[2016-10-29 05:52] LABS: % IMMATURE GRANULYOCYTES 0.1 % (0.0-1.1); ABSOLUTE IMMATURE GRANULOCYTES 0.01 10^3/uL (0.00-0.10); ADD DIFF? NO; ADD MORPH? NO; ADD SCAN? NO; ATYPICAL LYMPHOCYTE FLAG 0 (0-99); FRAGMENT RBC FLAG 40 (0-99); HEMATOCRIT 34.9 % (38.0-47.0); HEMOGLOBIN 10.7 g/dL (12.6-16.3); LEFT SHIFT FLG 0 (0-99); LIPEMIA HEMOLYSIS FLAG 80 (0-99); MEAN CELL HEMOGLOBIN 23.3 pg (27.9-34.1); MEAN CELL HEMOGLOBIN CONCENTR. 30.7 g/dL (32.4-36.7); MEAN CELL VOLUME 75.9 fL (81.5-99.8); MEAN PLATELET VOLUME 10.1 fL (8.7-11.7); PLATELET CLUMPS FLAG 0 (0-99); PLATELET COUNT 309 10^3/uL (150-400); RED CELL DISTRIBUTION WIDTH 18.4 % (11.5-15.2)
[2016-10-29 06:06] LABS: ALANINE AMINOTRANSFERASE 22 IU/L (9-52); ALBUMIN 2.9 g/dL (3.5-5.0); ALKALINE PHOSPHATASE 57 IU/L (38-126); ANION GAP 8 mEq/L (8-16); ASPARTATE AMINOTRANSFERASE 19 IU/L (14-46); BILIRUBIN,TOTAL 0.5 mg/dL (0.1-1.4); CARBON DIOXIDE 27 mEq/l (22-31); CHLORIDE 104 mEq/L (97-110); CREATININE 0.5 mg/dL (0.6-1.0); GLOMERULAR FILTRATION RATE > 60; GLUCOSE 98 mg/dL (70-100); POTASSIUM 4.2 mEq/L (3.5-5.2); SODIUM 139 mEq/L (134-144); TOTAL PROTEIN 5.8 g/dL (6.3-8.2)
--- NOTE | 2016-10-29 10:12 | SOAPPROG ---
SOAP Progress Note Assessment/Plan: Assessment: Stable to slightly improved. Options reviewed, cont conservative management. Plan: 10/29/16 10:11 Subjective: Patient feels slightly better, still some abd pain. No N/V. No BM. Objective: Vital Signs Temp Pulse Resp BP Pulse Ox 37.0 C 72 16 102/47 L 92 10/29/16 08:28 10/29/16 08:28 10/29/16 08:28 10/29/16 08:28 10/29/16 08:28 Laboratory Results 10/29/16 05:36 10/29/16 05:36 10/28/16 10/29/16 10/30/16 05:59 05:59 05:59 Intake Total 1938 Balance 1938 Alert, NAD RRR Abd distended but soft, min TTP. No rebound/guarding. ICD10 Worksheet Patient Problems: Problems Problem Status Onset Abdominal pain Acute Partial small bowel obstruction Acute Colon adenoma Acute
[2016-10-29] MEDS ORDERED: BISACODYL 10 MG SUPP PR ONE (10:39)
--- NOTE | 2016-10-29 10:47 | PDCONSULT ---
Health Assessment And Treatment Teacher Note: Adri was admitted yesterday with abdominal distention and pain. CT with oral contrast showed extensive constipation, fecalization of the distal small bowel and contrast in the proximal jejunum/ileum suggesting SBO. She was admitted and made NPO with IV fluids. A KUB this morning showed her contrast to have passed fully into the colon. She feels a little better and has not passed any stool or flatus yet. I have been following her after drainage of an abdominal pelvic abscess over one month ago after ascending colectomy. She has no residual abscess or fluid collection on CT. Her drains are putting out 5ml/day and I have been advancing her drains 1" every 2 weeks. On exam she appears in no acute distress. Her abd is distended, tympanitic and diffusely mildly tender without guarding. Her drainage is minimal smith colored. I would recommend a trial of clear liquids and suppositories/enemas. If symptoms recur I would suggest a formal SBFT study. Tin Ruiz MD, FACS
[2016-10-29] MEDS: CARBAMIDE PEROXIDE 15 ML BOTTLE EACHEAR SCH ×2 (11:25→20:10)
[2016-10-29 11:44] LABS: COLOR YELLOW; LEUKOCYTE ESTERASE,URINE NEGATIVE (NEGATIVE); NITRITE,URINE NEGATIVE (NEGATIVE)
[2016-10-29 11:50] LABS: MUCUS TRACE /lpf (NONE-1+)
[2016-10-29] MEDS ORDERED: NS 1,000 ML IV ONE (14:30)
[2016-10-30] MEDS: LR 1,000 ML IV SCH ×2 (00:10→20:38)
[2016-10-30 05:04] LABS: % IMMATURE GRANULYOCYTES 0.4 % (0.0-1.1); ABSOLUTE IMMATURE GRANULOCYTES 0.03 10^3/uL (0.00-0.10); ADD DIFF? NO; ADD MORPH? NO; ADD SCAN? NO; ATYPICAL LYMPHOCYTE FLAG 0 (0-99); FRAGMENT RBC FLAG 20 (0-99); HEMATOCRIT 32.5 % (38.0-47.0); HEMOGLOBIN 9.9 g/dL (12.6-16.3); LEFT SHIFT FLG 0 (0-99); LIPEMIA HEMOLYSIS FLAG 80 (0-99); MEAN CELL HEMOGLOBIN 23.2 pg (27.9-34.1); MEAN CELL HEMOGLOBIN CONCENTR. 30.5 g/dL (32.4-36.7); MEAN CELL VOLUME 76.3 fL (81.5-99.8); MEAN PLATELET VOLUME 10.1 fL (8.7-11.7); PLATELET CLUMPS FLAG 0 (0-99); PLATELET COUNT 290 10^3/uL (150-400); RED BLOOD CELL COUNT 4.26 10^6/uL (4.18-5.33); RED CELL DISTRIBUTION WIDTH 17.8 % (11.5-15.2)
[2016-10-30 05:23] LABS: ALANINE AMINOTRANSFERASE 24 IU/L (9-52); ALBUMIN 2.6 g/dL (3.5-5.0); ALKALINE PHOSPHATASE 51 IU/L (38-126); ANION GAP 12 mEq/L (8-16); ASPARTATE AMINOTRANSFERASE 18 IU/L (14-46); BILIRUBIN,TOTAL 0.6 mg/dL (0.1-1.4); CALCIUM 8.3 mg/dL (8.5-10.4); CARBON DIOXIDE 24 mEq/l (22-31); CHLORIDE 101 mEq/L (97-110); CREATININE 0.5 mg/dL (0.6-1.0); GLOMERULAR FILTRATION RATE > 60; GLUCOSE 74 mg/dL (70-100); POTASSIUM 3.8 mEq/L (3.5-5.2); SODIUM 137 mEq/L (134-144); TOTAL PROTEIN 5.2 g/dL (6.3-8.2)
[2016-10-30] MEDS ORDERED: BISACODYL 10 MG SUPP PR PRN (08:00)
[2016-10-30] MEDS ORDERED: BISACODYL 10 MG SUPP PR ONE (08:15)
[2016-10-30] MEDS ORDERED: LACTULOSE 20 GM/30 ML UDCUP PO PRN (08:16)
--- NOTE | 2016-10-30 08:19 | PDCONSULT ---
Roving Department End Finder Note: feels better this AM/no further cramping one small bowel movement last night patient has chronic low BP/not symptomatic Abd: soft/+BS, mildly distended Imp: clinically improved Rec: continue clear liquids/increase bowel program continue IV for now S MD Joseph, FACS
[2016-10-30] MEDS: CARBAMIDE PEROXIDE 15 ML BOTTLE EACHEAR SCH ×3 (10:44→20:30)
[2016-10-31] MEDS: LR 1,000 ML IV SCH ×3 (05:08→21:32)
[2016-10-31 05:35] LABS: % IMMATURE GRANULYOCYTES 0.3 % (0.0-1.1); ABSOLUTE IMMATURE GRANULOCYTES 0.01 10^3/uL (0.00-0.10); ADD DIFF? NO; ADD MORPH? NO; ADD SCAN? NO; ATYPICAL LYMPHOCYTE FLAG 50 (0-99); FRAGMENT RBC FLAG 40 (0-99); HEMATOCRIT 34.5 % (38.0-47.0); HEMOGLOBIN 10.6 g/dL (12.6-16.3); LEFT SHIFT FLG 0 (0-99); LIPEMIA HEMOLYSIS FLAG 80 (0-99); MEAN CELL HEMOGLOBIN 23.3 pg (27.9-34.1); MEAN CELL HEMOGLOBIN CONCENTR. 30.7 g/dL (32.4-36.7); MEAN CELL VOLUME 75.8 fL (81.5-99.8); MEAN PLATELET VOLUME 10.4 fL (8.7-11.7); PLATELET CLUMPS FLAG 10 (0-99); PLATELET COUNT 298 10^3/uL (150-400); RED BLOOD CELL COUNT 4.55 10^6/uL (4.18-5.33); RED CELL DISTRIBUTION WIDTH 17.9 % (11.5-15.2)
[2016-10-31 05:56] LABS: ALANINE AMINOTRANSFERASE 27 IU/L (9-52); ALBUMIN 2.8 g/dL (3.5-5.0); ALKALINE PHOSPHATASE 54 IU/L (38-126); ANION GAP 7 mEq/L (8-16); ASPARTATE AMINOTRANSFERASE 23 IU/L (14-46); BILIRUBIN,TOTAL 0.4 mg/dL (0.1-1.4); CALCIUM 8.5 mg/dL (8.5-10.4); CARBON DIOXIDE 29 mEq/l (22-31); CHLORIDE 102 mEq/L (97-110); CREATININE 0.5 mg/dL (0.6-1.0); GLOMERULAR FILTRATION RATE > 60; GLUCOSE 85 mg/dL (70-100); POTASSIUM 3.9 mEq/L (3.5-5.2); SODIUM 138 mEq/L (134-144); TOTAL PROTEIN 5.7 g/dL (6.3-8.2)
[2016-10-31] MEDS: CARBAMIDE PEROXIDE 15 ML BOTTLE EACHEAR SCH ×2 (10:29→21:28)
--- NOTE | 2016-11-01 08:46 | SOAPPROG ---
SOAP Progress Note Assessment/Plan: Assessment: Plan: Subjective: liquid stools/no more cramps Objective: Vital Signs Temp Pulse Resp BP Pulse Ox 36.8 C 58 L 17 128/74 H 93 11/01/16 04:42 11/01/16 04:42 11/01/16 04:42 11/01/16 04:42 11/01/16 04:42 Laboratory Results 10/31/16 04:53 10/31/16 04:53 10/31/16 11/01/16 11/02/16 05:59 05:59 05:59 Intake Total 4253 3910 Output Total 70 Balance 4183 3910 Physical Exam - Physical Exam General Appearance: no apparent distress Cardiac/Chest: regular rate, rhythm Abdomen: normal bowel sounds, non-tender, soft Neuro/Psych: normal mood/affect, oriented x 3 ICD10 Worksheet Patient Problems: Problems Problem Status Onset Abdominal pain Acute Partial small bowel obstruction Acute Colon adenoma Acute
[2016-11-01] MEDS: LACTULOSE 20 GM/30 ML UDCUP PO SCH ×3 (11:05→21:26)
[2016-11-01] MEDS: MAGNESIUM OXIDE 400 MG TAB PO SCH (11:05)
[2016-11-01] MEDS: POLYETHYLENE GLYCOL 3350 17 GM PKT PO SCH (11:05)
[2016-11-01] MEDS: CARBAMIDE PEROXIDE 15 ML BOTTLE EACHEAR SCH ×2 (11:06→21:27)
[2016-11-01] MEDS: GENTAMICIN 0.3% OPHT DROPS 5ML RTEYE SCH ×4 (11:28→21:27)
[2016-11-01] MEDS: LR 1,000 ML IV SCH (16:25)
[2016-11-02] MEDS: GENTAMICIN 0.3% OPHT DROPS 5ML RTEYE SCH ×3 (01:02→09:36)
[2016-11-02 09:31] VITALS: BP 115/67; PULSE 69; RESP 16; TEMP 98.4; O2SAT 97
[2016-11-02] MEDS: LACTULOSE 20 GM/30 ML UDCUP PO SCH (09:36)
[2016-11-02] MEDS: POLYETHYLENE GLYCOL 3350 17 GM PKT PO SCH (09:36)
[2016-11-02] MEDS: MAGNESIUM OXIDE 400 MG TAB PO SCH (09:36)
[2016-11-02] MEDS: CARBAMIDE PEROXIDE 15 ML BOTTLE EACHEAR SCH (09:36)
[2016-11-02] MEDS ORDERED: NYSTATIN SUSP 500000 UNIT/5 ML UDCUP PO SCH (16:00)
--- NOTE | 2016-11-03 15:14 | PDIAF ---
- Diagnosis Code Status: Full Code - Medication Management Discharge Medications: Medications to Continue on Transfer Cholecalciferol Vit D3 [Vitamin D3 (*)] 5,000 units PO DAILY 10/28/16 [Last Taken Unknown] Cyanocobalamin [Vitamin B12 (*)] 1,000 mcg PO DAILY 10/28/16 [Last Taken Unknown ] Ferrous Sulfate [Ferrous Sulf 325 MG (*)] 325 mg PO DAILY 10/28/16 [Last Taken Unknown] Herbals/Supplements -Info Only 1 ea PO DAILY 10/28/16 [Last Taken Unknown] Ibuprofen [Motrin (*)] 200 - 400 mg PO DAILY PRN 10/28/16 [Last Taken Unknown] Multivitamins [Multivitamin (*)] 1 each PO DAILY 10/28/16 [Last Taken 10/26/16] Discharge Medications: Refer to the Discharge Home Medication list for PRN reason. - Orders Services needed: Home Care (Wound/drain care) Home Care Face to Face: I certify that this patient was under my care and that I had the required [id number] encounter meeting the encounter requirements on the discharge day. My findings support the fact that the patient is homebound as defined in CMS Chapter 7 Medicare Benefits Manual 30.1.1, The condition of the patient is such that there exists a normal inability to leave home and consequently, leaving home would require a considerable and taxing effort. Diet Recommendation: no restrictions on diet - Follow Up Care Current Providers and Referrals: Vipul Ruiz MD [Medical Doctor] - NONE *PRIMARY CARE P,. [Primary Care Provider] - As per Instructions
== END 2016-11-02 14:19 | disposition home health service (06) | DRG 389 ==
LOC: INTOOBSV 17:48 → EDSTATUS 18:00 → F1N 18:33 → OBSVTOIN 10-29 10:12
PROVIDERS: ADMIT Surgery; ATTEND Surgery
DX: K56.60 Unspecified intestinal obstruction (principal); K59.00 Constipation, unspecified; Z93.2 Ileostomy status; M06.9 Rheumatoid arthritis, unspecified; J84.9 Interstitial pulmonary disease, unspecified
CPT/HCPCS: 96374; G0378; J1170; J2405; Q9967

== ENCOUNTER → 2016-11-23 | Outpatient (CLI) | payer OTHER | LOC: FIMAGING 10:48 | PROVIDERS: ATTEND Surgery | DX: K63.89 Other specified diseases of intestine (principal); Z90.49 Acquired absence of other specified parts of digestive tract ==

== ENCOUNTER → 2016-12-21 | Outpatient (CLI) | payer OTHER | LOC: FIMAGING 15:57 | PROVIDERS: ATTEND Surgery | DX: J84.9 Interstitial pulmonary disease, unspecified (principal) ==

== ENCOUNTER 2017-04-07 10:30 | Observation (INO) | payer OTHER ==
[2017-04-07] MEDS ORDERED: BACITRACIN ZINC 14.2 GM OINTTUBE TP ONE (11:39)
[2017-04-07] MEDS ORDERED: BUPIVACAINE 0.5% 30 ML SDV ONE (11:39)
[2017-04-07] MEDS ORDERED: LIDOCAINE 1% 300 MG/30 ML SDV ONE (11:39)
[2017-04-07] MEDS ORDERED: LR 1,000 ML IV ONE (12:13)
[2017-04-07] MEDS ORDERED: CEFAZOLIN 1 GM/DEXTROSE/50 ML BAG IV ONE (12:36)
--- NOTE | 2017-04-07 12:37 | PDANEPAE ---
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 - Neurologic History Hx Cerebrovascular Accident: No Hx Seizures: No Hx Dementia: No - Endocrine History Hx Diabetes: No - Renal History Hx Renal Disorders: No - Liver History Hx Hepatic Disorders: No - Neurological & Psychiatric Hx Hx Neurological and Psychiatric Disorders: No - Cancer History Hx Cancer: No - Congenital Disorder History Hx Congenital Disorders: No - GI History Hx Gastrointestinal Disorders: No - Other Health History Other Health History: RA since 2013 - Chronic Pain History Chronic Pain: Yes (SHOULDER & NECK W/ RA) - Surgical History Prior Surgeries: 09/15/16 FISTULA DRAINED. 09/08/16 ABSCESS DRAINED. 08/31/16 REVISION OF COLON REPAIR. REPAIR RUPTURED COLON 08/26/16. COLECTOMY 08/23/16. COLONOSCOPY W/POLYP. both wrists 2013 and 2014. right thumb tendon 2014. breast implants ANE Review of Systems Review of Systems: - Exercise capacity METS (RN): 4 METS ANE Patient History - Allergies Allergies/Adverse Reactions: hydromorphone [From Dilaudid] Allergy (Verified 03/15/17 11:01) Vomiting - Home Medications Home Medications: Cyanocobalamin [Vitamin B12 (*)] 1,000 mcg PO DAILY 10/28/16 [Last Taken ] Herbals/Supplements -Info Only 1 ea PO DAILY 10/28/16 [Last Taken 04/06/17] Ibuprofen [Motrin (*)] 200 mg PO DAILY PRN 10/28/16 [Last Taken 03/30/17] Multivitamins [Multivitamin (*)] 1 each PO DAILY 10/28/16 [Last Taken 04/06/17] Cholecalciferol Vit D3 [Vitamin D3 2000 units tab (OTC)] 4,000 units PO DAILY [Last Taken 04/04/17] - NPO status NPO Since - Liquids (Date): 04/06/17 NPO Since - Liquids (Time): 00:00 NPO Since - Solids (Date): 04/06/17 NPO Since - Solids (Time): 18:00 - Smoking Hx Smoking Status: Never smoked - Family Anes Hx Family Hx Anesthesia Complications: none ANE Labs/Vital Signs - Vital Signs Blood Pressure: 120/71 Heart Rate: 60 Respiratory Rate: 16 O2 Sat (%): 99 Height: 167.64 cm Weight: 49.895 kg ANE Physical Exam - Airway Neck exam: FROM Mallampati Score: Class 1 Mouth exam: normal dental/mouth exam - Pulmonary Pulmonary: no respiratory distress - Cardiovascular Cardiovascular: regular rate and rhythym - ASA Status ASA Status: II ANE Anesthesia Plan Anesthesia Plan: general endotracheal anesthesia
[2017-04-07] MEDS ORDERED: MIDAZOLAM 2 MG/2 ML VIAL IVP ONE (12:39)
[2017-04-07] MEDS ORDERED: ONDANSETRON 4 MG/2 ML VIAL ONE (12:41)
[2017-04-07] MEDS ORDERED: ROCURONIUM 50 MG/5 ML VIAL ONE (12:41)
[2017-04-07] MEDS ORDERED: DEXAMETHASONE 4 MG/ML VIAL ONE (12:41)
[2017-04-07] MEDS ORDERED: LIDOCAINE 2% 5 ML SDV ONE (12:41)
[2017-04-07] MEDS ORDERED: PROPOFOL 200 MG/20 ML VIAL ONE (12:42)
[2017-04-07] MEDS ORDERED: fentaNYL 100 MCG/2 ML INJ ONE ×4 (12:42→15:18)
--- NOTE | 2017-04-07 12:42 | PDHPUP ---
History & Physical Update H&P update statement: This history and physical update is based on an assessment of the patient which was completed after admission or registration (within 24 hours), but prior to the surgery/procedure.
[2017-04-07] MEDS ORDERED: ceFAZolin 2 GM/DEXTROSE 100 ML IV ONE (13:00)
[2017-04-07] MEDS ORDERED: PROMETHAZINE HCL 25 MG/ML INJ IVP PRN (13:23)
[2017-04-07] MEDS ORDERED: NALOXONE HCL 0.4 MG/ML INJ IVP PRN (13:23)
[2017-04-07] MEDS ORDERED: ONDANSETRON 4 MG/2 ML VIAL IVP PRN ×2 (13:23→14:36)
--- NOTE | 2017-04-07 14:36 | POSTOPPROG ---
Post Op Note Date of Operation: 04/07/17 Surgeon: Vipul Ruiz (, FACS) Slubber Hand: Sundeep Hwang MD, FACS Anesthesiologist: Terence Marie MD Anesthesia: GET(General Endotracheal) Pre-op Diagnosis: incisional hernia Post-op Diagnosis: same Procedure: repair of incisional hernia/vertical abdominoplasty Inf/Abcess present in the surg proc area at time of surgery?: No EBL: 50-100 Drains: Hosea Leija
--- NOTE | 2017-04-07 15:10 | POSTANESTH ---
Post Anesthetic Evaluation Cardiovascular Status: Normal, Stable Respiratory Status: Normal, Stable Level of Consciousness/Mental Status: Can Participate in Eval Pain Control: Adequate, Prn Tx Ordered Nausea/Vomiting Control: Adequate, Prn Tx Ordered Complications Possibly Related to Anesthesia: None Noted
[2017-04-07] MEDS: fentaNYL 100 MCG/2 ML INJ IVP PRN ×2 (15:20→15:30)
[2017-04-07] MEDS ORDERED: traMADol 50 MG TAB ONE (15:57)
[2017-04-07] MEDS: traMADol 50 MG TAB PO PRN (15:59)
--- NOTE | 2017-04-07 19:33 | GOP ---
[f rep st] OPERATIVE REPORT DATE OF OPERATION: 04/07/2017 SURGEON: Vipul Ruiz MD NUTS AND BOLTS ASSEMBLER: Sundeep Hwang MD ANESTHESIOLOGIST: Indra Marie MD PREOPERATIVE DIAGNOSIS: Incisional hernia. POSTOPERATIVE DIAGNOSIS: Incisional hernia. PROCEDURE PERFORMED: Repair of incisional hernia. FINDINGS: Large midline defect related to multiple prior laparotomies. Relatively few intraabdomina l adhesions. Intact rectus muscle and sheath bilaterally with primary closure accomplished. Vertica l abdominoplasty performed by Dr. Hwang, to be dictated as a separate operative report. ESTIMATED BLOOD LOSS: 100 cc. DESCRIPTION OF PROCEDURE: After informed consent was obtained, the patient was brought to the operat ing room and placed under general anesthesia. The abdomen was prepped and draped in the usual fashio n. Before proceeding, a time-out and identification of the patient was performed. The prior midline incision had resulted in a closure by secondary intention with a very thinned out s kin over the midline. This was excised elliptically in a vertical fashion encompassing the old scar. This was discarded. The hernia sac was entered. The peritoneal cavity was entered and the omentum dissected from the anterior abdominal wall on both sides. This allowed assessment of the midline fa scia, which was markedly attenuated and non-existent for most of the length of the incisional hernia which was approximately 15 cm from the [id number] dimension. The weakened tissues were dissec pam back to the edge of the rectus sheath on either side and discarded. Midline defect was then repa ired with continuous running 0 PDS suture. The fascia above and below the central defect was imbrica pam with interrupted 0 Nurolon sutures which were then used to reinforce the midline closure in inter rupted retention sutures reinforcing the PDS closure. Upon completion, the repair was intact without undue tension. Dr. Hwang then performed a vertical a bdominoplasty, to be dictated as a separate operative report and closure was accomplished with layers of absorbable suture and neftali. A 10-Slovak round Hosea-Leija drain was brought through a separ ate stab wound and secured to the skin with 3-0 silk suture. The patient was extubated and brought t o the recovery room in satisfactory condition. Needle, sponge, and instrument count were correct. COMPLICATIONS: None. /[id number]/MODL
[2017-04-07] MEDS: IBUPROFEN 200 MG TAB PO PRN (21:48)
[2017-04-08] MEDS: ACETAMINOPHEN 325 MG TAB PO PRN (03:11)
[2017-04-08] MEDS: LR 1,000 ML IV SCH ×2 (03:48→17:19)
[2017-04-08 05:04] LABS: HEMATOCRIT 33.7 % (38.0-47.0); HEMOGLOBIN 11.2 g/dL (12.6-16.3)
[2017-04-08 05:20] LABS: ANION GAP 10 mEq/L (8-16); CALCIUM 8.9 mg/dL (8.5-10.4); CARBON DIOXIDE 25 mEq/l (22-31); CHLORIDE 99 mEq/L (97-110); CREATININE 0.6 mg/dL (0.6-1.0); GLOMERULAR FILTRATION RATE > 60; GLUCOSE 102 mg/dL (70-100); POTASSIUM 4.7 mEq/L (3.5-5.2); SODIUM 134 mEq/L (134-144)
[2017-04-08] MEDS: traMADol 50 MG TAB PO PRN (09:00)
[2017-04-08] MEDS: ENOXAPARIN 40 MG/0.4 ML SYR SC SCH (09:06)
[2017-04-08] MEDS: MULTIVITAMINS 1 EACH TAB PO SCH (09:06)
[2017-04-08] MEDS: CYANO/VITAMIN B12 1000 MCG TAB PO SCH (09:06)
[2017-04-08] MEDS ORDERED: oxyCODONE IR 5 MG TAB PO PRN (12:04)
[2017-04-08] MEDS ORDERED: POLYETHYLENE GLYCOL 3350 17 GM PKT PO PRN (12:05)
[2017-04-08] MEDS ORDERED: BISACODYL 10 MG SUPP PR PRN (12:05)
[2017-04-08] MEDS ORDERED: MAGNESIUM HYDROXIDE 30 ML UDCUP PO PRN (12:05)
[2017-04-08] MEDS ORDERED: LACTULOSE 20 GM/30 ML UDCUP PO PRN (12:06)
--- NOTE | 2017-04-08 12:12 | SOAPPROG ---
SOAP Progress Note Assessment/Plan: Assessment: post op ileus/s/p repair incisional hernia with vertical abdominoplasty Plan:discussed transition to po meds and diet trial of Oxycodone increase activity anticipate discharger tomorrow 04/08/17 12:10 Subjective: poor pain control/belching/no flatus Objective: Vital Signs Temp Pulse Resp BP Pulse Ox 36.6 C 54 L 18 97/65 L 94 04/08/17 08:26 04/08/17 08:26 04/08/17 08:26 04/08/17 08:26 04/08/17 08:26 Laboratory Results 04/08/17 04:25 04/08/17 04:25 04/07/17 04/08/17 04/09/17 05:59 05:59 05:59 Intake Total 2343 Output Total 75 Balance 2268 Physical Exam - Physical Exam General Appearance: alert, mild distress Respiratory: lungs clear Cardiac/Chest: regular rate, rhythm Abdomen: soft, other (binder/dressings intact, minimal JENNY output/hypoactive bowel sounds) Skin: normal color, warm/dry Neuro/Psych: alert, normal mood/affect, oriented x 3 ICD10 Worksheet Patient Problems: Problems Problem Status Onset Abdominal pain Acute Colon adenoma Acute Partial small bowel obstruction Acute
[2017-04-08] MEDS: SENNOSIDES/DOCUSATE SODIUM TAB PO SCH ×2 (14:05→20:59)
[2017-04-08] MEDS: IBUPROFEN 200 MG TAB PO PRN ×2 (16:11→21:54)
[2017-04-09] MEDS: ACETAMINOPHEN 325 MG TAB PO PRN (03:05)
--- NOTE | 2017-04-09 06:24 | PDDCSUM ---
Discharge Summary Discharge Summary: DOA: 04/07/17 DOD: 04/09/17 DC Dx: incisional hernia rheumatoid arthritis Procedure: 04/07 repair of incisional hernia/vertical abdominoplasty Course: Adri was admitted for repair of a large incisional hernia after recovering from multiple laparotomies earlier this year. This was repaired primarily without mesh Dr. Hwang performed a vertical abdominoplasty at the time of her hernia repair. Following surgery she had a brief ileus and was advanced in her diet as this resolved. She was discharged home on POD #2 with return of bowel function, ambulatory and afebrile. She will follow up this week for drain removal and staple removal with Dr. Hwang and with me the following week. DC meds: Oxy-IR #30, Ibuprofen, Senokot-S, vits/supplements S MD Joseph, FACS
--- NOTE | 2017-04-09 09:03 | GOP ---
[f rep st] OPERATIVE REPORT DATE OF OPERATION: 04/07/2017 SURGEON: Sundeep Hwang MD ANESTHESIA: General. ANESTHESIOLOGIST: Indra Marie MD PREOPERATIVE DIAGNOSIS: Abdominal ventral hernia with skin redundancy. POSTOPERATIVE DIAGNOSIS: Abdominal ventral hernia with skin redundancy. PROCEDURE PERFORMED: Major scar revision, central abdomen. FINDINGS: INDICATIONS: A 56-year-old female with significant, wide, abdominal ventral hernia postoperative wit h associated skin redundancy. She will undergo a ventral hernia repair by Dr. Ruiz and in combinatio n with this, have a skin tightening procedure to address the tissue redundancy. After preoperative c onsultation obtaining informed consent, the operative procedure was scheduled. DESCRIPTION OF PROCEDURE: After completion of the ventral herniorrhaphy by Dr. Ruiz, the excess skin was excised vertically. Approximately 7 cm of skin was removed transversely and excised vertically. A 10-Sing[place]an drain was placed. The incision was closed in layers in a complex fashion utilizing int errupted and running layered suture of 3-0 Vicryl, running 4-0 V-Juan suture, and skin neftali. A lig ht compressive dressing was applied. An abdominal binder was applied. The patient tolerated the pro cedure well. She was awakened in the operating room, taken to the recovery room in apparent satisfac tory condition. /[id number]/MODL
[2017-04-09 09:12] VITALS: BP 111/63; PULSE 62; RESP 16; TEMP 98.4; O2SAT 97
[2017-04-09] MEDS: IBUPROFEN 200 MG TAB PO PRN (10:43)
--- NOTE | 2017-04-09 11:35 | ASMTCMCOM ---
CM Note CM Note Notes: Chart reviewed. Medically cleared per MD for discharge to [facility]. No needs identified. CM available should need arise. Date Signed: 04/09/2017 11:34 AM Electronically Signed By:Kimmy Diaz RN
[2017-04-09] MEDS: ENOXAPARIN 40 MG/0.4 ML SYR SC SCH (12:01)
[2017-04-09] MEDS: CYANO/VITAMIN B12 1000 MCG TAB PO SCH (12:01)
[2017-04-09] MEDS: MULTIVITAMINS 1 EACH TAB PO SCH (12:01)
[2017-04-09] MEDS: SENNOSIDES/DOCUSATE SODIUM TAB PO SCH (12:02)
== END 2017-04-09 12:56 | disposition home or self-care (01) ==
LOC: F3N 10:30 → F1N 16:23
PROVIDERS: ADMIT Surgery; ATTEND Surgery
PROC: 0WQF0ZZ Repair Abdominal Wall, Open Approach (ICD-10-PCS; principal; 2017-04-07 12:00)
PROC: 0HB7XZZ Excision of Abdomen Skin, External Approach (ICD-10-PCS; 2017-04-07 12:00)
DX: K43.2 Incisional hernia without obstruction or gangrene (principal); L98.7 Excessive and redundant skin and subcutaneous tissue; K91.89 Other postprocedural complications and disorders of digestive system; Z41.1 Encounter for cosmetic surgery; M06.9 Rheumatoid arthritis, unspecified
CPT/HCPCS: 15830; 49560; G0378; J0171; J0690; J1100; J1650; J2250; J2405; J2704; J3010

== ENCOUNTER → 2017-06-21 | Outpatient (CLI) | payer OTHER | LOC: FIMAGING 14:10 | PROVIDERS: ATTEND Obstetrics & Gynecology | DX: Z12.31 Encounter for screening mammogram for malignant neoplasm of breast (principal) | CPT/HCPCS: G0202 ==